=== PATIENT | male | born 1990 | race African-American/Black ===

== ENCOUNTER → 2017-09-23 00:25 | Outpatient (CLI) | payer MEDICAID, SELFPAY ==
[2017-09-23] MEDS: Gadoterate meglumine 20 ML VIAL 17 ML IVP (15:35)
--- NOTE | 2017-09-23 15:45 | DI.REPORT_ITS ---
SYMPTOMS/DIAGNOSIS: ARTERIOVENOUS MALFORMATION S/P PROTON BEAM RADIATION, Q28.2 MRI OF THE BRAIN: Pre and post contrast examination was performed. Comparison is with the prior examinations. There is again seen a large arteriovenous malformation involving the right frontal lobe. There is numerous artifact present, consistent with prior embolization. There are persistent flow voids present within the malformation. There are large superficial cortical draining veins seen along the right frontal and right parietal lobe, in addition to draining veins seen adjacent to the anterior right temporal lobe. On the FLAIR images, there is again seen mild hyperintense signal and there is a persistent mild midline shift to the left of approximately 4-5 mm. The diffusion weighted images show no evidence of an acute infarct. No acute intracranial hemorrhage is present. The ventricles are intact. The basilar cisterns are patent. There is a small mucus retention cyst or polyp in the right maxillary sinus. There is mild mucosal thickening seen in the ethmoid air cells. The remaining visualized paranasal sinuses are clear. No fluid levels are present. The mastoid air cells are well pneumatized. IMPRESSION: 1. 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 Persistent large cortical draining veins and mild leftward shift of the midline structures. 2. No acute hemorrhage or infarct.
== END ==
PROVIDERS: PCP Family Medicine; Visit Provider Psychiatry & Neurology Neurology
DX: Q28.2 Arteriovenous malformation of cerebral vessels (principal); Z98.890 Other specified postprocedural states
CPT/HCPCS: 70553

== ENCOUNTER 2017-09-30 08:21 | Emergency (ER) | payer MEDICAID, SELFPAY ==
[2017-09-30] VITALS (7 sets, daily range): BP systolic 115; BP diastolic 48; PULSE 76; RESP 16; TEMP 36.5; O2SAT 90–100
[2017-09-30] MEDS: Normal Saline 1,000 ML 1000 ML IV ×2 (08:40→09:44)
[2017-09-30] MEDS: Ondansetron 4 MG/2 ML VIAL (08:43)
[2017-09-30] MEDS: Pantoprazole 40 MG VIAL IVP (08:49)
[2017-09-30] MEDS: methylPREDNISolone SUCC 125 MG VIAL IVP (08:50)
[2017-09-30] MEDS: Acetaminophen 500 MG TAB 1000 MG PO (08:51)
[2017-09-30] MEDS: diphenhydrAMINE 50 MG/ML VIAL 25 MG IVP (08:53)
[2017-09-30] MEDS: Metoclopramide 10 MG/2 ML VIAL IVP (08:55)
[2017-09-30 09:06] LABS: Abs Immature Grans 0.03 k/cumm (0.0-0.09); Absolute Basophil Count 0.02 k/cumm (0.0-0.2); Absolute Eosinophil Count 0.17 k/cumm (0.0-0.7); Absolute Lymphocyte Count 1.41 k/cumm (1.2-3.4); Absolute Monocyte Count 0.58 k/cumm (0.11-0.7); Absolute Neutrophil Count 5.95 k/cumm (1.2-6.7); Basophils % 0.2; Eosinophils % 2.1; HCT 39.2 % (40.0-50.0); HGB 13.5 g/dL (13.5-17.5); Immature Grans % 0.4; Lymphocytes % 17.3; Mean Corp. HGB Concentration 34.4 g/dL (32.0-36.0); Mean Corpuscular Hemoglobin 31.1 pg (27.0-33.0); Mean Corpuscular Volume 90.3 fL (80-95); Mean Platelet Volume 11.8 fL (8.0-11.0); Monocytes % 7.1; Neutrophils % 72.9; Platelet Count 199 x1000/uL (130-400); RBC 4.34 m/cumm (4.50-6.00); White Blood Cell Count 8.16 k/cumm (4.4-10.8)
[2017-09-30 09:16] LABS: Lipase 265 U/L (73-393)
[2017-09-30 09:21] LABS: ALT 43 U/L (12-78); AST 50 U/L (15-37); Albumin 3.7 g/dL (3.4-5.0); Alkaline Phosphatase 91 U/L (46-116); Anion Gap 14.1 mmol/L (3-11); BUN 7 mg/dL (7-18); Bilirubin, Total 0.3 mg/dL (0.2-1.0); CO2 19.9 mmol/L (21.0-32.0); CREATININE 1.33 mg/dL (0.70-1.30); Calcium 8.2 mg/dL (8.5-10.1); Chloride 108 mmol/L (98-107); Glucose 180 mg/dL (70-100); Potassium 3.2 mmol/L (3.5-5.1); Sodium 142 mmol/L (136-145); Total Protein 6.6 g/dL (6.4-8.2)
[2017-09-30] MEDS: Potassium Chloride 20 MEQ TABCR 40 MEQ PO (09:38)
[2017-09-30 09:43] LABS: VALPROIC ACID 4.1 ug/mL (50-100)
--- NOTE | 2017-09-30 10:30 | ED.GENADUL_ITS ---
Disposition Clinical Impression: Seizure, Dehydration, Nausea and vomiting Disposition: HOME Condition: Good Instructions: Dehydration (ED), Acute Nausea and Vomiting (ED) Additional Instructions: Please continue to drink 8-10 cups of water per day. Please take your home medications as directed. Please avoid any spicy foods. Please refill your home prescription of your antacid medication. Please follow-up with your neurologist as soon as possible. If you notice any worsening of your symptoms, or any new symptoms such as vomiting, diarrhea, fever, chills, shortness of breath, chest pain, numbness, weakness, or fainting , please return immediately to the emergency department for reevaluation. Please follow up with your primary care provider as soon as possible for reassessment and reevaluation. As always, it was a pleasure participating in your medical care today. You should not drive, operate machinery, climb heights (such as a ladder), swim , or bathe alone or do anything else which could be dangerous if you would have another seizure. Please abide by this for the next 6 months or until cleared by a physician. Referrals: Radha Bai MD [ [facility] STAFF PHYSICIAN] - Medical Decision Making - Lab Data Laboratory Tests 09/30/17 09/30/17 09/30/17 08:45 08:45 08:45 WBC 8.16 RBC 4.34 L Hgb 13.5 Hct 39.2 L MCV 90.3 MCH 31.1 MCHC 34.4 RDW 13.0 Plt Count 199 MPV 11.8 H Immature Gran % 0.4 Neutrophils % 72.9 Lymphocytes % 17.3 Monocytes % 7.1 Eosinophils % 2.1 Basophils % 0.2 Absolute Neutrophils 5.95 Absolute Lymphocytes 1.41 Absolute Monocytes 0.58 Absolute Eosinophils 0.17 Absolute Basophils 0.02 Sodium 142 Potassium 3.2 L Chloride 108 H Carbon Dioxide 19.9 L Anion Gap 14.1 H BUN 7 Creatinine 1.33 H Estimated GFR/1.73 m2 >= 60.00 Glucose 180 H Calcium 8.2 L Total Bilirubin 0.3 AST 50 H ALT 43 Alkaline Phosphatase 91 Total Protein 6.6 Albumin 3.7 Lipase 265 Total Valproic Acid 09/30/17 08:45 WBC RBC Hgb Hct MCV MCH MCHC RDW Plt Count MPV Immature Gran % Neutrophils % Lymphocytes % Monocytes % Eosinophils % Basophils % Absolute Neutrophils Absolute Lymphocytes Absolute Monocytes Absolute Eosinophils Absolute Basophils Sodium Potassium Chloride Carbon Dioxide Anion Gap BUN Creatinine Estimated GFR/1.73 m2 Glucose Calcium Total Bilirubin AST ALT Alkaline Phosphatase Total Protein Albumin Lipase Total Valproic Acid 4.1 L - Medical Decision Making This is a 27-year-old male with a past medical history of seizures who presents for evaluation of seizure. He has seizures roughly once every month, it is been around a month since his last seizure. He was nauseous yesterday and felt slightly poorly no vomiting then, he does eat regular spicy foods. He does have a history of ulcers, but does not take his home Protonix or omeprazole. He has refills for these but has not refilled them. His seizure was typical for his normal seizures, by the time he arrived in the ER he was acting normally. No signs of meningitis, neck pain or meningismus, focal neurologic deficits or abnormalities. He does have a history of an AVM, but with his headache resolved with medication, and no neurologic deficits and did not being the worst headache of his life, I feel that his signs and symptoms are inconsistent with a AVM injury or issue. Patient's laboratory workup suggest dehydration in conjunction with his clinical exam. His Depakote level was low, most likely secondary to him not taking his Depakote last night or today. We have given him all of his home medications. The patient is feeling much better after rehydration, GI cocktail and migraine cocktail. With his improvement of his symptoms I feel he is safe to be discharged home with close follow-up with his primary care provider. We discussed the importance of close neurology follow-up as well as red flags which to return the patient understands. I have extensively reviewed the treatment plan and discharge instructions with the patient and their family. I have addressed all patient concerns at this time. The patient and family was made aware of what symptoms to monitor for that would warrant a return to the emergency department. Discussed the plan with the patient and family, they demonstrate verbal understanding and agreement with our assessment and plan at this time. History of Present Illness - General Chief complaint: Nausea/Vomit/Diar Stated complaint: SMITA Time Seen by Provider: 09/30/17 08:30 - History of Present Illness Initial comments: This is a 27-year-old male with a past medical history of seizures, AVM, who sees Dr. Henry of neurology here in [place]. He takes Topamax, Lamictal, and Depakote. Patient states that last night he forgot to take his Depakote, and this morning he did not take any of his seizure medications. He had some nausea and vomiting as well as one seizure. He developed a mild headache after the seizure. He states that it feels similar to previous headaches, he denies any thunderclap onset, or that it is the worst headache of his life. He had no falls, traumas, or any other events. The seizure lasted less than 5 minutes. It was grand mal in nature which is classic to his seizures. It was witnessed by his mother and family. He had no bowel or bladder incontinence or mastication in the mouth. He had a postictal phase shortly thereafter, by the time the patient arrived to the emergency department is feeling much better and at his baseline. He did have 3-4 episodes of vomiting with the EMS, and states that last night he had had an upset stomach with some mild nausea. The patient does admit to a small amount of coffee grounds in his vomitus. He denies any hematochezia melena or acholic stool. He denies any vision changes numbness tingling or weakness. He denies any significant abdominal pain but does admit to his nausea. Patient denies any other complaints at this time. She denies any recent surgeries. He is adopted and family history is relatively unknown. He denies any IV or illicit drug use. He has no other complaints at this time. - Related Data Zolpidem Tartrate [Ambien] 0 PO DAILY tab-cap 01/11/17 Divalproex Sodium 6 cap PO as directed #570 tabec 03/03/17 Lamotrigine 200 mg PO BID #60 tab-cap 03/03/17 Topiramate [Topamax] 200 mg PO BID #60 tab-cap 03/30/17 Clonazepam 0.5 mg PO PRN #10 tab-cap NS 07/08/17 Lamotrigine 100 mg PO BID #180 tab-cap 07/08/17 Diazepam [Valium] 5 mg PO ONCE #2 tab-cap 09/07/17 Allergies Allergy/AdvReac Type Severity Reaction Status Date / Time No Known Allergies Allergy Unverified 09/06/17 13:00 Review of Systems Other: 10 point review of systems was performed, pertinent positives and negatives are noted in the history of present illness. Past Medical History - Past Medical History Medical history: seizures Surgical history: no surgical history, other, non-contributory Family history: no significant family history - Social History Alcohol use: heavy Drug use: none General Exam - Other Other exam information: 1.Const: Well-nourished, Well-developed, appearing stated age 2.Eyes: PERRL, no conjunctival injection, and symmetrical lids. 3.ENT: Atraumatic external nose and ears. Notably dry MM. Neck: Symmetric, trachea midline, No thyromegaly. Patient demonstrates good movement of cervical neck. There is no nuchal rigidity, no nuchal tenderness. Patient is able to flex the neck without any difficulty or significant pain. Negative Kernig's and Brudzinski sign. 4.CVS: +S1/S2, No murmurs or gallops. Peripheral pulses 2+ and equal in all extremities. Brisk capillary refill in all extremities. 5.RESP: Unlabored respiratory effort. Clear to auscultation bilaterally. No wheezes rales or rhonchi 6.GI: Soft, Nontender/Nondistended, No hepatosplenomegaly. No guarding or rebound. 7.MSK: Normocephalic/Atraumatic, Extremities w/o deformity or ttp No cyanosis or clubbing, Normal movement of all extremities 8.Skin: Warm, Dry. No rashes or lesions. 9.Neuro: boiler attendant II-XII grossly intact. Sensation grossly intact, no focal neurologic deficits. All 6 cardinal planes of vision or fully intact. No evidence of horizontal or vertical nystagmus. The patient demonstrated a normal [id number], good dexterity. There was no evidence of dysdiadochokinesia. Patient was able to ambulate without difficulty. There was no wide-based gait. Romberg, and [id number] are both normal on testing. Sensation was intact bilaterally as well as muscle strength bilaterally for all extremities. Patient was able to verbalize butter cup with no slurring, or miss pronunciation. 10.Psych: (AAO) x3. Appropriate mood and affect Course Vital Signs - 24 hr 09/30/17 08:29 Temperature 36.5 C Pulse 76 Respiratory 16 Rate Blood Pressure 115/48 Pulse Oximetry 99
[2017-09-30] MEDS: Divalproex 250 MG TABEC PO (10:47)
[2017-09-30] MEDS: lamoTRIgine 100 MG TAB PO (10:47)
[2017-09-30] MEDS: Topiramate 100 MG TAB 200 MG PO (10:47)
[2017-09-30] MEDS: Ketorolac 30 MG/ML VIAL IM (10:53)
== END 2017-09-30 11:28 | disposition home or self-care (01) ==
PROVIDERS: Emergency Provider Student in an Organized Health Care Education/Training Program; PCP Family Medicine
DX: G40.909 Epilepsy, unspecified, not intractable, without status epilepticus (principal); E86.0 Dehydration; R11.2 Nausea with vomiting, unspecified; T47.1X6A Underdosing of other antacids and anti-gastric-secretion drugs, initial encounter; Z91.14 Patient's other noncompliance with medication regimen
CPT/HCPCS: 36415; 80053; 83690; 96361; 96372; 96374; 96375; 99284; 80164; 85025; J1200; J1885; J2405; J2765; J2930

== ENCOUNTER 2017-11-03 09:53 | Emergency (ER) | payer MEDICAID, SELFPAY ==
[2017-11-03 09:57] VITALS: BP 135/66; PULSE 92; RESP 16; TEMP 37; O2SAT 97
--- NOTE | 2017-11-03 10:09 | W.ED.GENAD ---
Discharge Plan Disposition Patient Disposition: HOME Condition: Good Discharge Details Chief Complaint: Orthopedic Clinical Impression: Contusion Primary Care Provider: Veronika Palmer ED Provider: Keila Freeman Home Meds and New Rx's Prescriptions: Continue lamotrigine 200 MG tablet 200 mg PO BID Qty: 60 RF: 5 divalproex 125 MG tablet,delayed release (DR/EC) 6 cap PO as directed Qty: 570 RF: 11 topiramate [Topamax] 200 MG tablet 200 mg PO BID Qty: 60 RF: 5 lamotrigine 100 MG tablet 100 mg PO BID Qty: 180 RF: 3 clonazepam 0.5 MG tablet,disintegrating 0.5 mg PO PRN Qty: 10 RF: 0 perampanel [Fycompa] 2 MG tablet 2 mg PO HS Qty: 60 RF: 3 No Action omeprazole 20 mg Capsule,Delayed Release(Dr/Ec) 20 mg PO BID RF: 0 Discharge Instructions Additional Instructions: Keep hand elevated above level of his heart as much as possible during the day. Use heat or ice to affected area Referrals: Veronika Palmer [Primary Care Provider] - (Please see primary care provider as needed) Medical Decision Making MDM Narrative Medical decision making narrative: Patient presents for evaluation of right hand swelling and pain following a seizure he had on Wednesday. Will obtain x-ray of hand and wrist as he does have some limited range of motion and pain to the radial aspect of his right wrist. Ice was applied by nursing. X-ray shows no acute fractures. Will continue contusion care instructions at discharge Differential Diagnosis Fracture, cellulitis, continue Medical Records Medical records reviewed: Yes I reviewed the patient's medical records. Imaging Data Radiologic Study: Attestation: I personally reviewed and interpreted this imaging study as follows: Imaging: X-Ray (Right hand) My impression: No acute finding Radiologist's impression: No acute finding Radiologic Study #2: Attestation: I personally reviewed and interpreted this imaging study as follows: Imaging: X-Ray (Right wrist complete) My impression: No acute finding Radiologist's impression: No acute findings patient states he had a seizure on Wednesday. States he does have breakthrough seizures at times. Noticed that he had pain and swelling to his right hand following the seizure. Has had ongoing pain swelling and limited range of motion. No obvious deformity. No rash or redness. No open areas HPI - General Adult General Date/Time Provider Initiated Documentation: 11/03/17 10:08. Related Data Home Medications Medication Instructions Recorded Confirmed omeprazole 20 mg PO BID 11/03/17 11/03/17 Allergies Allergy/AdvReac Type Severity Reaction Status Date / Time No Known Allergies Allergy Unverified 11/03/17 09:58 General Stated Complaint: Orthopedic DWIGHT: 4 right hand pain and swelling Review of Systems Review of Systems All systems reviewed & are unremarkable except as noted in HPI and below Musculoskeletal Reports arthralgias (Right hand), Reports joint swelling (Right hand) and Reports limited range of motion Integumentary/Breasts Denies rash, Denies unusual bruising and Denies wounds [facility] Social History Smoking/Tobacco Use Status: Current every day Exam Const General: cooperative, healthy appearing, comfortable and no acute distress Nutritional Appearance: well nourished HENMT Head: normal to inspection Cardio Rate: regular rate (Radial pulse) Rhythm: regular rhythm (Radial pulse) Extrem General: abnormal ROM (Limited range of motion to wrist due to swelling and pain) and normal capillary refill Right upper extremity: normal to inspection Left upper extremity: normal to inspection Hand/finger images: 1. Swelling to dorsum of right Course Vital Signs Temperature 37.0 C 11/03/17 09:57 Pulse 92 H 11/03/17 09:57 Respiratory Rate 16 11/03/17 09:57 Blood Pressure 135/66 11/03/17 09:57 Pulse Oximetry 97 11/03/17 09:57 Temperature 37.0 C 11/03/17 09:57 Pulse 92 H 11/03/17 09:57 Respiratory Rate 16 11/03/17 09:57 Blood Pressure 135/66 11/03/17 09:57 Pulse Oximetry 97 11/03/17 09:57
--- NOTE | 2017-11-03 10:11 | DI.RAD_ITS ---
SYMPTOM/DIAGNOSIS: TRAUMA, PAIN, SWELLING RIGHT WRIST: Three views. No bone or joint abnormality is identified. The soft tissues are unremarkable. IMPRESSION: Negative examination. RIGHT HAND: Three views. No acute fracture or dislocation is seen. The soft tissues are unremarkable. IMPRESSION: Negative examination.
--- NOTE | 2017-11-03 10:12 | ED.GENADUL_ITS ---
Discharge Plan Disposition Patient Disposition: HOME Condition: Good Discharge Details Chief Complaint: Orthopedic Clinical Impression: Contusion Primary Care Provider: Veronika Palmer ED Provider: Keila Freeman Home Meds and New Rx's Prescriptions: Continue lamotrigine 200 MG tablet 200 mg PO BID Qty: 60 RF: 5 divalproex 125 MG tablet,delayed release (DR/EC) 6 cap PO as directed Qty: 570 RF: 11 topiramate [Topamax] 200 MG tablet 200 mg PO BID Qty: 60 RF: 5 lamotrigine 100 MG tablet 100 mg PO BID Qty: 180 RF: 3 clonazepam 0.5 MG tablet,disintegrating 0.5 mg PO PRN Qty: 10 RF: 0 perampanel [Fycompa] 2 MG tablet 2 mg PO HS Qty: 60 RF: 3 No Action omeprazole 20 mg Capsule,Delayed Release(Dr/Ec) 20 mg PO BID RF: 0 Discharge Instructions Additional Instructions: Keep hand elevated above level of his heart as much as possible during the day. Use heat or ice to affected area Referrals: Veronika Palmer [Primary Care Provider] - (Please see primary care provider as needed) Medical Decision Making MDM Narrative Medical decision making narrative: Patient presents for evaluation of right hand swelling and pain following a seizure he had on Wednesday. Will obtain x- ray of hand and wrist as he does have some limited range of motion and pain to the radial aspect of his right wrist. Ice was applied by nursing. X-ray shows no acute fractures. Will continue contusion care instructions at discharge Differential Diagnosis Fracture, cellulitis, continue Medical Records Medical records reviewed: Yes I reviewed the patient's medical records. Imaging Data Radiologic Study: Attestation: I personally reviewed and interpreted this imaging study as follows: Imaging: X-Ray (Right hand) My impression: No acute finding Radiologist's impression: No acute finding Radiologic Study #2: Attestation: I personally reviewed and interpreted this imaging study as follows: Imaging: X-Ray (Right wrist complete) My impression: No acute finding Radiologist's impression: No acute findings patient states he had a seizure on Wednesday. States he does have breakthrough seizures at times. Noticed that he had pain and swelling to his right hand following the seizure. Has had ongoing pain swelling and limited range of motion. No obvious deformity. No rash or redness. No open areas HPI - General Adult General Date/Time Provider Initiated Documentation: 11/03/17 10:08 . Related Data Home Medications Medication Instructions Recorded Confirmed omeprazole 20 mg PO BID 11/03/17 11/03/17 Allergies Allergy/AdvReac Type Severity Reaction Status Date / Time No Known Allergies Allergy Unverified 11/03/17 09:58 General Stated Complaint: Orthopedic DWIGHT: 4 right hand pain and swelling Review of Systems Review of Systems All systems reviewed & are unremarkable except as noted in HPI and below Musculoskeletal Reports arthralgias (Right hand), Reports joint swelling (Right hand) and Reports limited range of motion Integumentary/Breasts Denies rash, Denies unusual bruising and Denies wounds [facility] Social History Smoking/Tobacco Use Status: Current every day Exam Const General: cooperative, healthy appearing, comfortable and no acute distress Nutritional Appearance: well nourished HENMT Head: normal to inspection Cardio Rate: regular rate (Radial pulse) Rhythm: regular rhythm (Radial pulse) Extrem General: abnormal ROM (Limited range of motion to wrist due to swelling and pain ) and normal capillary refill Right upper extremity: normal to inspection Left upper extremity: normal to inspection Hand/finger images: 2 1. Swelling to dorsum of right Course Vital Signs Temperature 37.0 C 11/03/17 09:57 Pulse 92 H 11/03/17 09:57 Respiratory Rate 16 11/03/17 09:57 Blood Pressure 135/66 11/03/17 09:57 Pulse Oximetry 97 11/03/17 09:57 Temperature 37.0 C 11/03/17 09:57 Pulse 92 H 11/03/17 09:57 Respiratory Rate 16 11/03/17 09:57 Blood Pressure 135/66 11/03/17 09:57 Pulse Oximetry 97 11/03/17 09:57
== END 2017-11-03 11:19 | disposition home or self-care (01) ==
LOC: ER 11:21
PROVIDERS: Emergency Provider Nurse Practitioner Acute Care; PCP Family Medicine
DX: S60.221A Contusion of right hand, initial encounter (principal); X58.XXXA Exposure to other specified factors, initial encounter; Z86.69 Personal history of other diseases of the nervous system and sense organs
CPT/HCPCS: 99283; 73110; 73130

== ENCOUNTER 2017-12-27 09:31 | Outpatient (CLI) | payer MEDICARE, MEDICAID, SELFPAY ==
[2017-12-29 12:13] LABS: Lamotrigine 16.4 mcg/mL (2.5 - 15.0)
== END 2017-12-27 09:51 ==
PROVIDERS: PCP Family Medicine; Visit Provider Psychiatry & Neurology Neurology
DX: G40.211 Localization-related (focal) (partial) symptomatic epilepsy and epileptic syndromes with complex partial seizures, intractable, with status epilepticus (principal); Z51.81 Encounter for therapeutic drug level monitoring; Z79.899 Other long term (current) drug therapy
CPT/HCPCS: 36415; 80175; 80164

== ENCOUNTER → 2018-03-01 14:05 | Outpatient (BNVA) | payer MEDICARE, MEDICAID, SELFPAY | PROVIDERS: PCP Family Medicine; Visit Provider Psychiatry & Neurology Neurology | DX: G40.211 Localization-related (focal) (partial) symptomatic epilepsy and epileptic syndromes with complex partial seizures, intractable, with status epilepticus (principal); Q28.2 Arteriovenous malformation of cerebral vessels; G47.00 Insomnia, unspecified | CPT/HCPCS: 99214 ==

== ENCOUNTER 2018-04-02 14:46 | Emergency (ER) | payer MEDICARE, MEDICAID, SELFPAY ==
[2018-04-02] VITALS (45 sets, daily range): BP systolic 101–144; BP diastolic 49–107; PULSE 89–156; RESP 15–36; TEMP 37.1; O2SAT 97–100
[2018-04-02] MEDS: PROPOFOL 1,000 MG/100 ML BTL 25 MG (14:30)
--- NOTE | 2018-04-02 14:33 | DI.RAD_ITS ---
SYMPTOM/DIAGNOSIS: INTUBATED CHEST X-RAY: Portable AP view. Comparison 05/06/16 There is an endotracheal tube present. The tip of the tube is seen at the level of the clavicles approximately 9 cm above the kamari. There does appear to be a small infiltrate in the right upper lobe. The lungs are otherwise clear. No effusions or pneumothoraces are identified. Heart size and pulmonary vasculature are within normal limits. IMPRESSION: 1. Endotracheal tube tip seen at the level of the clavicles, approximately 9 cm above the kamari. 2. Small right upper lobe infiltrate.
--- NOTE | 2018-04-02 14:33 | DI.CT_ITS ---
SYMPTOM/DIAGNOSIS: SEIZURE, INTUBATED, H/O AVM CT BRAIN: Noncontrast. Comparison 09/03/17 There is a large amount of artifact from the patient's prior embolization or coiling, within normal limits. No acute midline shift or mass effect is identified. No definite intracranial hemorrhage seen. The visualized paranasal sinuses are clear. The mastoid air cells are well pneumatized. The calvarium is intact. There are large draining veins seen in the right frontoparietal region. IMPRESSION: No definite acute intracranial process. 2. 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
--- NOTE | 2018-04-02 14:33 | DI.CT_ITS ---
SYMPTOM/DIAGNOSIS: SEIZURE, INTUBATED, H/O AVM CTA HEAD AND NECK: CTA NECK: CT angiography was performed with multi slice acquisition and multi planar and 3D reconstruction. On the lateral topogram there does appear to be coiled tubing within the oral pharyngeal region. Please correlated with direct inspection. There is patient motion artifact present. The common carotid arteries are unremarkable. No definite dissection or occlusion. No significant stenosis is present. The external carotid arteries are unremarkable without evidence of occlusion or significant stenosis. The extracranial internal carotid arteries are unremarkable without evidence of dissection or occlusion. No significant stenosis is seen. Vertebral arteries are unremarkable without evidence of dissection, occlusion or significant stenosis. The visualized lung apices are clear. IMPRESSION: 1. No significant tubing seen in the oropharyngeal region. Please correlate clinically. CTA HEAD: CT angiography was performed with multi slice acquisition and multi planar and 3D reconstruction. The examination is limited due to patient motion artifact. There is extensive artifact due to the patient's prior coiling/embolization of the large arterial venous malformation. This obscures evaluation seen in the anterior and middle cranial fossa. There are large draining veins seen along the right frontal parietal and temporal bones. There is limited visualization of the intracranial portions of the internal carotid arteries but no significant stenosis or aneurysm is appreciated. The anterior cerebral arteries are not well visualized. There is limited visualization of the middle cerebral arteries but no significant stenosis or aneurysm appreciated. There is limited visualization of the posterior cerebral arteries but no significant stenosis or aneurysm seen. The vertebral arteries and basilar artery are unremarkable without occlusion, significant stenosis or aneurysm. IMPRESSION: 1. Limited examination due to patient motion artifact and streaked artifact from the patient's coiling/embolization of the arterial venous malformation. 2. Visualized portions of the anterior middle and cerebral arteries are unremarkable. 3. Large right sided draining veins.
[2018-04-02] MEDS: Normal Saline 1,000 ML 1000 ML IV ×2 (14:45→16:15)
[2018-04-02] MEDS: MIDAZOLAM 50 MG in Normal Saline 90 ML 10 MG IV (14:45)
[2018-04-02 14:56] LABS: Abs Immature Grans 0.72 k/cumm (0.0-0.09); HCT 47.6 % (40.0-50.0); HGB 15.6 g/dL (13.5-17.5); Mean Corp. HGB Concentration 32.8 g/dL (32.0-36.0); Mean Corpuscular Hemoglobin 30.6 pg (27.0-33.0); Mean Corpuscular Volume 93.3 fL (80-95); Mean Platelet Volume 11.6 fL (8.0-11.0); Platelet Count 306 x1000/uL (130-400); RBC Distribution Width 13.2 % (11.8-14.1); White Blood Cell Count 15.61 k/cumm (4.4-10.8)
[2018-04-02 14:57] LABS: Absolute Eosinophil Count 0.31 k/cumm (0.0-0.7)
[2018-04-02 15:07] LABS: Absolute Lymphocyte Count 7.65 k/cumm (1.2-3.4); Absolute Monocyte Count 0.94 k/cumm (0.11-0.7); Absolute Neutrophil Count 6.24 k/cumm (1.2-6.7); Atypical Lymphocytes % 5
[2018-04-02 15:08] LABS: Diff Comment Manual Differential; RBC Morphology Normal
[2018-04-02 15:20] LABS: HCO3 9 mmol/L (22-28); pCO2 33 mmHg (34-47); pO2 85 mmHg (83-108); sO2 90 % (94-98); tCO2 9 mmol/L (22-29)
[2018-04-02 15:34] LABS: VALPROIC ACID 11.8 ug/mL (50-100)
--- NOTE | 2018-04-02 15:40 | DI.VRAD_ITS ---
EXAM: XR Chest, 1 View EXAM DATE/TIME: 04/02/2018 2:37 PM CLINICAL HISTORY: 27 years old, male; Device placement; Ett placement (vent status) TECHNIQUE: XR of the chest, 1 view. COMPARISON: CR CHEST 2 VIEWS PA,LAT 05/06/2016 3:41 PM FINDINGS: Tubes, catheters and devices: Endotracheal tube 9.4 cm above the kamari. Tip at the level of the clavicular heads. Lungs: Faint opacity inferior aspect right upper lobe with mild elevation of the minor fissure. Left lung appears clear. Pleural space: Unremarkable. No pleural effusion. No pneumothorax. Heart/Mediastinum: Unremarkable. No cardiomegaly. Bones/joints: Unremarkable. IMPRESSION: 1. Endotracheal tube 9.4 cm above the kamari. Tip at the level of the clavicular heads. 2. Faint opacity inferior aspect right upper lobe with mild elevation of the minor fissure. Dictated and Authenticated by: Cherie Perkins MD. Ordering:PHYLICIA Pina MD
[2018-04-02 15:45] LABS: ALT 129 U/L (12-78); AST 126 U/L (15-37); Albumin 4.3 g/dL (3.4-5.0); Alkaline Phosphatase 121 U/L (46-116); Anion Gap 26.6 mmol/L (3-11); BUN 16 mg/dL (7-18); Bilirubin, Total 0.4 mg/dL (0.2-1.0); CO2 11.4 mmol/L (21.0-32.0); CREATININE 2.66 mg/dL (0.70-1.30); Calcium 8.9 mg/dL (8.5-10.1); Chloride 103 mmol/L (98-107); Estimated GFR 28.98 (mL/min/1.73m2); Glucose 129 mg/dL (70-100); Potassium 4.9 mmol/L (3.5-5.1); Sodium 141 mmol/L (136-145); TSH (W/Ref FT4) 4.14 uIU/mL (0.358-3.74); Total Protein 7.8 g/dL (6.4-8.2)
[2018-04-02 15:46] LABS: Troponin I 0.07 ng/mL (0.00-0.06)
[2018-04-02 15:47] LABS: Ammonia 354 umol/L (11-32)
[2018-04-02] MEDS: Omnipaque 350 MG/ML 100 ML BTL IJ (15:57)
[2018-04-02 16:03] LABS: ETHANOL BLOOD < 3.0 mg/dL (<3)
--- NOTE | 2018-04-02 16:03 | W.ED.GENAD ---
Discharge Plan Disposition Patient Disposition: ASHLEY HINES ([facility]) Condition: Critical Discharge Details Chief Complaint: Seizure Clinical Impression: Epilepsy with status epilepticus, Aspiration pneumonia, Acute kidney injury, Transaminitis, Hyperammonemia, Respiratory failure Reason For Visit: seizure Primary Care Provider: Veronika Palmer ED Provider: Yovani Villarreal Home Meds and New Rx's Prescriptions: No Action divalproex [Depakote ER] 500 mg tablet extended release 24 hr 500 mg PO BID Qty: 180 RF: 3 lamotrigine 200 mg tablet 200 mg PO BID Qty: 180 RF: 3 lamotrigine 100 mg tablet 100 mg PO HS Qty: 90 RF: 3 topiramate [Topamax] 200 mg tablet 200 mg PO BID Qty: 180 RF: 3 clonazepam 0.5 mg tablet,disintegrating 0.5 mg PO PRN Qty: 10 RF: 2 omeprazole 20 mg capsule,delayed release(DR/EC) 40 mg PO DAILY RF: 0 Discharge Data Discharge Date/Time-TO BE ENTERED AT DEPARTURE: 04/02/18 19:17 Medical Decision Making This is a 27-year-old male with a history of seizures and an atrial sensing binder made by neurology on lamotrigine, and Depakote. He presents today for seizure. He stated suicidal thoughts last night to his parents after he ran out of weed, then this morning he was found acting atypical and then had a 5-minute seizure. No other modifying factors that we are aware of. His medication bottle seem to be appropriately filled, there was a small amount of alcohol and a bottle next to him, but no other significant abnormal findings in the patient's room. On arrival the patient was notably obtunded and intubated by EMS. He was vomitus in his mouth. He was not actively seizing on arrival. He does demonstrate spontaneous movement of all extremities. Oxygen saturations are normal, patient is notably tachycardic and notably tachypneic breathing over the BVM. We started propofol and Versed drip for sedation. We will get a CT scan of the head as well as a CTA for evaluation of abnormalities or changes. Perform laboratory workup, including a tox screen. Differential includes overdose, seizure, medical noncompliance. Laboratory workup shows evidence of mild multisystem organ failure with increased creatinine, transaminitis which may be secondary to Depakote, and the patient's initial acidosis has improved from 7.0-7.22. ABG continues to show a metabolic acidosis O. Lactate is notably elevated at 24. Troponin slightly elevated 0.07. The patient has been given 1 amp of bicarb, Keppra 2000 mg, and is currently on a propofol and Versed drip for adequate sedation. He has had no new seizures since getting the Keppra load. Salicylate and acetaminophen are negative. Urine drug screen alcohol is otherwise benign. Because of the patient's notable status epilepticus, multisystem organ failure, and other abnormalities, I feel that he requires a neuro ICU setting. We did contact the [facility] after being told by [facility] and no beds were available. [facility] has excepted the patient under Dr Metz. I have extensively reviewed the treatment plan with the patient. I have addressed all patient concerns at this time. I have also discussed the plan with the admitting physician and they agree with the current assessment and plan and have agreed to assume responsibility for the patient. All parties demonstrate verbal understanding and agreement with our assessment and plan at this time. Upon my evaluation, this patient had a high probability of imminent or life-threatening deterioration, which required my direct attention, intervention, and personal management. I have personally provided 45 minutes of critical care time exclusive of time spent on separately billable procedures. Time includes review of laboratory data, radiology results, discussion with consultants, and monitoring for potential decompensation. Interventions were performed as documented above. EKG 14: 35 Rate 156, QTc 509, QRS 112, sinus tachycardia, incomplete right bundle branch block, inverted T wave in V1, V2, no ST elevations or depressions. HPI General Date/Time Provider Initiated Documentation: 04/02/18 15:21. HPI Narrative: This is a 27-year-old male with a past medical history of seizure, atrial venous malformation, who presents today for evaluation of seizure. The family family yesterday the patient ran out of weed, and was very upset that he could not get anymore. He was having confrontational episode throughout the day and then in the evening last night the patient stated to his parents that he just want to kill himself and his life and blow his brains out. This morning the patient had his door locked, and after prolonged period of having the door lock the father forcefully entered, the patient stated that he was feeling unwell, and then went into a seizure-like episode. This episode lasted roughly around 5 minutes, EMS was contacted. They arrived the patient had vomited, was not protecting his airway, and was intubated on route. There are no empty bottles of pills at the bedside. There was a small amount of alcohol left in alcohol bottle near the patient, but no other atypical findings. The patient does normally take Depakote, lamotrigine, omeprazole, clonazepam. Related Data Home Medications Medication Instructions Recorded Confirmed omeprazole 20 mg capsule,delayed 40 mg PO DAILY cap 12/01/17 03/01/18 release clonazepam 0.5 mg disintegrating 0.5 mg PO PRN #10 tab-cap NS 03/01/18 03/01/18 tablet divalproex ER 500 mg 500 mg PO BID #180 tab 03/01/18 04/02/18 tablet,extended release 24 hr lamotrigine 100 mg tablet 100 mg PO HS #90 tab-cap 03/01/18 04/02/18 lamotrigine 200 mg tablet 200 mg PO BID #180 tab-cap 03/01/18 04/02/18 topiramate 200 mg tablet 200 mg PO BID #180 tab-cap 03/01/18 03/01/18 Previous Rx's Medication Instructions Recorded clonazepam 0.5 mg disintegrating 0.5 mg PO PRN #10 tab-cap NS 03/01/18 tablet divalproex ER 500 mg 500 mg PO BID #180 tab 03/01/18 tablet,extended release 24 hr lamotrigine 100 mg tablet 100 mg PO HS #90 tab-cap 03/01/18 lamotrigine 200 mg tablet 200 mg PO BID #180 tab-cap 03/01/18 topiramate 200 mg tablet 200 mg PO BID #180 tab-cap 03/01/18 Allergies Allergy/AdvReac Type Severity Reaction Status Date / Time No Known Allergies Allergy Unverified 03/01/18 14:24 General Stated Complaint: Seizure DWIGHT: 1 Review of Systems Review of Systems Unobtainable due to endotracheal tube PFS Social History Smoking and Tabacco status: Current every day Exam Narrative Exam Narrative: 1.Const: Well-nourished, Well-developed, appearing stated age 2.Eyes: PERRL, no conjunctival injection, and symmetrical lids. 3.ENT: Atraumatic external nose and ears. Moist MM. Neck: Symmetric, trachea midline, No thyromegaly. Endotracheal tube is in place as placed by EMS. Notable evidence of vomitus is present around the mouth. 4.CVS: +S1/S2, No murmurs or gallops. Peripheral pulses 2+ and equal in all extremities. Brisk capillary refill in all extremities. 5.RESP: U currently intubated, normal rhonchi in the left lung fallon, some rhonchi in the right lung fallon, primarily upper 6.GI: Soft, Nontender/Nondistended, No hepatosplenomegaly. No guarding or rebound. 7.MSK: Normocephalic/Atraumatic, Extremities w/o deformity or ttp No cyanosis or clubbing, Normal movement of all extremities 8.Skin: Warm, Dry. No rashes or lesions. No evidence of self-inflicted wounds peer 9.Neuro: Pupils are equal round reactive bilaterally, 4-5 mm bilaterally. Corneal reflexes present, patient is spontaneously moving all extremities. 10.Psych: Currently intubated. Course Vital Signs Blood Pressure 136/86 04/02/18 14:48 Pulse Oximetry 100 04/02/18 14:48 Blood Pressure 136/86 04/02/18 14:48 Blood Pressure Position Supine 04/02/18 14:48 Pulse Oximetry 100 04/02/18 14:48 Oxygen Delivery Method Mechanical Ventilator 04/02/18 14:48 Oxygen Flow Rate 0 04/02/18 14:48 End Tidal Co2 26 04/02/18 14:48 Comment 04/02/18 14:48 Lab/Test Results Lab/Test Results: Laboratory Tests Range/Units 04/02/18 04/02/18 04/02/18 14:40 14:40 14:40 WBC (4.4-10.8) k/cumm RBC (4.50-6.00) m/cumm Hgb (13.5-17.5) g/dL Hct (40.0-50.0) % MCV (80-95) fL MCH (27.0-33.0) pg MCHC (32.0-36.0) g/dL RDW (11.8-14.1) % Plt Count (130-400) x1000/uL MPV (8.0-11.0) fL Immature Gran % Neutrophils % Band Neutrophils % % Lymphocytes % Atypical Lymphs % Monocytes % Eosinophils % Basophils % Absolute Neutrophils (1.2-6.7) k/cumm Absolute Lymphocytes (1.2-3.4) k/cumm Absolute Monocytes (0.11-0.7) k/cumm Absolute Eosinophils (0.0-0.7) k/cumm Absolute Basophils (0.0-0.2) k/cumm Metamyelocytes % Myelocytes % Differential Comment RBC Morphology Sodium (136-145) mmol/L 141 Potassium (3.5-5.1) mmol/L 4.9 Chloride (98-107) mmol/L 103 Carbon Dioxide (21.0-32.0) mmol/L 11.4 L Anion Gap (3-11) mmol/L 26.6 H BUN (7-18) mg/dL 16 Creatinine (0.70-1.30) mg/dL 2.66 H Estimated GFR/1.73 m2 (mL/min/1.73m2) 28.98 Glucose (70-100) mg/dL 129 H Lactate (0.6-1.4) mmol/l Calcium (8.5-10.1) mg/dL 8.9 Total Bilirubin (0.2-1.0) mg/dL 0.4 AST (15-37) U/L 126 H ALT (12-78) U/L 129 H Alkaline Phosphatase (46-116) U/L 121 H Ammonia (11-32) umol/L 354 H Troponin I (0.00-0.06) ng/mL 0.07 H Total Protein (6.4-8.2) g/dL 7.8 Albumin (3.4-5.0) g/dL 4.3 TSH (0.358-3.74) uIU/mL 4.14 H Total Valproic Acid (50-100) ug/mL 11.8 L Ethyl Alcohol (<3) mg/dL < 3.0 Range/Units 04/02/18 04/02/18 14:40 14:40 WBC (4.4-10.8) k/cumm 15.61 H RBC (4.50-6.00) m/cumm 5.10 Hgb (13.5-17.5) g/dL 15.6 Hct (40.0-50.0) % 47.6 MCV (80-95) fL 93.3 MCH (27.0-33.0) pg 30.6 MCHC (32.0-36.0) g/dL 32.8 RDW (11.8-14.1) % 13.2 Plt Count (130-400) x1000/uL 306 MPV (8.0-11.0) fL 11.6 H Immature Gran % See Differential Neutrophils % 35.0 Band Neutrophils % % 5.0 Lymphocytes % 44.0 Atypical Lymphs % 5 Monocytes % 6.0 Eosinophils % 2.0 Basophils % 0.0 Absolute Neutrophils (1.2-6.7) k/cumm 6.24 Absolute Lymphocytes (1.2-3.4) k/cumm 7.65 H Absolute Monocytes (0.11-0.7) k/cumm 0.94 H Absolute Eosinophils (0.0-0.7) k/cumm 0.31 Absolute Basophils (0.0-0.2) k/cumm 0.00 Metamyelocytes % 2.0 Myelocytes % 1.0 Differential Comment Manual differential RBC Morphology Normal Sodium (136-145) mmol/L Potassium (3.5-5.1) mmol/L Chloride (98-107) mmol/L Carbon Dioxide (21.0-32.0) mmol/L Anion Gap (3-11) mmol/L BUN (7-18) mg/dL Creatinine (0.70-1.30) mg/dL Estimated GFR/1.73 m2 (mL/min/1.73m2) Glucose (70-100) mg/dL Lactate (0.6-1.4) mmol/l 24.0 H Calcium (8.5-10.1) mg/dL Total Bilirubin (0.2-1.0) mg/dL AST (15-37) U/L ALT (12-78) U/L Alkaline Phosphatase (46-116) U/L Ammonia (11-32) umol/L Troponin I (0.00-0.06) ng/mL Total Protein (6.4-8.2) g/dL Albumin (3.4-5.0) g/dL TSH (0.358-3.74) uIU/mL Total Valproic Acid (50-100) ug/mL Ethyl Alcohol (<3) mg/dL
[2018-04-02 16:04] LABS: Salicylate 4.4 mg/dL (2.8-20.0)
[2018-04-02 16:07] LABS: Acetaminophen < 2 ug/mL (10-30); FREE T4 0.91 ng/dL (0.76-1.46)
[2018-04-02 16:22] LABS: Bilirubin Negative (Negative); Blood Large (Negative); Clarity Sl Cloudy; Glucose Negative (Negative); Ketones Negative (Negative); Leukocyte Esterase Negative (Negative); Nitrite Negative (Negative); Urobilinogen 0.2 EU/dL (Up TO 0.2)
[2018-04-02] MEDS: Sodium Bicarbonate 50 MEQ/50 ML SYR IVP (16:26)
[2018-04-02 16:27] LABS: Site Left Radial; pH 7.04 (7.35-7.45)
[2018-04-02 16:28] LABS: FIO2 75 %; FIO2L Vent L
--- NOTE | 2018-04-02 16:29 | DI.VRAD_ITS ---
EXAM: CT Head Without Contrast EXAM DATE/TIME: 04/02/2018 2:37 PM CLINICAL HISTORY: 27 years old, male; Pain; seizure, intubated, HX AVM TECHNIQUE: Axial computed tomography images of the head/brain without contrast. Coronal and sagittal reformatted images were created and reviewed. COMPARISON: CT HEAD WITHOUT CONTRAST 09/03/2017 and 07/07/2017 FINDINGS: Brain: The patient has undergone prior embolization of a large frontal lobe arteriovenous malformation. Streak artifact from large amount of prior coiling / embolization material obscures portions of the adjacent brain parenchyma. Ventricles: Normal. No ventriculomegaly. Bones/joints: Unremarkable. No acute fracture. Sinuses: Small retention cyst anteromedial right maxillary sinus. Mastoid air cells: Visualized mastoid air cells are unremarkable. No mastoid effusion. Soft tissues: Unremarkable. Vasculature: Large draining dural veins within the right frontoparietal region. IMPRESSION: 1. The patient has undergone prior embolization of a large frontal lobe arteriovenous malformation. Streak artifact from large amount of prior coiling / embolization material obscures portions of the adjacent brain parenchyma. 2. No acute intracranial findings compared to 09/03/2017 and 07/07/2017. Dictated and Authenticated by: Chidi Stovall MD. Ordering:PHYLICIA Pina MD
[2018-04-02 16:30] LABS: HCO3 11 mmol/L (22-28); pCO2 28 mmHg (34-47); pH 7.22 (7.35-7.45); pO2 123 mmHg (83-108); sO2 98 % (94-98); tCO2 10 mmol/L (22-29)
[2018-04-02 16:31] LABS: FIO2 40 %; FIO2L Vent L; Site Right Radial
[2018-04-02] MEDS: AMPICILLIN/SULBACTAM 3 GM in Normal Saline 100 ML IVPB (16:35)
--- NOTE | 2018-04-02 16:39 | DI.VRAD_ITS ---
EXAM: CT Angiography Head With Contrast EXAM DATE/TIME: 04/02/2018 2:37 PM CLINICAL HISTORY: 27 years old, male; Pain; seizure, intubated, HX AVM TECHNIQUE: Axial computed tomographic angiography images of the head with intravenous contrast using CT angiography protocol. All CT scans at this facility use at least one of these dose optimization techniques: automated exposure control; mA and/or kV adjustment per patient size (includes targeted exams where dose is matched to clinical indication); or iterative reconstruction. MIP reconstructed images were created and reviewed. CONTRAST: 100 ml of omni 350 administered intravenously. COMPARISON: CT HEAD 04/02/2018 3:33 PM FINDINGS: Right internal carotid artery: Limited visualization with no significant stenosis. No definite aneurysm. Right anterior cerebral artery: Not well-visualized. Right middle cerebral artery: Limited visualization with no significant stenosis. No definite aneurysm. Right posterior cerebral artery: Limited visualization with no significant stenosis. No definite aneurysm. Right vertebral artery: Unremarkable. No occlusion or significant stenosis. No aneurysm. Left internal carotid artery: Limited visualization with no significant stenosis. No definite aneurysm. Left anterior cerebral artery: Not well-visualized. Left middle cerebral artery: Limited visualization with no significant stenosis. No definite aneurysm. Left posterior cerebral artery: Limited visualization with no significant stenosis. No definite aneurysm. Left vertebral artery: Unremarkable. No occlusion or significant stenosis. No aneurysm. Basilar artery: Unremarkable. No occlusion or significant stenosis. No aneurysm. Other vasculature: The patient has undergone prior embolization of a large frontal lobe arteriovenous malformation. HEAD: Brain: The examination is limited due to motion artifact and streak artifact from large amount of frontal lobe prior coiling / embolization material obscures portions of the adjacent brain parenchyma. Large right-sided draining veins from the AVM in the right frontal, parietal, and temporal regions. IMPRESSION: 1. The patient has undergone prior embolization of a large frontal lobe arteriovenous malformation. 2. The examination is limited due to motion artifact and streak artifact from large amount of frontal lobe prior coiling / embolization material obscures portions of the adjacent brain parenchyma. 3. Large right-sided draining veins from the AVM in the right frontal, parietal, and temporal regions. 4. Patent visualized portions of the anterior cerebral, middle cerebral, and posterior cerebral arteries. EXAM: CT Angiography Neck With Contrast EXAM DATE/TIME: 04/02/2018 2:37 PM CLINICAL HISTORY: 27 years old, male; Pain; seizure, intubated, HX AVM TECHNIQUE: Axial computed tomographic angiography images of the neck with intravenous contrast using CT angiography protocol. MIP reconstructed images were created and reviewed. CONTRAST: 100 ml of OMNI 350 administered intravenously. COMPARISON: CT HEAD 04/02/2018 3:33 PM FINDINGS: VASCULATURE: Right common carotid artery: Normal. No significant stenosis. No dissection or occlusion. Right internal carotid artery: Normal. Extracranial segment is patent with no significant stenosis. No dissection or occlusion. Right external carotid artery: Normal. No occlusion or significant stenosis. Right vertebral artery: Normal. No significant stenosis. No dissection or occlusion. Left common carotid artery: Normal. No significant stenosis. No dissection or occlusion. Left internal carotid artery: Normal. Extracranial segment is patent with no significant stenosis. No dissection or occlusion. Left external carotid artery: Normal. No occlusion or significant stenosis. Left vertebral artery: Normal. No significant stenosis. No dissection or occlusion. Other: The examination is limited due to motion artifact. NECK: Bones/joints: Limited by motion artifact. Soft tissues: Normal. No significant soft tissue swelling. IMPRESSION: 1. The examination is limited due to motion artifact. 2. Patent carotid systems and vertebral arteries bilaterally. COMMENT: Reference per NASCET criteria for degree of stenosis: Mild: <50% stenosis. Moderate: 50-69% stenosis. Severe: 70-94% stenosis. Near occlusion: 95-99% stenosis. Dictated and Authenticated by: Chidi Stovall MD. Ordering:PHYLICIA Pina MD
[2018-04-02 16:43] LABS: Epithelial Cells Rare HPF (Negative); RBC 20-50 (0-2)
[2018-04-02 16:44] LABS: Bacteria Negative HPF (Negative); Mucus Moderate (Negative)
[2018-04-02 16:45] LABS: *AMPHETAMINES SCREEN URINE Negative (Negative); *BARBITURATES SCREEN URINE Negative (Negative); *BENZODIAZEPINES SCREEN URINE POSITIVE (Negative); C & S Indicated? Yes; Cannabinoids THC POSITIVE (Negative); Casts 0-2 Hyaline LPF (Negative); Cocaine Screen,Urine Negative (Negative); METHADONE URINE SCREEN Negative (Negative); OPIATES URINE SCREEN Negative (Negative)
[2018-04-02 16:49] LABS: Tricyclic Antidepressants Negative (Negative)
[2018-04-02] MEDS: PROPOFOL 1,000 MG/100 ML BTL 6 MG (17:44)
[2018-04-02] MEDS: PROPOFOL 1,000 MG/100 ML BTL 26.4 MG (17:47)
[2018-04-02] MEDS: Normal Saline 1,000 ML 120 ML IV (18:26)
[2018-04-05 16:21] LABS: Lamotrigine 5.7 mcg/mL (2.5 - 15.0)
== END 2018-04-02 19:17 | disposition short-term general hospital (02) ==
PROVIDERS: Emergency Provider Student in an Organized Health Care Education/Training Program; PCP Family Medicine
DX: G40.911 Epilepsy, unspecified, intractable, with status epilepticus (principal); J18.9 Pneumonia, unspecified organism; N17.9 Acute kidney failure, unspecified; J96.00 Acute respiratory failure, unspecified whether with hypoxia or hypercapnia; E72.20 Disorder of urea cycle metabolism, unspecified
CPT/HCPCS: 36415; 70496; 70498; 71045; 80053; 80175; 80307; 82805; 93005; 96361; 96365; 96366; 96368; 96375; 99291; 36600; 70450; 80164; 80320; 80329; 81003; 81015; 82140; 83605; 84439; 84443; 84484; 85025; 87086; 93010; J0295; J1953; J3490

== ENCOUNTER 2018-04-15 13:40 | Outpatient (REF) | payer MEDICAID, SELFPAY ==
[2018-04-15 14:11] LABS: ALT 316 U/L (12-78); AST 30 U/L (15-37); Albumin 4.2 g/dL (3.4-5.0); Alkaline Phosphatase 145 U/L (46-116); Anion Gap 14.5 mmol/L (3-11); Bilirubin, Total 0.8 mg/dL (0.2-1.0); CO2 24.5 mmol/L (21.0-32.0); Calcium 9.1 mg/dL (8.5-10.1); Chloride 91 mmol/L (98-107); Creatine Kinase 593 U/L (39-308); Glucose 103 mg/dL (70-100); Potassium 4.1 mmol/L (3.5-5.1); Sodium 130 mmol/L (136-145); Total Protein 8.1 g/dL (6.4-8.2)
[2018-04-15 14:20] LABS: BUN 111 mg/dL (7-18); CREATININE 7.65 mg/dL (0.70-1.30)
== END 2018-04-15 14:00 ==
LOC: NCHCN 13:40
PROVIDERS: PCP Family Medicine; Visit Provider Family Medicine
DX: F41.8 Other specified anxiety disorders (principal); R56.9 Unspecified convulsions; Z86.79 Personal history of other diseases of the circulatory system
CPT/HCPCS: 80053; 82550

== ENCOUNTER 2018-04-21 14:23 | Outpatient (REF) | payer MEDICAID, SELFPAY ==
[2018-04-21 21:29] LABS: HCT 37.2 % (40.0-50.0); HGB 13.1 g/dL (13.5-17.5); Mean Corp. HGB Concentration 35.2 g/dL (32.0-36.0); Mean Corpuscular Hemoglobin 30.8 pg (27.0-33.0); Mean Corpuscular Volume 87.3 fL (80-95); Mean Platelet Volume 11.4 fL (8.0-11.0); RBC 4.26 m/cumm (4.50-6.00); RBC Distribution Width 12.4 % (11.8-14.1); White Blood Cell Count 13.04 k/cumm (4.4-10.8)
[2018-04-21 21:34] LABS: Anion Gap 10.8 mmol/L (3-11); BUN 69 mg/dL (7-18); CO2 29.2 mmol/L (21.0-32.0); CREATININE 2.64 mg/dL (0.70-1.30); Calcium 10.6 mg/dL (8.5-10.1); Chloride 91 mmol/L (98-107); Estimated GFR 29.02 (mL/min/1.73m2); Glucose 101 mg/dL (70-100); Potassium 3.5 mmol/L (3.5-5.1); Sodium 131 mmol/L (136-145)
[2018-04-21 22:05] LABS: Platelet Count 725 x1000/uL (130-400)
== END 2018-04-21 14:43 ==
LOC: NCHCN 14:23
PROVIDERS: PCP Family Medicine; Visit Provider Family Medicine
DX: M62.82 Rhabdomyolysis (principal); R56.9 Unspecified convulsions
CPT/HCPCS: 80048; 85027

== ENCOUNTER 2018-04-25 09:09 | Emergency (ER) | payer MEDICARE, MEDICAID, SELFPAY ==
[2018-04-25] VITALS (41 sets, daily range): BP systolic 77–149; BP diastolic 52–82; PULSE 69–225; RESP 6–35; TEMP 36.5–38.2; O2SAT 95–100
--- NOTE | 2018-04-25 09:23 | W.ED.GENAD ---
Discharge Plan Disposition Patient Disposition: HOME Condition: Improving Discharge Details Chief Complaint: Seizure Clinical Impression: Breakthrough seizure Primary Care Provider: Veronika Palmer ED Provider: Tesfaye Salgado Home Meds and New Rx's Prescriptions: New levetiracetam [Keppra] 500 mg tablet 500 mg PO BID Qty: 60 RF: 0 Continued lamotrigine 200 mg tablet 200 mg PO BID Qty: 180 RF: 3 lamotrigine 100 mg tablet 100 mg PO HS Qty: 90 RF: 3 topiramate [Topamax] 200 mg tablet 200 mg PO BID Qty: 180 RF: 3 sertraline [Zoloft] 25 mg Tablet 25 mg PO DAILY RF: 0 Discharge Instructions Instructions: Recurrent Seizures in Adults (ED) Additional Instructions: Begin Keppra 500mg twice daily. I discussed your case with [facility] and they are to make a sooner followup appointment in clinic for you. Continue your other medications. Please take potassium 20 mEq daily for 3 days time. We have ordered an outpatient recheck of laboratory on Wednesday and have asked our care management team to arrange a follow-up for you in clinic on or Wednesday with Dr. Palmer. Home to rest today. Return to the emergency department for any acute concern. Medical Decision Making 28-year-old male presents from home via EMS with complaint of spray through seizure overnight that was generalized, brief, without tongue biting or associated fever. He says he developed migraine type headache with associated nausea and vomiting. He is brought via EMS and arrives with a temperature of 36.5, pulse 79, blood pressure 149/70. He has some persistent nausea and dry heaves. His past medical history is notable for admission to the [facility] in the third week of March for acute kidney injury with acute liver failure, rhabdomyolysis, seizure. Due to the liver and renal failure his antiepileptic medications were changed and he stopped valproic acid and his Topamax was renally dosed. Lamotrigine was dosed at 200 mg in the morning and 300 mg in p.m. No focal neurologic deficit. He does have a history of an AVM and therefore intracranial bleeding must be ruled out versus migraine type of job. Patient IV access established, referred for laboratories, given fluid bolus, analgesic, antiemetic. CT scan of the head without new acute findings. Laboratories notable for potassium of 2.6 and supplementation initiated in the ED. Patient improving with fluids and parenteral medications. He did have significant renal failure in early March and creatinine has improved to 1.8 today. Case discussed with on-call neurology at [facility]. They recommend starting the patient on Keppra 500 mg twice daily and will arrange a short-term outpatient follow-up with Dr. Hardwick or nurse practitioner in clinic. Patient able to tolerate 20 mEq of IV potassium supplementation in the ED +10 mEq once oral. His potassium is improving & he has home potassium available. I will ask him to take an additional 20 mEq per day and recheck potassium on Wednesday and will have care management arrange a follow-up appointment in clinic for or Wednesday. HPI General Mode of arrival: ambulatory. Date/Time Provider Initiated Documentation: 04/25/18 09:16. Limitations to Documentation: no limitations. Information obtained by: patient. History of Present Illness 28 year old M presents to the emergency department with the chief complaint of Headache and vomiting, described as moderate, Quality is described as dull and constant, and is localized to the head. Patient reports no radiation. Patient started experiencing this hour(s) and it has been constant. No relieving factors improve symptom(s), No exacerbating factors reported . Patient notes other (Seizure overnight). Patient did receive the following treatments prior to arrival, other (Zofran from EMS) Related Data Home Medications Medication Instructions Recorded Confirmed lamotrigine 100 mg tablet 100 mg PO HS #90 tab-cap 03/01/18 04/25/18 lamotrigine 200 mg tablet 200 mg PO BID #180 tab-cap 03/01/18 04/25/18 topiramate 200 mg tablet 200 mg PO BID #180 tab-cap 03/01/18 04/25/18 levetiracetam [Keppra] 500 mg PO BID #60 tab 04/25/18 sertraline [Zoloft] 25 mg PO DAILY 04/25/18 04/25/18 Previous Rx's Medication Instructions Recorded lamotrigine 100 mg tablet 100 mg PO HS #90 tab-cap 03/01/18 lamotrigine 200 mg tablet 200 mg PO BID #180 tab-cap 03/01/18 topiramate 200 mg tablet 200 mg PO BID #180 tab-cap 03/01/18 levetiracetam [Keppra] 500 mg PO BID #60 tab 04/25/18 Allergies Allergy/AdvReac Type Severity Reaction Status Date / Time No Known Allergies Allergy Unverified 03/01/18 14:24 General Stated Complaint: Seizure DWIGHT: 3 Review of Systems Review of Systems 8 systems reviewed and otherwise neg [facility] Medical History Partial symptomatic epilepsy with complex partial seizures, intractable, with status epilepticus (Acute 10/20/16) 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 and with status migrainosus (Acute 08/13/16) Chronic daily headache (Acute 08/13/16) AVM (arteriovenous malformation) brain (Acute) Social History Smoking and Tabacco status: Current every day Exam Narrative Exam Narrative: GEN: awake, alert, oriented 3. Pleasant, well groomed, interactive, in distress. HEAD: Normocephalic, atraumatic ENT: Mucous membranes dry, oropharynx unremarkable, External ear exam unremarkable EYES: PERRL, EOMI NECK: Full ROM, no PARAG, no menigismus CHEST/RESP: Nontender, clear to auscultation bilateral, no wheeze/rhonchi/rales CARDIOVASCULAR: RRR, no murmur, rub kd. 2+ Rad pulse bilateral ABDOMEN: Soft, nontender, no mass. +Bowel sounds EXT: Full ROM, no edema, no rash Neuro: Grossly normal neurologic exam, conversant, interactive. Cranial nerves II through XII intact Psych: Speech fluent, thoughts congruent, affect slightly anxious Course Vital Signs Temperature 36.5 C 04/25/18 09:14 Pulse 79 04/25/18 09:14 Respiratory Rate 18 04/25/18 09:14 Blood Pressure 149/70 H 04/25/18 09:14 Pulse Oximetry 99 04/25/18 09:14 Temperature 36.5 C 04/25/18 09:14 Temperature Source Temporal Artery Scan 04/25/18 09:14 Pulse 79 04/25/18 09:14 Respiratory Rate 18 04/25/18 09:14 Respiratory Effort Non-Labored 04/25/18 09:19 Respiratory Depth Normal 04/25/18 09:19 Respiratory Pattern Normal 04/25/18 09:19 Blood Pressure 149/70 H 04/25/18 09:14 Blood Pressure Position Supine 04/25/18 09:14 Pulse Oximetry 99 04/25/18 09:14 Oxygen Delivery Method Room Air 04/25/18 09:14 Oxygen Flow Rate 0 04/25/18 09:14 Pain Level 7 04/25/18 09:14
[2018-04-25] MEDS: Ondansetron 4 MG/2 ML VIAL IVP (09:31)
[2018-04-25] MEDS: Normal Saline 1,000 ML 2000 ML IV (09:31)
[2018-04-25] MEDS: HYDROmorphone 2 MG/ML VIAL 1 MG IVP (09:31)
[2018-04-25 09:35] LABS: Abs Immature Grans 0.03 k/cumm (0.0-0.09); Absolute Lymphocyte Count 1.81 k/cumm (1.2-3.4); Absolute Neutrophil Count 11.98 k/cumm (1.2-6.7); Basophils % 0.5; Eosinophils % 0.5; HCT 33.3 % (40.0-50.0); HGB 11.8 g/dL (13.5-17.5); Immature Grans % 0.2; Lymphocytes % 12.1; Mean Corp. HGB Concentration 35.4 g/dL (32.0-36.0); Mean Corpuscular Hemoglobin 31.3 pg (27.0-33.0); Mean Corpuscular Volume 88.3 fL (80-95); Mean Platelet Volume 11.1 fL (8.0-11.0); Monocytes % 6.6; Neutrophils % 80.1; Platelet Count 563 x1000/uL (130-400); RBC 3.77 m/cumm (4.50-6.00); RBC Distribution Width 12.5 % (11.8-14.1); White Blood Cell Count 14.96 k/cumm (4.4-10.8)
[2018-04-25 09:39] LABS: Absolute Basophil Count 0.07 k/cumm (0.0-0.2); Absolute Eosinophil Count 0.07 k/cumm (0.0-0.7); Absolute Monocyte Count 0.99 k/cumm (0.11-0.7)
--- NOTE | 2018-04-25 09:40 | NUR.NOTE ---
Nursing Note: Pt awake and alert. c/o headache post seizure. hx of seizures, states his meds got changed a month ago. medicated as ordered. IVF infusing. Plan for head CT. given warm blanket for comfort. will continue to monitor.
[2018-04-25 09:48] LABS: ALT 58 U/L (12-78); AST 27 U/L (15-37); Albumin 3.6 g/dL (3.4-5.0); Alkaline Phosphatase 111 U/L (46-116); Anion Gap 11.6 mmol/L (3-11); BUN 31 mg/dL (7-18); Bilirubin, Total 0.5 mg/dL (0.2-1.0); CO2 27.4 mmol/L (21.0-32.0); CREATININE 1.89 mg/dL (0.70-1.30); Calcium 10.3 mg/dL (8.5-10.1); Chloride 98 mmol/L (98-107); Estimated GFR 42.68 (mL/min/1.73m2); Glucose 172 mg/dL (70-100); Sodium 137 mmol/L (136-145)
[2018-04-25 09:52] LABS: PTT Activated 22.6 sec (21.0-31.4); Prothrombin Time 10.2 sec (9.3-11.0)
--- NOTE | 2018-04-25 09:52 | DI.CT_ITS ---
SYMPTOM/DIAGNOSIS: AVM,HEADACHE,VOMITING NONCONTRAST HEAD CT: Comparison is made with 04/02/18. The visualized portions of the brain appear normal. No fracture is identified. The ventricles are unchanged in size and appear normal. IMPRESSION: Large area of artifact related to metallic coils in the right frontal lobe obscure visualization of a large portion of the brain. The visualized portions of the brain appear normal.
[2018-04-25 09:58] LABS: Potassium 2.6 mmol/L (3.5-5.1)
[2018-04-25] MEDS: Potassium Chloride Liquid 20 MEQ PKT PO (10:14)
[2018-04-25] MEDS: POTASSIUM CHLORIDE 20 MEQ/100 ML BAG 50 MEQ IVPB (10:14)
[2018-04-25] MEDS: LORazepam 2 MG/ML VIAL (10:53)
--- NOTE | 2018-04-25 10:57 | NUR.NOTE ---
Nursing Note: Pt had approx 2 min seizure activity. MD Salgado aware in in to assess patient. 0.75 mg ativan IV given
--- NOTE | 2018-04-25 13:11 | NUR.NOTE ---
Nursing Note: Pt resting in bed, no new siezure activity. used urinal with stand by assist. Mother at bedside, updated on plan. will cotinue to monitor.
[2018-04-25 13:16] LABS: VALPROIC ACID < 3 ug/mL (50-100)
[2018-04-25 14:11] LABS: Potassium 2.8 mmol/L (3.5-5.1)
[2018-04-25] MEDS: Ketorolac 15 MG/ML VIAL IVP (14:57)
[2018-04-25] MEDS: Potassium Chloride 10 MEQ TABCR PO (14:57)
--- NOTE | 2018-04-25 15:10 | NUR.NOTE ---
Nursing Note: Medicated with toradol and po K+. mother remains at bedside.
--- NOTE | 2018-04-26 07:35 | PDOC.ERCMPRO ---
Care Management Progress Note 04/26-Dr. Salgado requested assistance with a PCP ([facility]) f/u this /Wednesday for seizure, hypokalemia. Referral faxed to [facility] this am.
== END 2018-04-25 15:50 | disposition home or self-care (01) ==
PROVIDERS: Emergency Provider Emergency Medicine; PCP Family Medicine
DX: G40.89 Other seizures (principal)
CPT/HCPCS: 36415; 80053; 96361; 96365; 96375; 99284; 70450; 80164; 84132; 85025; 85610; 85730; J1885; J1953; J2060; J2405; J3480

== ENCOUNTER 2019-10-20 03:12 | Outpatient (CLI) | payer MEDICARE, MEDICAID, SELFPAY ==
[2019-10-23 08:15] LABS: Lamotrigine 6.2 mcg/mL (2.5 - 15.0)
[2019-10-23 08:22] LABS: Topiramate 12.9 mcg/mL
[2019-10-23 13:24] LABS: Lacosamide 9.3 mcg/mL (1.0 - 10.0)
== END 2019-10-20 03:32 ==
PROVIDERS: PCP Family Medicine; Visit Provider Psychiatry & Neurology Neurology
DX: R56.9 Unspecified convulsions (principal); Z79.899 Other long term (current) drug therapy
CPT/HCPCS: 36415; 80175; 80201; 80339

== ENCOUNTER 2020-06-24 01:11 | Outpatient (CLI) | payer MEDICARE, MEDICAID, SELFPAY ==
--- NOTE | 2020-06-24 | DI.RAD_ITS ---
Exam(s) XR CHEST 2V PA LATERAL EXAM: XR CHEST 2V PA LATERAL CLINICAL HISTORY: COUGH, SMOKER TECHNIQUE: 2D digital imaging was performed. COMPARISON: No exams were available for comparison FINDINGS: MEDIASTINUM: Normal. HEART: Normal. PULMONARY VASCULATURE: Normal. LUNGS: The lungs are hyperinflated consistent with underlying COPD. No focal consolidating infiltrat es are present. PLEURAL SPACE: No pleural effusion or pneumothorax. BONE:Within normal limits for the patient's age. OTHER FINDINGS:Normal. IMPRESSION: 1. Hyperinflation of the lungs suggesting underlying COPD. 2. No acute pulmonary process. DATA REPOSITORY: RADIATION DOSE DELIVERED:
== END 2020-06-24 01:31 ==
PROVIDERS: PCP Family Medicine; Visit Provider Family Medicine
DX: R05 Cough (principal); F17.210 Nicotine dependence, cigarettes, uncomplicated; J44.9 Chronic obstructive pulmonary disease, unspecified
CPT/HCPCS: 71046

== ENCOUNTER 2020-07-07 23:44 | Emergency (ER) | payer MEDICARE, MEDICAID, SELFPAY ==
[2020-07-08] VITALS: BP 112/48; PULSE 63; RESP 16; TEMP 36.7; O2SAT 99
--- NOTE | 2020-07-08 | DI.CT_ITS ---
Exam(s) CT RENAL COLIC WO EXAM: CT RENAL COLIC WO CLINICAL HISTORY: right flank pain. TECHNIQUE: Imaging Protocol: Axial computed tomography images with coronal and sagittal reformatted images were created and reviewed CONTRAST MATERIAL: Intravenous: none Oral: None COMPARISON: No exams were available for comparison FINDINGS: VISUALIZED LUNG BASES: No nodules nor pleural effusions evident. ABDOMEN: There is no ascites. LIVER: There are no obvious focal hepatic lesions evident of this noninfused study. GALLBLADDER/BILIARY: No obvious gallbladder pathology. CBD is not dilated. PANCREAS: No evidence of pancreatic mass nor dilatation of the pancreatic duct. SPLEEN: Spleen is not enlarged. No obvious intrasplenic lesions. ADRENALS: There are no significant adrenal masses. KIDNEYS:There are no calculi in the kidneys but there is a 3-4 millimeter calculus in the right urete r mid level with mild dilatation above this level. No other calculi seen in the kidneys and ureters nor within the nondistended urinary bladder. . ABDOMINAL AORTA: Abdominal aorta is not enlarged. LYMPH NODES: There is no retroperitoneal nor paraaortic adenopathy. ABDOMINAL WALL: No evidence of significant anterior abdominal wall hernia. GI: There is no evidence of bowel obstruction, free air, nor abscess. PELVIS: LYMPH NODES: There is no intrapelvic nor inguinal adenopathy. GI: No evidence of appendicitis.No evidence of sigmoid diverticulitis. URINARY BLADDER: No calculi nor obvious masses evident REPRODUCTIVE: Prostate not enlarged. OSSEOUS: No significant osseous lesions. IMPRESSION: 1. There is a 4 millimeter calculus in the junction of the proximal and mid thirds of the right urete r. There is mild dilatation collecting system above this level. No remaining calculi seen in the ki dneys. No calculi evident the collapsed urinary bladder. RADIATION DOSE DELIVERED: 724.14mGy.cm Total DLP DATA REPOSITORY: All CT scans at this facility are submitted to the National Radiology Data Registry (NRDR) Dose Index Registry (DIR) with the [employer] (A[employer]). RADIATION OPTIMIZATION: All CT scans at this facility use at least one of these dose optimization te chniques: automated exposure control; mA and/or kV adjustment per patient size (includes targeted exa ms where dose is matched to clinical indication); or iterative reconstruction.
--- NOTE | 2020-07-08 00:06 | W.ED.GENAD ---
Discharge Plan Disposition Patient Disposition: HOME Condition: Stable Discharge Details Clinical Impression: Kidney stone on right side Primary Care Provider: Veronika Palmer ED Provider: Maximus Lee Home Meds and New Rx's Prescriptions: New ondansetron 4 mg tablet,disintegrating 4 mg PO Q8H PRN (Reason: nausea and vomiting) Qty: 30 RF: 0 oxycodone 5 mg tablet 5 mg PO TID PRN (Reason: pain) Qty: 7 RF: 0 Continued lamotrigine 200 mg tablet 200 mg PO BID Qty: 180 RF: 3 lamotrigine 100 mg tablet 100 mg PO HS Qty: 90 RF: 3 topiramate [Topamax] 200 mg tablet 200 mg PO BID Qty: 180 RF: 3 Discharge Instructions Instructions: Kidney Stones (ED) Additional Instructions: Drink fluids to stay hydrated you can take 1000mg tylenol and 600mg ibuprofen every 6 hours for pain as needed. If you take the oxycodone do not drink alcohol or drive if you have fevers, persistent vomit or severe uncontrolled pain return to the emergency department you should be contacted with an appointment with urology Medical Decision Making 30 yo male with hx of avm of the brain and seizure disorder comes in with right lower back pain that started about an hour ago. He denies any trauma, falls, heavy lifting or ivdu. No fevers or vomit or abdomen pain. He also noted blood in his urine. No history of kidney stones. He localizes the pain to the right lower lumbar region, no midline pain, no cva tenderness, no warmth or erythema, no cva tenderness, soft non tender abdomen. No saddle anesthesia, normal distal sensation and pulses, normal gait. Suspect kidney stone vs cystitis, will obtain labs and ct renal colic. He is not sure if he could have an std as well as he is sexually active and doesn't use protection, will obtain gc/chalmydia. lab work shows no significant changes from baseline, ua does show blood. CT confims kidney stone. He feels much better and pain is only a 3/10. He feels well enough to go home and would still like to be tested for gc/chlamydia so will be sent home with collection kit. Will refer to urology poly. He was given usual standard return precautions Differential Diagnosis Differential Diagnosis: kidney stone, pyelo Imaging Data Radiologic Study: Attestation: I personally reviewed and interpreted this imaging study as follows: Imaging: CT Scan Radiologist's impression: IMPRESSION: 3 mm obstructing proximal right ureteral calculus. Lab Data Lab results reviewed: Yes I reviewed the patient's lab results. HPI General Mode of arrival: ambulatory. Date/Time Provider Initiated Documentation: 07/07/20 23:48. Limitations to Documentation: no limitations. Information obtained by: patient. History of Present Illness 30 year old M presents to the emergency department with the chief complaint of right lower back pain, described as moderate, with intensity rated at 6. Quality is described as aching, and is localized to the back and right. Patient reports no radiation. Patient started experiencing this hour(s) (1) and it has been constant. No relieving factors improve symptom(s), No exacerbating factors reported . Patient notes other (nausea, no vomit, and also blood in urine). Patient did receive the following treatments prior to arrival, none Related Data Home Medications Medication Instructions Recorded Confirmed lamotrigine 100 mg tablet 100 mg PO HS #90 tab-cap 03/01/18 07/08/20 lamotrigine 200 mg tablet 200 mg PO BID #180 tab-cap 03/01/18 07/08/20 topiramate 200 mg tablet 200 mg PO BID #180 tab-cap 03/01/18 07/08/20 ondansetron 4 mg PO Q8H PRN #30 tab 07/08/20 oxycodone 5 mg PO TID PRN #7 tab 07/08/20 Previous Rx's Medication Instructions Recorded lamotrigine 100 mg tablet 100 mg PO HS #90 tab-cap 03/01/18 lamotrigine 200 mg tablet 200 mg PO BID #180 tab-cap 03/01/18 topiramate 200 mg tablet 200 mg PO BID #180 tab-cap 03/01/18 ondansetron 4 mg PO Q8H PRN #30 tab 07/08/20 oxycodone 5 mg PO TID PRN #7 tab 07/08/20 Allergies Allergy/AdvReac Type Severity Reaction Status Date / Time No Known Allergies Allergy Unverified 07/08/20 00:04 General Stated Complaint: Urinary DWIGHT: 3 Review of Systems All systems reviewed & are unremarkable except as noted in HPI and below Constitutional Constitutional: Denies chills and Denies fever(s) Cardiovascular Cardiovascular: Denies chest pain and Denies dyspnea Respiratory Respiratory: Denies cough and Denies dyspnea Gastrointestinal Gastrointestinal: Denies abdominal pain and Denies vomiting Musculoskeletal Musculoskeletal: Denies joint swelling [facility] Medical History (Updated 07/08/20 @ 00:59 by Maximus Lee MD) AVM (arteriovenous malformation) brain Chronic daily headache (08/13/16) 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 and with status migrainosus (08/13/16) Partial symptomatic epilepsy with complex partial seizures, intractable, with status epilepticus (10/20/16) Social History Smoking/Tobacco Use Status: Current every day Tobacco Type: e-cigarettes Smoking risk assessment performed?: Yes Alcohol Intake: never Drug use: Daily Substance use type: marijuana Do you feel safe at home: Yes Do you feel safe in your relationship?: Yes Exam Const General: no acute distress Orientation: alert HENMT Head: normal to inspection Ears: external ears normal General nose exam: external nose normal Mouth: moist mucous membranes Eyes General: appearance normal, both eyes and all related structures Neck Neck: normal visual inspection Resp Effort & Inspection: normal respiratory effort and able to speak in complete sentences Cardio Rate: regular rate GI Palpation: soft, not rigid and nontender Back/Spine/Pelvis Back: no CVA tenderness Skin General skin exam: no rashes or lesions noted Neuro General: patient alert and patient oriented x3 Extrem General: normal to inspection Psych Mental Status: mental status grossly normal Course Vital Signs Vital signs: Vital Signs Temperature 36.7 C 07/08/20 00:00 Pulse 63 07/08/20 00:00 Respiratory Rate 16 07/08/20 00:00 Blood Pressure 112/48 L 07/08/20 00:00 Pulse Oximetry 99 07/08/20 00:00 Temperature 36.7 C 07/08/20 00:00 Pulse 63 07/08/20 00:00 Respiratory Rate 16 07/08/20 00:00 Blood Pressure 112/48 L 07/08/20 00:00 Pulse Oximetry 99 07/08/20 00:00 Pain Level 6 07/08/20 00:00
[2020-07-08 00:20] LABS: Abs Immature Grans 0.03 10^3/uL (0.0-0.06); Absolute Basophil Count 0.09 10^3/uL (0.0-0.2); Absolute Eosinophil Count 0.31 10^3/uL (0.0-0.7); Absolute Lymphocyte Count 4.19 10^3/uL (1.2-3.4); Absolute Monocyte Count 0.78 10^3/uL (0.1-0.8); Absolute Neutrophil Count 4.41 10^3/uL (1.2-6.7); Basophils % 0.9; Eosinophils % 3.2; HCT 41.6 % (40.0-50.0); HGB 13.8 g/dL (13.5-17.5); Immature Grans % 0.3; Lymphocytes % 42.7; MCH 30.9 pg (27.0-33.0); MCHC 33.2 % (32.0-36.0); MCV 93.3 fL (80-95); MPV 11.2 fL (8.0-11.0); Neutrophils % 44.9; Nucleated RBC 0 %; Platelet Count 238 10^3/uL (130-400); RBC 4.46 10^6/uL (4.36-5.78); RDW 13.2 % (11.8-14.1); RDW-SD 45.3 fL; WBC 9.81 10^3/uL (4.4-10.8)
[2020-07-08] MEDS: Ondansetron 4 MG/2 ML VIAL IVP (00:21)
[2020-07-08] MEDS: Ketorolac 15 MG/ML VIAL IVP (00:21)
[2020-07-08 00:29] LABS: Bilirubin Small (Negative); Blood Large (Negative); Clarity Cloudy (Clear); Glucose Negative (Negative); Ketones 15 mg/dL (Negative); Leukocyte Esterase Negative (Negative); Nitrite Negative (Negative)
[2020-07-08 00:33] LABS: ALT 36 U/L (16-63); AST 17 U/L (15-37); Albumin 3.7 g/dL (3.4-5.0); Alkaline Phosphatase 128 U/L (46-116); Anion Gap 9.1 mmol/L (3-11); BUN 21 mg/dL (7-18); Bilirubin, Total 0.2 mg/dL (0.2-1.0); CO2 23.9 mmol/L (21.0-32.0); CREATININE 1.4 mg/dL (0.70-1.30); Calcium 8.4 mg/dL (8.5-10.1); Chloride 109 mmol/L (98-107); Glucose 118 mg/dL (74-106); Lipase 176 U/L (73-393); Potassium 3.8 mmol/L (3.5-5.1); Sodium 142 mmol/L (136-145); Total Protein 6.5 g/dL (6.4-8.2)
--- NOTE | 2020-07-08 00:48 | DI.VRAD_ITS ---
PROCEDURE INFORMATION: Exam: CT Abdomen And Pelvis Without Contrast Exam date and time: 07/08/2020 12:06 AM Age: 30 years old Clinical indication: Other: RT flank pain TECHNIQUE: Imaging protocol: Computed tomography of the abdomen and pelvis without contrast. COMPARISON: No relevant prior studies available. FINDINGS: Lungs: Lung bases clear. Liver: Upper liver partially excluded from view. Visualized unenhanced liver grossly unremarkable. Gallbladder and bile ducts: Normal appearing gallbladder. No calcified gallstones. No biliary dilatation. Pancreas: Grossly unremarkable unenhanced pancreas. Spleen: Grossly unremarkable unenhanced spleen. Adrenal glands: Normal appearing adrenal glands. Kidneys and ureters: 3 mm proximal right ureteral calculus with upstream ureterectasis and mild hydronephrosis. No additional radiopaque urinary tract stones. No left-sided hydronephrosis. Stomach and bowel: No oral contrast. Stomach moderately distended with ingested material. No small bowel dilatation to suggest obstruction. Moderate retained fecal material in the colon. No evidence of diverticulitis or colitis. Rectum moderately distended with fecal material. Appendix: Appendix partially obscured but normal in caliber and appearance through its visualized portion. Intraperitoneal space: No gross ascites or free air. Vasculature: Normal caliber abdominal aorta. Lymph nodes: No pathologically enlarged mesenteric, retroperitoneal, or pelvic sidewall lymph nodes. Urinary bladder: Urinary bladder partially collapsed but grossly unremarkable, as seen. Reproductive: Normal-appearing prostate gland and seminal vesicles. Bones/joints: No acute fracture seen among the bones of the abdomen or pelvis. Soft tissues: No significant ventral or inguinal hernia. IMPRESSION: 3 mm obstructing proximal right ureteral calculus. Dictated and Authenticated by: Anthony Cline MD. Ordering:JIM Stroud MD
[2020-07-08 00:49] LABS: C & S Indicated? C&S Done As Ordered; RBC >50 HPF (0-2)
[2020-07-08 01:00] VITALS: BP 103/56; PULSE 70; RESP 16; O2SAT 99
[2020-07-09 14:59] LABS: Chlamydia Result Negative (Negative); GC Result Negative (Negative)
== END 2020-07-08 01:10 | disposition home or self-care (01) ==
PROVIDERS: Emergency Provider Emergency Medicine; PCP Family Medicine
DX: N13.2 Hydronephrosis with renal and ureteral calculous obstruction (principal)
CPT/HCPCS: 80053; 83690; 87491; 87591; 96374; 96375; 99284; 74176; 81003; 81015; 85025; 87086; J1885; J2405

== ENCOUNTER 2020-08-01 16:16 | Emergency (ER) | payer MEDICARE, MEDICAID, SELFPAY ==
--- NOTE | 2020-08-01 16:15 | DI.RAD_ITS ---
Exam(s) XR RIBS LT W PA LAT CHEST EXAM: XR RIBS LT W PA LAT CHEST CLINICAL HISTORY: fall with rib pain TECHNIQUE: 2D digital imaging was performed. COMPARISON: No exams were available for comparison FINDINGS: MEDIASTINUM: Normal. HEART: Normal. PULMONARY VASCULATURE: Normal. LUNGS: Clear. PLEURAL SPACE: No pleural effusion or pneumothorax. BONE:Normal. LEFT RIBS: Normal. OTHER FINDINGS:Normal. IMPRESSION: 1. No acute pulmonary findings. 2. Unremarkable left ribs. DATA REPOSITORY: RADIATION DOSE DELIVERED:
[2020-08-01 16:20] VITALS: BP 118/64; PULSE 66; RESP 16; TEMP 36.9; O2SAT 99
--- NOTE | 2020-08-01 16:27 | ED.GENADUL_ITS ---
Discharge Plan Disposition Patient Disposition: HOME Condition: Stable Discharge Details Clinical Impression: Contusion of rib on left side Primary Care Provider: Veronika Palmer ED Provider: Maximus Lee Home Meds and New Rx's Prescriptions: Continued lamotrigine 200 mg tablet 200 mg PO BID Qty: 180 RF: 3 lamotrigine 100 mg tablet 100 mg PO HS Qty: 90 RF: 3 topiramate [Topamax] 200 mg tablet 200 mg PO BID Qty: 180 RF: 3 clonazepam 1 mg tablet 1 mg PO PRN PRNRF: 0 Discharge Instructions Instructions: Rib Contusion (ED) Additional Instructions: your xray did not show any broken bones if pain continues in 1-2 weeks follow up with your primary care provider you can take 1000mg tylenol and 600mg ibuprofen every 6 hours for pain as needed and you can try using lidocaine patches if you feel more ill, have severe worsening pain or new pain such as abdomen pain return to the emergency department Medical Decision Making 30 yo male comes in with left lateral anterior chest pain. He states a week ago he was walking and tripped and landed on his left chest, denies preceding symptoms and was purely mechanical fall. He denies loc. He has had pain only over the left 5th rib in lateral clavicular line on the left side. No anterior chest pain, no abdomen tenderness, clear lungs speaking in full sentences on exam. No bruising of the chest wall but is tender over the 5th rib. No neck tenderness or headache. Suspect rib contusion but will xray to evaluate for possible fx xray unremarkable and he remains stable. He remains stable. Will d/c and advised prn tylenol, ibuprofen and lidocaine patch. Advised follow up with pcp in 1-2 weeks if pain continues and return precautions given Differential Diagnosis Differential Diagnosis: rib contusion, rib fracture Imaging Data Radiologic Study: Attestation: I personally reviewed and interpreted this imaging study as follows: Imaging: X-Ray Radiologist's impression: no acute findings HPI General Mode of arrival: ambulatory . Date/Time Provider Initiated Documentation: 08/01/20 16:19 . Limitations to Documentation: no limitations . Information obtained by: patient . History of Present Illness 30 year old M presents to the emergency department with the chief complaint of left anterior rib pain, described as moderate, Quality is described as aching, Patient reports no radiation. Patient started experiencing this week(s) (1) and it has been constant. No relieving factors improve symptom(s), No exacerbating factors reported . Patient notes no other symptoms.. Patient did receive the following treatments prior to arrival, NSAID Related Data Home Medications Medication Instructions Recorded Confirmed lamotrigine 100 mg tablet 100 mg PO HS #90 tab-cap 03/01/18 08/01/20 lamotrigine 200 mg tablet 200 mg PO BID #180 tab-cap 03/01/18 08/01/20 topiramate 200 mg tablet 200 mg PO BID #180 tab-cap 03/01/18 08/01/20 clonazepam 1 mg PO PRN PRN 08/01/20 08/01/20 Previous Rx's Medication Instructions Recorded lamotrigine 100 mg tablet 100 mg PO HS #90 tab-cap 03/01/18 lamotrigine 200 mg tablet 200 mg PO BID #180 tab-cap 03/01/18 topiramate 200 mg tablet 200 mg PO BID #180 tab-cap 03/01/18 Allergies Allergy/AdvReac Type Severity Reaction Status Date / Time No Known Allergies Allergy Unverified 08/01/20 16:24 General Stated Complaint: Chest/Rib DWIGHT: 4 Review of Systems All systems reviewed & are unremarkable except as noted in HPI and below Constitutional Constitutional: Denies chills, Denies fever(s) and Denies weakness Cardiovascular Cardiovascular: Denies dyspnea Respiratory Respiratory: Denies cough and Denies dyspnea Gastrointestinal Gastrointestinal: Denies abdominal pain, Denies nausea and Denies vomiting Musculoskeletal Musculoskeletal: Denies joint swelling Neurologic Neurologic: Denies weakness [facility] Medical History (Updated 08/01/20 @ 17:57 by Maximus Lee MD) AVM (arteriovenous malformation) brain Chronic daily headache (08/13/16) 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 and with status migrainosus (08/13/16) Partial symptomatic epilepsy with complex partial seizures, intractable, with status epilepticus (10/20/16) Social History Smoking/Tobacco Use Status: Current every day Tobacco Type: e-cigarettes Smoking risk assessment performed?: Yes Alcohol Intake: never Drug use: Daily Substance use type: marijuana Do you feel safe at home: Yes Do you feel safe in your relationship?: Yes Exam Const General: no acute distress Orientation: alert HENMT Head: normal to inspection Ears: external ears normal General nose exam: external nose normal Mouth: moist mucous membranes Eyes General: appearance normal, both eyes and all related structures Neck Neck: normal visual inspection Chest Chest: normal inspection of the chest and tenderness Resp Effort & Inspection: normal respiratory effort and able to speak in complete sentences Cardio Rate: regular rate Skin General skin exam: no rashes or lesions noted Neuro General: patient alert and patient oriented x3 Extrem General: normal to inspection Psych Mental Status: mental status grossly normal Course Vital Signs Vital signs: Vital Signs Temperature 36.9 C 08/01/20 16:20 Pulse 66 08/01/20 16:20 Respiratory Rate 16 08/01/20 16:20 Blood Pressure 118/64 08/01/20 16:20 Pulse Oximetry 999 H 08/01/20 16:20 Temperature 36.9 C 08/01/20 16:20 Temperature Source Temporal Artery Scan 08/01/20 16:20 Pulse 66 08/01/20 16:20 Respiratory Rate 16 08/01/20 16:20 Respiratory Effort 08/01/20 16:22 Blood Pressure 118/64 08/01/20 16:20 Blood Pressure Position Sitting 08/01/20 16:20 Pulse Oximetry 999 H 08/01/20 16:20 Oxygen Delivery Method Room Air 08/01/20 16:20 Oxygen Flow Rate 0 08/01/20 16:20 Pain Level 2 08/01/20 16:20
--- NOTE | 2020-08-01 17:53 | DI.VRAD_ITS ---
PROCEDURE INFORMATION: Exam: XR Left Ribs Exam date and time: 08/01/2020 4:27 PM Age: 30 years old Clinical indication: Injury or trauma; Fall; Blunt trauma (contusions or hematomas); Rib area, left side TECHNIQUE: Imaging protocol: XR Left ribs. Views: 2 views. COMPARISON: CR XR CHEST 2V PA LATERAL 06/24/2020 9:15 AM FINDINGS: Bones/joints: Normal. Soft tissues: Normal. IMPRESSION: No acute findings. PROCEDURE INFORMATION: Exam: XR Chest Exam date and time: 08/01/2020 4:27 PM Age: 30 years old Clinical indication: Injury or trauma; Fall; Blunt trauma (contusions or hematomas); Rib area, left side TECHNIQUE: Imaging protocol: XR of the chest. Views: 2 views. COMPARISON: CR XR CHEST 2V PA LATERAL 06/24/2020 9:15 AM FINDINGS: Lungs: Unremarkable. No consolidation. Pleural spaces: Unremarkable. No pleural effusion. No pneumothorax. Heart/Mediastinum: Unremarkable. No cardiomegaly. Bones/joints: Unremarkable. IMPRESSION: No acute findings. Dictated and Authenticated by: Betty Reyes MD. Ordering:JIM Stroud MD
== END 2020-08-01 18:02 | disposition home or self-care (01) ==
PROVIDERS: Emergency Provider Emergency Medicine; PCP Family Medicine
DX: S20.212A Contusion of left front wall of thorax, initial encounter (principal); W01.0XXA Fall on same level from slipping, tripping and stumbling without subsequent striking against object, initial encounter
CPT/HCPCS: 99283; 71046; 71100

== ENCOUNTER 2020-08-21 15:08 | Outpatient (CLI) | payer MEDICARE, MEDICAID, SELFPAY ==
[2020-08-21 15:30] LABS: Abs Immature Grans 0.03 10^3/uL (0.0-0.06); Absolute Basophil Count 0.07 10^3/uL (0.0-0.2); Absolute Eosinophil Count 0.28 10^3/uL (0.0-0.7); Absolute Lymphocyte Count 2.88 10^3/uL (1.2-3.4); Absolute Monocyte Count 0.74 10^3/uL (0.1-0.8); Absolute Neutrophil Count 4.73 10^3/uL (1.2-6.7); Basophils % 0.8; Eosinophils % 3.2; HCT 44.6 % (40.0-50.0); HGB 15.5 g/dL (13.5-17.5); Immature Grans % 0.3; MCH 31.1 pg (27.0-33.0); MCHC 34.8 % (32.0-36.0); MCV 89.4 fL (80-95); MPV 11.1 fL (8.0-11.0); Monocytes % 8.5; Neutrophils % 54.2; Nucleated RBC 0 %; Platelet Count 246 10^3/uL (130-400); RBC 4.99 10^6/uL (4.36-5.78); RDW 12.3 % (11.8-14.1); RDW-SD 40.3 fL; WBC 8.73 10^3/uL (4.4-10.8)
[2020-08-21 16:41] LABS: TSH 1.12 uIU/mL (0.36-3.74); Vitamin B12 547 pg/mL (193-986)
[2020-08-23 16:41] LABS: Lamotrigine 5.1 mcg/mL (2.5 - 15.0)
[2020-08-24 08:19] LABS: Topiramate 9.2 mcg/mL
[2020-08-24 20:19] LABS: Lacosamide 5.4 mcg/mL (1.0 - 10.0)
== END 2020-08-21 15:09 | disposition home or self-care (01) ==
LOC: LBO 15:10
PROVIDERS: PCP Family Medicine; Visit Provider Psychiatry & Neurology Neurology
DX: R56.9 Unspecified convulsions (principal); Z79.899 Other long term (current) drug therapy; Z51.81 Encounter for therapeutic drug level monitoring
CPT/HCPCS: 36415; 80175; 80201; 80235; 82607; 84443; 85025

== ENCOUNTER 2021-01-09 12:49 | Emergency (ER) | payer MEDICARE, MEDICAID, SELFPAY ==
[2021-01-09 12:54] VITALS: BP 136/73; PULSE 89; RESP 16; TEMP 37.2; O2SAT 98
--- NOTE | 2021-01-09 14:30 | RT.EKG_ITS ---
APPROVED REPORT Exam: Resting ECG Reason for Exam: pre-syncope vs seizure Patient Location: E HR:82 bpm ECG Measurements Heart Rate 82 AXIS MT 141 P 79 QRSd 100 QRS 87 QT 348 T 26 QTc 407 Conclusion Sinus arrhythmia...V-rate 63- 97, variation>10% Probable left atrial enlargement...P >50mS, <-0.10mV V1 ST elev, probable normal early repol pattern...ST elevation, age<55
--- NOTE | 2021-01-09 14:30 | DI.RAD_ITS ---
Exam(s) XR SHOULDER LT COMPLETE 2+V EXAM: XR SHOULDER LT COMPLETE 2+V CLINICAL HISTORY: left shoulder. TECHNIQUE: 2D digital imaging was performed. COMPARISON: No exams were available for comparison FINDINGS: No evidence of fracture or dislocation of glenohumeral joint-humeral head. The main finding is a fra cture of lateral aspect of the ipsilateral clavicle. AC joint is not distracted. Acromion coracoid process is remain unremarkable. IMPRESSION: Lateral clavicle fracture DATA REPOSITORY: RADIATION DOSE DELIVERED:
[2021-01-09 14:49] LABS: Abs Immature Grans 0.03 10^3/uL (0.0-0.06); Absolute Basophil Count 0.07 10^3/uL (0.0-0.2); Absolute Lymphocyte Count 1.57 10^3/uL (1.2-3.4); Absolute Monocyte Count 0.64 10^3/uL (0.1-0.8); Absolute Neutrophil Count 5.68 10^3/uL (1.2-6.7); Basophils % 0.9; Eosinophils % 1.2; HGB 14.5 g/dL (13.5-17.5); Immature Grans % 0.4; Lymphocytes % 19.4; MCH 30.5 pg (27.0-33.0); MCHC 33.7 % (32.0-36.0); MCV 90.5 fL (80-95); MPV 10.9 fL (8.0-11.0); Monocytes % 7.9; Neutrophils % 70.2; Nucleated RBC 0 %; Platelet Count 235 10^3/uL (130-400); RBC 4.75 10^6/uL (4.36-5.78); RDW-SD 43.6 fL; WBC 8.09 10^3/uL (4.4-10.8)
[2021-01-09 15:07] LABS: ALT 39 U/L (16-63); AST 17 U/L (15-37); Albumin 4.2 g/dL (3.4-5.0); Alkaline Phosphatase 130 U/L (46-116); Anion Gap 9.8 mmol/L (3-11); BUN 9 mg/dL (7-18); Bilirubin, Total 0.3 mg/dL (0.2-1.0); CO2 25.2 mmol/L (21.0-32.0); CREATININE 1.2 mg/dL (0.70-1.30); Chloride 109 mmol/L (98-107); Glucose 97 mg/dL (74-106); Potassium 4.1 mmol/L (3.5-5.1); Sodium 144 mmol/L (136-145); Total Protein 7.3 g/dL (6.4-8.2)
[2021-01-09] MEDS: Acetaminophen Solution 650 MG/20.3 ML CUP PO (15:23)
--- NOTE | 2021-01-10 10:25 | ED.GENADUL_ITS ---
Discharge Plan Disposition Patient Disposition: HOME Condition: Stable Discharge Details Clinical Impression: Clavicle fracture, Pre-syncope Primary Care Provider: Veronika Palmer ED Provider: Uzma Pierce Home Meds and New Rx's Prescriptions: Continued lamotrigine 200 mg tablet 200 mg PO BID Qty: 180 RF: 3 lamotrigine 100 mg tablet 100 mg PO HS Qty: 90 RF: 3 topiramate [Topamax] 200 mg tablet 200 mg PO BID Qty: 180 RF: 3 clonazepam 1 mg tablet 1 mg PO PRN PRNRF: 0 Discharge Instructions Instructions: Clavicle Fracture (ED), Near Syncope (ED) Additional Instructions: Recommend following up with your primary care physician for Holter monitor Take oxycodone sparingly, this medication is addictive, do not drive for 8 hours after taking this medication It can also make you constipated Follow-up with the orthopedist listed below Follow-up with your neurologist and your primary care physician Should you have new or worsening complaints, I recommend you return immediately to the emergency room for reassessment Referrals: Veronika Palmer [Primary Care Provider] - Augustine Hogue MD [ [facility] STAFF PHYSICIAN] - Discharge Data Discharge Date/Time-TO BE ENTERED AT DEPARTURE: 01/09/21 16:19 Medical Decision Making Patient placed in a sling Ibuprofen for pain control Orthopedic referral Attempt made to set up Holter monitor, however respiratory unavailable, will follow up with PCP for Holter monitor in the outpatient setting EKG does not show acute abnormality, baseline labs without acute abnormality, orthostatics negative Stable for discharge home in the care of his father, does not operate heavy machinery Low threshold to return should he have new or worsening complaints Discharged home in stable condition with stable vitals, neurologically intact and ambulatory with steady gait HPI General Mode of arrival: ambulatory . Date/Time Provider Initiated Documentation: 01/09/21 14:11 . Limitations to Documentation: no limitations . Information obtained by: patient . HPI Narrative: This 30-year-old gentleman with history of partial complex seizures and migraine headaches presents with report of episodes of weakness. Patient states he said that and his leg gave out, he fell on his left side. Denies head injury or headache. Denies any dizziness. States that he hit his shoulder. Has had pain since that time. The event occurred approximately an hour and a half prior to arrival. He states he has had these episodes for the past few months and is followed up with his neurologist regarding these findings. He denies any loss of consciousness. He denies any aura prior to the episode. He remembers the entirety of the events and the event was witnessed by his father reportedly. He has not used a Holter monitor in the past. He denies any urinary symptoms. He denies any new medications. He is taking topiramate and lamotrigine as prescribed. He was not postictal after the event reportedly. He has not been able to range his left shoulder without pain since the event occurred. He denies any neck pain, palp patient, chest pain, shortness of breath, headache, dizziness, weakness, numbness, tingling, or any additional complaints at this time. Related Data Home Medications Medication Instructions Recorded Confirmed lamotrigine 100 mg tablet 100 mg PO HS #90 tab-cap 03/01/18 01/09/21 lamotrigine 200 mg tablet 200 mg PO BID #180 tab-cap 03/01/18 01/09/21 topiramate 200 mg tablet 200 mg PO BID #180 tab-cap 03/01/18 01/09/21 clonazepam 1 mg PO PRN PRN 08/01/20 01/09/21 Previous Rx's Medication Instructions Recorded lamotrigine 100 mg tablet 100 mg PO HS #90 tab-cap 03/01/18 lamotrigine 200 mg tablet 200 mg PO BID #180 tab-cap 03/01/18 topiramate 200 mg tablet 200 mg PO BID #180 tab-cap 03/01/18 Allergies Allergy/AdvReac Type Severity Reaction Status Date / Time No Known Allergies Allergy Unverified 01/09/21 13:00 General Stated Complaint: Orthopedic DWIGHT: 4 Review of Systems All systems reviewed & are unremarkable except as noted in HPI and below [facility] Active Problem List (Updated 01/09/21 @ 16:15 by TAYLER Foley) Kidney stone on right side (Acute) Contusion of rib on left side (Acute) Clavicle fracture (Acute) Pre-syncope (Acute) Partial symptomatic epilepsy with complex partial seizures, intractable, with status epilepticus (Acute 10/20/16) 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 and with status migrainosus (Acute 08/13/16) Chronic daily headache (Acute 08/13/16) AVM (arteriovenous malformation) brain (Acute) Social History Smoking/Tobacco Use Status: Current every day Tobacco Type: e-cigarettes Smoking risk assessment performed?: Yes Alcohol Intake: never Drug use: Daily Substance use type: marijuana Do you feel safe at home: Yes Do you feel safe in your relationship?: Yes Exam Const General: cooperative HENMT Other: No visible evidence of trauma Eyes Pupils: PERRL Neck Other: No midline tenderness, no paraspinal tenderness Chest Chest: normal inspection of the chest Resp Effort & Inspection: normal respiratory effort Auscultation: clear to auscultation bilaterally Cardio Rate: regular rate Rhythm: regular rhythm GI Other: No abdominal tenderness, no CVA tenderness, no abdominal bruit or pulsatile mass Back/Spine/Pelvis Other: No thoracic or lumbar tenderness Skin General skin exam: no rashes or lesions noted Neuro General: patient alert and patient oriented x3 Cranial Nerves: CN's II-XI intact bilaterally Speech: speech normal Gait: normal gait Motor: strength 5/5 throughout Sensory Exam: no sensory deficits noted Extrem General: normal to inspection and full ROM Left upper extremity: normal capillary refill Shoulder/upper arm images: 1. Tenderness with palpation, no crepitus, no obvious deformity Psych Appearance: grossly normal and well kempt Course Vital Signs Vital signs: Vital Signs Temperature 37.2 C 01/09/21 12:54 Pulse 89 01/09/21 12:54 Respiratory Rate 16 01/09/21 12:54 Blood Pressure 136/73 01/09/21 12:54 Pulse Oximetry 98 01/09/21 12:54 Temperature 37.2 C 01/09/21 12:54 Temperature Source Skin 01/09/21 12:54 Pulse 89 01/09/21 12:54 Respiratory Rate 16 01/09/21 12:54 Respiratory Effort 01/09/21 12:59 Blood Pressure 136/73 01/09/21 12:54 Blood Pressure Position Sitting 01/09/21 12:54 Pulse Oximetry 98 01/09/21 12:54 Oxygen Delivery Method Room Air 01/09/21 12:54 Oxygen Flow Rate 0 01/09/21 12:54 Pain Level 8 01/09/21 15:23 Lab/Test Results Lab/Test Results: Laboratory Tests Range/Units 01/09/21 01/09/21 14:40 14:40 WBC (4.4-10.8) 10^3/uL 8.09 RBC (4.36-5.78) 10^6/uL 4.75 Hgb (13.5-17.5) g/dL 14.5 Hct (40.0-50.0) % 43.0 MCV (80-95) fL 90.5 MCH (27.0-33.0) pg 30.5 MCHC (32.0-36.0) % 33.7 RDW (11.8-14.1) % 13.0 Plt Count (130-400) 10^3/uL 235 MPV (8.0-11.0) fL 10.9 Immature Gran % 0.4 Neutrophils % 70.2 Lymphocytes % 19.4 Monocytes % 7.9 Eosinophils % 1.2 Basophils % 0.9 Nucleated RBC % % 0 Absolute Neutrophils (1.2-6.7) 10^3/uL 5.68 Absolute Lymphocytes (1.2-3.4) 10^3/uL 1.57 Absolute Monocytes (0.1-0.8) 10^3/uL 0.64 Absolute Eosinophils (0.0-0.7) 10^3/uL 0.10 Absolute Basophils (0.0-0.2) 10^3/uL 0.07 Sodium (136-145) mmol/L 144 Potassium (3.5-5.1) mmol/L 4.1 Chloride (98-107) mmol/L 109 H Carbon Dioxide (21.0-32.0) mmol/L 25.2 Anion Gap (3-11) mmol/L 9.8 BUN (7-18) mg/dL 9 Creatinine (0.70-1.30) mg/dL 1.2 Estimated GFR/1.73 m2 (mL/min/1.73m2) >= 60.00 Glucose (74-106) mg/dL 97 Calcium (8.5-10.1) mg/dL 9.0 Total Bilirubin (0.2-1.0) mg/dL 0.3 AST (15-37) U/L 17 ALT (16-63) U/L 39 Alkaline Phosphatase (46-116) U/L 130 H Total Protein (6.4-8.2) g/dL 7.3 Albumin (3.4-5.0) g/dL 4.2
== END 2021-01-09 16:19 | disposition home or self-care (01) ==
PROVIDERS: Emergency Provider Physician Assistant; PCP Family Medicine
DX: S42.032A Displaced fracture of lateral end of left clavicle, initial encounter for closed fracture (principal); W18.39XA Other fall on same level, initial encounter; R55 Syncope and collapse
CPT/HCPCS: 80053; 93005; 99284; 73030; 85025; 93010; 99283

== ENCOUNTER 2021-01-15 09:27 | Outpatient (CLI) | payer MEDICARE, MEDICAID, SELFPAY ==
--- NOTE | 2021-01-15 09:00 | DI.RAD_ITS ---
Exam(s) XR CLAVICLE LT EXAM: XR CLAVICLE LT CLINICAL HISTORY: clavicle fx TECHNIQUE: COMPARISON: CR XR SHOULDER LT COMPLETE 2+V from 01/09/2021 FINDINGS: Single view of the shoulder was obtained. Previous described fracture of the distal clavicle is agai n noted, no gross interval change in alignment of the fracture fragments comparison with examination of January 09. IMPRESSION: RADIATION DOSE DELIVERED: Total DLP
== END 2021-01-15 09:28 | disposition home or self-care (01) ==
LOC: DIORS 09:27
PROVIDERS: PCP Family Medicine; Referring Provider Student in an Organized Health Care Education/Training Program; Visit Provider Student in an Organized Health Care Education/Training Program
DX: S42.035A Nondisplaced fracture of lateral end of left clavicle, initial encounter for closed fracture; X58.XXXA Exposure to other specified factors, initial encounter
CPT/HCPCS: 99203; 99213; 73000

== ENCOUNTER 2021-01-22 11:49 | Outpatient (CLI) | payer MEDICARE, MEDICAID, SELFPAY ==
--- NOTE | 2021-01-22 11:00 | DI.RAD_ITS ---
Exam(s) XR CLAVICLE LT EXAM: XR CLAVICLE LT CLINICAL HISTORY: left clavicle fx f/u TECHNIQUE: 2D digital imaging was performed of the left clavicle. Two images were obtained. AP and axial views were obtained. COMPARISON: CR XR CLAVICLE LT from 01/15/2021 FINDINGS: BONES: There has been no change in alignment of the distal left clavicular fracture. No new fracture is identified. No bony destructive lesion is seen. JOINTS: No dislocation present. SOFT TISSUE: Normal. IMPRESSION: Stable left clavicular fracture. DATA REPOSITORY: RADIATION DOSE DELIVERED:
== END 2021-01-22 11:50 | disposition home or self-care (01) ==
LOC: DIORS 11:50
PROVIDERS: PCP Family Medicine; Referring Provider Family Medicine; Visit Provider Student in an Organized Health Care Education/Training Program
DX: S42.035D Nondisplaced fracture of lateral end of left clavicle, subsequent encounter for fracture with routine healing; X58.XXXD Exposure to other specified factors, subsequent encounter
CPT/HCPCS: 99213; 73000

== ENCOUNTER 2021-02-20 03:15 | Outpatient (CLI) | payer MEDICARE, MEDICAID, SELFPAY ==
[2021-02-22 15:21] LABS: Lamotrigine 6.6 mcg/mL (2.5 - 15.0)
[2021-02-23 08:50] LABS: Lacosamide 8.8 mcg/mL (1.0 - 10.0)
[2021-02-24 03:37] LABS: Topiramate 10.2 mcg/mL
== END 2021-02-20 03:16 | disposition home or self-care (01) ==
LOC: LBO 03:15
PROVIDERS: PCP Family Medicine; Visit Provider Psychiatry & Neurology Neurology
DX: G40.211 Localization-related (focal) (partial) symptomatic epilepsy and epileptic syndromes with complex partial seizures, intractable, with status epilepticus (principal)
CPT/HCPCS: 36415; 80175; 80201; 80235

== ENCOUNTER 2021-03-05 10:33 | Outpatient (CLI) | payer MEDICARE, MEDICAID, SELFPAY ==
--- NOTE | 2021-03-05 09:45 | DI.RAD_ITS ---
Exam(s) XR CLAVICLE LT EXAM: XR CLAVICLE LT CLINICAL HISTORY: Left clavicle fx f/u. TECHNIQUE: 2D digital imaging was performed. COMPARISON: CR XR CLAVICLE LT from 01/22/2021 FINDINGS: There has been some callus formation at the fracture site in the lateral aspect of the left clavicle. No further displacement. AC joint is not distracted. IMPRESSION: DATA REPOSITORY: RADIATION DOSE DELIVERED:
== END 2021-03-05 10:34 | disposition home or self-care (01) ==
LOC: DIORS 10:34
PROVIDERS: PCP Family Medicine; Referring Provider Family Medicine; Visit Provider Student in an Organized Health Care Education/Training Program
DX: S42.035A Nondisplaced fracture of lateral end of left clavicle, initial encounter for closed fracture (principal); X58.XXXA Exposure to other specified factors, initial encounter
CPT/HCPCS: 99213; 73000

== ENCOUNTER 2021-05-07 09:56 | Outpatient (CLI) | payer MEDICARE, MEDICAID, SELFPAY ==
--- NOTE | 2021-05-07 10:15 | DI.RAD_ITS ---
Exam(s) XR CLAVICLE LT EXAM: XR CLAVICLE LT CLINICAL HISTORY: Clavicle fx f/u. TECHNIQUE: 2D digital imaging was performed. COMPARISON: CR XR CLAVICLE LT from 03/05/2021 FINDINGS: Two views of the left clavicle compared to 03/05/2021. Again noted is the fracture site in the lateral aspect of the left clavicle. Appearance similar to t he prior study. AC joint is not distracted. No new fractures identified. IMPRESSION: DATA REPOSITORY: RADIATION DOSE DELIVERED:
== END 2021-05-07 09:57 | disposition home or self-care (01) ==
LOC: DIORT 10:27 → DIORS 10:44
PROVIDERS: PCP Family Medicine; Referring Provider Family Medicine; Visit Provider Student in an Organized Health Care Education/Training Program
DX: S42.035D Nondisplaced fracture of lateral end of left clavicle, subsequent encounter for fracture with routine healing (principal); W18.39XD Other fall on same level, subsequent encounter
CPT/HCPCS: 99213; 73000

== ENCOUNTER 2021-07-09 14:05 | Outpatient (CLI) | payer MEDICARE, MEDICAID, SELFPAY ==
--- NOTE | 2021-07-09 13:00 | DI.RAD_ITS ---
Exam(s) XR CLAVICLE LT EXAM: XR CLAVICLE LT CLINICAL HISTORY: left clavicle fx f/u. TECHNIQUE: 2D digital imaging was performed. COMPARISON: CR XR CLAVICLE LT from 05/07/2021 FINDINGS: TWO VIEWS: Appearance of the impacted fracture site in the lateral of the left clavicle is unchanged from 2021. AC joint is not distracted. No osseous lesions. IMPRESSION: DATA REPOSITORY: RADIATION DOSE DELIVERED:
== END 2021-07-09 14:06 | disposition home or self-care (01) ==
LOC: DIORS 14:06
PROVIDERS: PCP Family Medicine; Referring Provider Family Medicine; Visit Provider Student in an Organized Health Care Education/Training Program
DX: S42.035A Nondisplaced fracture of lateral end of left clavicle, initial encounter for closed fracture; X58.XXXA Exposure to other specified factors, initial encounter
CPT/HCPCS: 99213; 73000

== ENCOUNTER 2021-07-22 18:31 | Outpatient (REF) | payer MEDICARE, MEDICAID, SELFPAY ==
[2021-07-23 15:00] LABS: COVID-19 RT-PCR UVMMC Result Negative (Negative)
== END 2021-07-22 18:32 | disposition home or self-care (01) ==
LOC: LBN 18:31
PROVIDERS: PCP Family Medicine; Visit Provider Nurse Practitioner Family
DX: Z20.822 Contact with and (suspected) exposure to COVID-19 (principal); R05.8 Other specified cough
CPT/HCPCS: U0003; U0005

== ENCOUNTER 2021-10-27 10:46 | Emergency (ER) | payer MEDICARE, MEDICAID, SELFPAY ==
[2021-10-27] VITALS (33 sets, daily range): BP systolic 95–127; BP diastolic 34–83; PULSE 74–107; RESP 0–26; TEMP 36.6; O2SAT 95–99
--- NOTE | 2021-10-27 10:54 | ED.GENADUL_ITS ---
Discharge Plan Disposition Patient Disposition: HOME Condition: Improving Discharge Details Clinical Impression: Breakthrough seizure, COVID-19 Primary Care Provider: Veronika Palmer ED Provider: Tesfaye Salgado Home Meds and New Rx's Prescriptions: New clonazepam 2 mg tablet 2 mg PO TID 5 Days Qty: 15 0RF Continued topiramate [Topamax] 200 mg tablet 200 mg PO BID Qty: 180 3RF lacosamide [Vimpat] 200 mg tablet 250 mg PO BID clonazepam 1 mg tablet 2 mg PO PRN PRN Label Comments: TAKE 1 TABLET BY MOUTH TWICE DAILY hydroxyzine pamoate 25 mg capsule 1 cap PO BID PRN Label Comments: TAKE 1 CAPSULE BY MOUTH TWICE DAILY NEEDED FOR HEADACHE lamotrigine 200 mg tablet 200 mg PO BID 7 Days Qty: 14 0RF Rx Instructions: 200mg BID along with 100mg HS Changed lamotrigine 100 mg tablet 100 mg PO BID 7 Days Qty: 14 0RF Rx Instructions: 100mg HS along with 200mg BID Discontinued clobazam 10 mg tablet 1 tab PO BID Label Comments: TAKE 1 TABLET BY MOUTH TWICE DAILY Discharge Instructions Instructions: Recurrent Seizures in Adults (ED), COVID-19 (Coronavirus Disease 2019) (ED) Additional Instructions: As we discussed, your neurology team at [facility] recommended that you restart the clobazam, but if you felt you were unwilling to do so that you may increase clonazepam to 3 times a day until you are able to talk to Dr Young. Please call the neurology office on Wednesday to speak with Dr Young. Your COVID test was positive today. Continue to self isolate and mask while around others. Small, frequent sips of fluids to maintain hydration. Tylenol if needed for aches, pains or fever. Resume all routine medications Discharge Data Discharge Date/Time-TO BE ENTERED AT DEPARTURE: 10/27/21 16:10 Medical Decision Making 31-year-old male presents via EMS. He had a witnessed approximately 2-minute generalized seizure at home, after EMS arrived patient had a second generalized seizure, IV access established he was given 10 mg of Versed. He has been exposed to COVID in his home, as his has been ill. By report the patient had had negative testing at home and no symptoms. He arrives postictal and confused. He is given additional benzodiazepine. Placed on a potline monitor. Screening labs obtained, recent records reviewed including follow-up with neurology in September. Laboratories note a white count of 12, hematocrit 45, platelets 239. Sodium 140, potassium 4.1, chloride 106, bicarb 15, BUN 14, creatinine 1.5. Unremarkable LFTs. Urinalysis notes mixed cells, a specific gravity of 1.02. Positive for benzodiazepines and THC. COVID PCR is positive CT scan of the head: No definitive acute intracranial abnormality. Artifact noted from known arteriovenous malformation. After approximately 2-1/2 hours in the emergency department, patient is now alert, awake and oriented with no focal neurologic deficits. He states he has not had a fever or cough but that his has been sick with COVID. He was recently prescribed Clobazam by Dr. Young at [facility]. He states he took this for approximately 1 week and stopped it on his own due to intolerable side effects. Case discussed with on-call neurology and we reviewed the patient's recent and past medical records. Recommendation was for him to restart clobazam, which he states he is unwilling to do. Our backup plan is for the patient to increase his clonazepam to 3 times a day until he can be seen or discussed with his [facility] neurologist Dr. Young this week. Patient improved, mentating normally. He is appropriate for discharge. Patient was out of his Lamictal and clonazepam and was dispensed medications for today with bridging prescriptions. His stated to me that the patient has been off of most of his medications for at least a couple weeks stating that he needed a mental break. I feel this is most likely the etiology of his breakthrough seizure today. He will follow-up with neurology. HPI General Mode of arrival: ambulatory . Date/Time Provider Initiated Documentation: 10/27/21 10:51 . Limitations to Documentation: no limitations . Information obtained by: patient . History of Present Illness 31 year old M presents to the emergency department with the chief complaint of Seizure x2, described as moderate, Patient started experiencing this minute(s) and it has been now resolved. No relieving factors improve symptom(s), No exacerbating factors reported . Patient did receive the following treatments prior to arrival, other (MRSA Versed 10 mg by EMS) Related Data Home Medications Medication Instructions Recorded Confirmed topiramate 200 mg tablet (Topamax) 200 mg PO BID #180 tab-caps 03/01/18 10/27/21 clonazepam 1 mg tablet 2 mg PO PRN PRN 08/01/20 10/27/21 lacosamide 200 mg tablet (Vimpat) 250 mg PO BID 05/07/21 10/27/21 clonazepam 2 mg tablet 2 mg PO TID 5 days #15 tabs 10/27/21 hydroxyzine pamoate 25 mg capsule 1 cap PO BID PRN 10/27/21 10/27/21 lamotrigine 100 mg tablet 100 mg PO BID 7 days #14 tabs 10/27/21 lamotrigine 200 mg tablet 200 mg PO BID 7 days #14 tab-caps 10/27/21 Previous Rx's Medication Instructions Recorded topiramate 200 mg tablet (Topamax) 200 mg PO BID #180 tab-caps 03/01/18 clonazepam 2 mg tablet 2 mg PO TID 5 days #15 tabs 10/27/21 lamotrigine 100 mg tablet 100 mg PO BID 7 days #14 tabs 10/27/21 lamotrigine 200 mg tablet 200 mg PO BID 7 days #14 tab-caps 10/27/21 Allergies Allergy/AdvReac Type Severity Reaction Status Date / Time No Known Allergies Allergy Unverified 10/27/21 11:54 General DWIGHT: 4 Review of Systems Unobtainable due to mental status PFSH All Active Problems (Updated 10/27/21 @ 13:16 by Tesfaye Salgado MD) Breakthrough seizure (Acute) COVID-19 (Acute) Closed fracture of distal clavicle (Acute 01/09/21) Kidney stone on right side (Acute) Contusion of rib on left side (Acute) Clavicle fracture (Acute) Pre-syncope (Acute) Partial symptomatic epilepsy with complex partial seizures, intractable, with status epilepticus (Acute 10/20/16) 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 and with status migrainosus (Acute 08/13/16) Chronic daily headache (Acute 08/13/16) AVM (arteriovenous malformation) brain (Acute) Social History Smoking/Tobacco Use Status: Current every day Tobacco Type: e-cigarettes Smoking risk assessment performed?: Yes Alcohol Intake: never Drug use: Daily Substance use type: marijuana Current gender identity: male Do you feel safe at home: Yes Do you feel safe in your relationship?: Yes Exam Narrative Exam Narrative: GEN: Confused HEAD: Normocephalic, atraumatic ENT: Mucous membranes moist, oropharynx unremarkable, External ear exam unremarkable EYES: PERRL, EOMI NECK: Full ROM, no PARAG, no menigismus CHEST/RESP: Nontender, clear to auscultation bilateral, no wheeze/rhonchi/rales CARDIOVASCULAR: RRR, no murmur, rub kd. 2+ Rad pulse bilateral ABDOMEN: Soft, nontender, no mass. +Bowel sounds EXT: Full ROM, no edema, no rash Neuro: Patient appears confused. Opens his eyes spontaneously, moves all 4 extremities.
--- NOTE | 2021-10-27 11:00 | DI.CT_ITS ---
Exam(s) CT HEAD WO EXAM: CT HEAD WO CLINICAL HISTORY: seizure, hx same. TECHNIQUE: Imaging Protocol: Axial computed tomography images with coronal and sagittal reformatted images were created and reviewed COMPARISON: CT CT brain neck CTA from 04/02/[address] HEAD WO from 04/25/2018 FINDINGS: There again noted to be ext extensive metallic coils in the inferior right frontal region which creat es severe artifact. This obscures visualization of large portions of the brain. The visualized port ions of the brain appear normal. The ventricles are normal in size. prominent veins are again noted anterior and superior to the region of the coiling in the anteromedial right frontal region. Promin ent veins are also seen along the lateral right frontal sulci.. There is no evidence of skull fractu re. No acute hemorrhage is visible. IMPRESSION: Extent of artifact related to metallic coils in the right frontal region. No gross evidence of an ac jeannette intracranial process. RADIATION DOSE DELIVERED: 860.97mGy.cm Total DLP DATA REPOSITORY: All CT scans at this facility are submitted to the National Radiology Data Registry (NRDR) Dose Index Registry (DIR) with the [employer] (A[employer]). RADIATION OPTIMIZATION: All CT scans at this facility use at least one of these dose optimization te chniques: automated exposure control; mA and/or kV adjustment per patient size (includes targeted exa ms where dose is matched to clinical indication); or iterative reconstruction.
[2021-10-27] MEDS: LORazepam 20 MG/10 ML VIAL IVP ×2 (11:12→11:23)
[2021-10-27 11:33] LABS: Bilirubin Negative (Negative); Blood Moderate (Negative); Clarity Clear (Clear); Glucose 250 mg/dL (Negative); Ketones Negative (Negative); Leukocyte Esterase Negative (Negative); Nitrite Negative (Negative); Specific Gravity 1.025 (1.005-1.025); Urobilinogen 0.2 EU/dL (Up TO 0.2); pH 5.5 (5-8)
[2021-10-27] MEDS: Normal Saline 1,000 ML 1000 ML IV (11:36)
[2021-10-27] MEDS: ACETAMINOPHEN 1,000 MG/100 ML BTL 400 MG IVPB (11:36)
[2021-10-27 11:41] LABS: Source Nasal/Nares
[2021-10-27 11:44] LABS: Bacteria Negative HPF (Negative); C & S Indicated? No; Casts Negative LPF (Negative); Crystals Negative HPF (Negative); Epithelial Cells Few HPF (Negative); Mucus Negative (Negative); WBC 0-2 HPF (0-5)
[2021-10-27 11:44] LABS: Abs Immature Grans 0.42 10^3/uL (0.0-0.06); Absolute Basophil Count 0.07 10^3/uL (0.0-0.2); Absolute Eosinophil Count 0.24 10^3/uL (0.0-0.7); Absolute Lymphocyte Count 1.02 10^3/uL (1.2-3.4); Absolute Monocyte Count 0.25 10^3/uL (0.1-0.8); Basophils % 0.6; Eosinophils % 1.9; HCT 45.1 % (40.0-50.0); HGB 14.8 g/dL (13.5-17.5); Immature Grans % 3.4; Lymphocytes % 8.2; MCH 30.5 pg (27.0-33.0); MCHC 32.8 % (32.0-36.0); MCV 93 fL (80-95); MPV 11.6 fL (8.0-11.0); Neutrophils % 83.9; Platelet Count 239 10^3/uL (130-400); RBC 4.86 10^6/uL (4.36-5.78); RDW 13.5 % (11.8-14.1); RDW-SD 46.2 fL; WBC 12.48 10^3/uL (4.4-10.8)
[2021-10-27 11:45] LABS: Absolute Neutrophil Count 10.47 10^3/uL (1.2-6.7)
[2021-10-27 11:46] LABS: *AMPHETAMINES SCREEN URINE Negative (Negative); *BARBITURATES SCREEN URINE Negative (Negative); *BENZODIAZEPINES SCREEN URINE Positive (Negative); Cannabinoids THC Positive (Negative); Cocaine Screen,Urine Negative (Negative); METHADONE URINE SCREEN Negative (Negative); OPIATES URINE SCREEN Negative (Negative)
[2021-10-27 11:50] LABS: Tricyclic Antidepressants Negative (Negative)
[2021-10-27 11:59] LABS: ALT 56 U/L (16-63); AST 31 U/L (15-37); Albumin 4.2 g/dL (3.4-5.0); Alkaline Phosphatase 124 U/L (46-116); Anion Gap 18.2 mmol/L (3-11); BUN 14 mg/dL (7-18); Bilirubin, Total 0.2 mg/dL (0.2-1.0); CO2 15.8 mmol/L (21.0-32.0); CREATININE 1.5 mg/dL (0.70-1.30); Calcium 8.8 mg/dL (8.5-10.1); Chloride 106 mmol/L (98-107); Estimated GFR 63.44 (mL/min/1.73m2); Glucose 243 mg/dL (74-106); Potassium 4.1 mmol/L (3.5-5.1); Sodium 140 mmol/L (136-145); Total Protein 7.5 g/dL (6.4-8.2)
[2021-10-27 12:02] LABS: ETHANOL BLOOD < 3.0 mg/dL (<10)
--- NOTE | 2021-10-27 12:52 | DI.VRAD_ITS ---
PROCEDURE INFORMATION: Exam: CT Head Without Contrast Exam date and time: 10/27/2021 12:27 PM Age: 31 years old Clinical indication: Prior surgery; Surgery type: Unknown SX date, patient unable to answer questions. Patient HX: HX of avm, and seizures. No other HX paient unable to answer questions. TECHNIQUE: Imaging protocol: Computed tomography of the head without contrast. Radiation optimization: All CT scans at this facility use at least one of these dose optimization techniques: automated exposure control; mA and/or kV adjustment per patient size (includes targeted exams where dose is matched to clinical indication); or iterative reconstruction. COMPARISON: CT HEAD WO 04/25/2018 9:49 AM FINDINGS: Brain: There is large coil mass in region of right cribriform plate and frontal lobe creating significant artifact. No definite acute intracranial hemorrhage. No definite acute loss of soto-white differentiation. Cerebral ventricles: No ventriculomegaly. Paranasal sinuses: There is mild mucosal thick in paranasal sinuses and small right maxillary sinus retention cysts or polyps. Mastoid air cells: No significant mastoid effusion. Bones/joints: No acute fracture. Soft tissues: Unremarkable as visualized. Vasculature: Again seen are prominent vessels along the anterolateral right frontal lobe related to prominent draining veins associated with treated arteriovenous malformation. IMPRESSION: Significant artifact related to treated right frontal arteriovenous malformation. No definite acute intracranial abnormality. Dictated and Authenticated by: Tiffany Starks MD. Ordering:CHARAN Carlin MD
[2021-10-27 13:00] LABS: COVID-19 PCR Positive (Negative)
[2021-10-27] MEDS: MORPHine 10 MG/ML VIAL 2 MG IVP (14:53)
[2021-10-27] MEDS: Ketorolac 15 MG/ML VIAL IVP (14:53)
[2021-10-27] MEDS: clonazePAM 1 MG TAB 6 MG PO (15:35)
[2021-10-27] MEDS: lamoTRIgine 100 MG TAB 600 MG PO (16:01)
== END 2021-10-27 16:10 | disposition home or self-care (01) ==
PROVIDERS: Emergency Provider Emergency Medicine; PCP Family Medicine
DX: U07.1 COVID-19 (principal); R56.9 Unspecified convulsions; F17.290 Nicotine dependence, other tobacco product, uncomplicated
CPT/HCPCS: 80053; 80307; 87635; 96361; 96374; 96375; 99284; 70450; 80320; 81003; 81015; 85025; J0131; J1885; J2270; J3490

== ENCOUNTER 2021-12-28 16:20 | Observation (INO) | payer MEDICARE, MEDICAID, SELFPAY ==
[2021-12-28] VITALS (60 sets, daily range): BP systolic 113–168; BP diastolic 55–143; PULSE 71–108; RESP 8–25; TEMP 36.6; O2SAT 93–99
--- NOTE | 2021-12-28 16:45 | DI.CT_ITS ---
Exam(s) CT HEAD WO EXAM: CT HEAD WO CLINICAL HISTORY: known avm, [place], seizure. TECHNIQUE: Imaging Protocol: Axial computed tomography images with coronal and sagittal reformatted images were created and reviewed COMPARISON: CT CT HEAD WO from 10/27/2021 FINDINGS: There are no skull fractures. There is no fluid in the visualized paranasal sinuses. Again noted is extensive artifact in the brain related to the abundance of interventional coil materi al in the right frontal region, similar to previous. No there is a brain which are not obscured by t his artifact reveal no evidence of obvious acute intracranial hemorrhage, intra or extra-axial. No v entriculomegaly. No shift of midline structures. IMPRESSION: No obvious acute intracranial findings on this noninfused CT scan of the brain. There is abundant artifact again noted from the status post embolization of large right frontal AVM. RADIATION DOSE DELIVERED: 1,110.93mGy.cm Total DLP DATA REPOSITORY: All CT scans at this facility are submitted to the National Radiology Data Registry (NRDR) Dose Index Registry (DIR) with the [employer] (ACR). RADIATION OPTIMIZATION: All CT scans at this facility use at least one of these dose optimization te chniques: automated exposure control; mA and/or kV adjustment per patient size (includes targeted exa ms where dose is matched to clinical indication); or iterative reconstruction.
--- NOTE | 2021-12-28 17:07 | ED.GENADUL_ITS ---
Discharge Plan Disposition Patient Disposition: STILL A PATIENT Condition: Serious Discharge Details Chief Complaint: Seizure Clinical Impression: AVM (arteriovenous malformation), Generalized tonic-clonic seizure Primary Care Provider: Veronika Palmer ED Provider: Cameron Staples Home Meds and New Rx's Prescriptions: No Action topiramate [Topamax] 200 mg tablet 200 mg PO BID Qty: 180 3RF lacosamide [Vimpat] 200 mg tablet 250 mg PO BID clonazepam 1 mg tablet 2 mg PO PRN PRN Label Comments: TAKE 1 TABLET BY MOUTH TWICE DAILY hydroxyzine pamoate 25 mg capsule 1 cap PO BID PRN Label Comments: TAKE 1 CAPSULE BY MOUTH TWICE DAILY NEEDED FOR HEADACHE lamotrigine 200 mg tablet 200 mg PO BID 7 Days Qty: 14 0RF Rx Instructions: 200mg BID along with 100mg HS lamotrigine 100 mg tablet 100 mg PO BID 7 Days Qty: 14 0RF Rx Instructions: 100mg HS along with 200mg BID lacosamide 100 mg tablet 50 tab BID Medical Decision Making 1710??31-year-old male with history of epilepsy, large intracranial AVM, fol lowed [place] [facility], compliant with antiepileptics, here after generalized tonic-clonic seizure that lasted 2 minutes just prior to arrival and also a generalized seizure earlier today. Patient now with headache. Patient is scheduled to follow-up with neurosurgery and there is plan for CTA of the brain in about a week. Will obtain CTA imaging today to assess AVM. I will send antiepileptic levels. 1744 --patient experienced generalized tonic-clonic seizure that lasted approximately [address] scanner. Noncontrast head CT was obtained, CTA was not obtained. Patient was given Ativan 1 mg IV for seizure. Patient now responding. --Patient responding well, noting worst headache. Acetaminophen IV and Dilaudid 0.5 mg IV ordered. 1755 --I called [facility] to request transfer. Awaiting callback. 1899 --I spoke with transfer center who notes neurosurgery is requesting CTA. I then spoke with neurologist on-call, Dr. Robbins, discussed ED presentation and course, he reviewed prior medical record, he recommends increasing clonazepam to 1 mg twice daily and potentially loading with Depakote if patient has tolerated this before. He recommends discussing case with neurosurgery after CTA imaging. CT of the head was interpreted by radiology: No acute intracranial hemorrhage. Status postembolization of large right frontal AVM. Findings are similar in appearance to the previous examination. 2004 --I spoke with on-call neurosurgeon at [facility], she reviewed CTA of the brain and feels okay should be discussed with neurosurgery at [facility] [place]. She notes [facility] [place] on diversion for neurosurgery. She is not sure if emergent or urgent follow-up for DSA appropriate. 2010 --I spoke with [facility] transfer center and requested consultation with neurosurgeon on-call. Images to be sent for review. HPI General Mode of arrival: ambulatory . Date/Time Provider Initiated Documentation: 12/28/21 16:25 . Limitations to Documentation: no limitations . Information obtained by: patient . HPI Narrative: 31-year-old male with history of intracranial AVM and associated epilepsy, here after seizure today. Patient notes he remembers having a seizure earlier today, this morning that was generalized. He is unsure how long the seizure lasted. He then had a witnessed generalized tonic-clonic seizure this afternoon. Seizure lasted 2 minutes. Patient is on antiepileptic medication which he is taking. He has not missed any doses. He notes his neurologist is slowly weaning his dosing. Patient does have associated headache which he notes he typically has with procedures. Headache is localized to right frontal. No associated fever or neck stiffness. Related Data Home Medications Medication Instructions Recorded Confirmed topiramate 200 mg tablet (Topamax) 200 mg PO BID #180 tab-caps 03/01/18 12/28/21 clonazepam 1 mg tablet 2 mg PO PRN PRN 08/01/20 12/28/21 lacosamide 200 mg tablet (Vimpat) 250 mg PO BID 05/07/21 12/28/21 hydroxyzine pamoate 25 mg capsule 1 cap PO BID PRN 10/27/21 12/28/21 lamotrigine 100 mg tablet 100 mg PO BID 7 days #14 tabs 10/27/21 12/28/21 lamotrigine 200 mg tablet 200 mg PO BID 7 days #14 tab-caps 10/27/21 12/28/21 lacosamide 100 mg tablet 50 tab BID 12/28/21 12/28/21 Previous Rx's Medication Instructions Recorded topiramate 200 mg tablet (Topamax) 200 mg PO BID #180 tab-caps 03/01/18 lamotrigine 100 mg tablet 100 mg PO BID 7 days #14 tabs 10/27/21 lamotrigine 200 mg tablet 200 mg PO BID 7 days #14 tab-caps 10/27/21 Allergies Allergy/AdvReac Type Severity Reaction Status Date / Time No Known Allergies Allergy Unverified 12/28/21 16:29 General Stated Complaint: Seizure DWIGHT: 3 Review of Systems All systems reviewed & are unremarkable except as noted in HPI and below Constitutional Constitutional: Denies fever(s) Neurologic Neurologic: Reports as per HPI PFSH All Active Problems (Updated 12/28/21 @ 20:35 by Cameron Staples MD) COVID-19 (Acute) AVM (arteriovenous malformation) (Acute) Generalized tonic-clonic seizure (Acute) Closed fracture of distal clavicle (Acute 01/09/21) Kidney stone on right side (Acute) Contusion of rib on left side (Acute) Clavicle fracture (Acute) Pre-syncope (Acute) Partial symptomatic epilepsy with complex partial seizures, intractable, with status epilepticus (Acute 10/20/16) 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 and with status migrainosus (Acute 08/13/16) Chronic daily headache (Acute 08/13/16) AVM (arteriovenous malformation) brain (Acute) Social History Smoking/Tobacco Use Status: Current every day Tobacco Type: e-cigarettes Smoking risk assessment performed?: Yes Alcohol Intake: never Drug use: Daily Substance use type: marijuana Current gender identity: male Do you feel safe at home: Yes Do you feel safe in your relationship?: Yes Exam Const General: cooperative and no acute distress HENHI Head: normocephalic and atraumatic Mouth: moist mucous membranes Eyes EOM: EOM intact bilaterally Neck Neck: trachea midline and supple Resp Auscultation: clear to auscultation bilaterally, no rales, no rhonchi and no wheezes Cardio Rate: regular rate and not tachycardic Rhythm: regular rhythm GI Palpation: soft, not firm, no guarding, no masses, not rigid and nontender Skin General skin exam: no rashes or lesions noted Neuro General: patient alert, patient awake, patient oriented x3 and tone normal Cranial Nerves: CN's II-XI intact bilaterally Cognition: normal cognition Speech: speech normal Motor: strength 5/5 throughout Sensory Exam: no sensory deficits noted Extrem General: no edema Psych Appearance: grossly normal Mental Status: mental status grossly normal Speech and Movement: speech and movement normal Course Vital Signs Vital signs: Vital Signs Temperature 36.6 C 12/28/21 16:18 Pulse 96 H 12/28/21 16:18 Respiratory Rate 14 12/28/21 16:18 Blood Pressure 122/67 12/28/21 16:18 Pulse Oximetry 99 12/28/21 16:18 Temperature 36.6 C 12/28/21 16:18 Temperature Source Temporal Artery Scan 12/28/21 16:18 Pulse 85 12/28/21 16:46 Pulse 86 12/28/21 16:46 Respiratory Rate 11 L 12/28/21 16:46 Respiratory Effort Non-Labored 12/28/21 16:32 Respiratory Depth Normal 12/28/21 16:32 Respiratory Pattern Normal 12/28/21 16:32 Blood Pressure 130/61 12/28/21 16:46 Blood Pressure Mean 72 12/28/21 16:46 Blood Pressure Position Sitting 12/28/21 16:18 Pulse Oximetry 99 12/28/21 16:46 Oxygen Delivery Method Room Air 12/28/21 16:18 Oxygen Flow Rate 0 12/28/21 16:18
[2021-12-28 17:26] LABS: Abs Immature Grans 0.08 10^3/uL (0.0-0.06); Absolute Eosinophil Count 0.03 10^3/uL (0.0-0.7); Absolute Monocyte Count 1.03 10^3/uL (0.1-0.8); Absolute Neutrophil Count 12.15 10^3/uL (1.2-6.7); Basophils % 0.3; Eosinophils % 0.2; HCT 45.6 % (40.0-50.0); HGB 15.5 g/dL (13.5-17.5); Immature Grans % 0.6; MCH 30.4 pg (27.0-33.0); MCV 89 fL (80-95); MPV 11.1 fL (8.0-11.0); Monocytes % 7.2; Neutrophils % 84.7; Platelet Count 277 10^3/uL (130-400); RDW 12.6 % (11.8-14.1); RDW-SD 41.7 fL; WBC 14.35 10^3/uL (4.4-10.8)
[2021-12-28 17:27] LABS: Absolute Basophil Count 0.04 10^3/uL (0.0-0.2)
[2021-12-28 17:36] LABS: Anion Gap 15.1 mmol/L (3-11); BUN 14 mg/dL (7-18); CO2 19.9 mmol/L (21.0-32.0); CREATININE 1.7 mg/dL (0.70-1.30); Calcium 10.1 mg/dL (8.5-10.1); Chloride 104 mmol/L (98-107); Estimated GFR 54.59 (mL/min/1.73m2); Glucose 116 mg/dL (74-106); Potassium 3.5 mmol/L (3.5-5.1); Sodium 139 mmol/L (136-145)
[2021-12-28] MEDS: LORazepam 2 MG/ML VIAL (17:41)
--- NOTE | 2021-12-28 17:45 | DI.CT_ITS ---
Exam(s) CT BRAIN CTA EXAM: CT BRAIN CTA CLINICAL HISTORY: avm, seizure, headache. TECHNIQUE: Imaging Protocol: Both noninfused and contrast infused CT scans of the brain were perform ed. IV Contrast Dose =75 cc Axial computed tomography images with coronal and sagittal reformatted images were created and review ed COMPARISON: CT CT HEAD WO from 12/28/2021 FINDINGS: There are no skull fractures nor fluid in the visualized paranasal sinuses. ANTERIOR CIRCULATION: Again noted is abundant artifact from the AVM embolization coils in the right frontal region there ar e dilated veins along the right temporoparietal convexity. POSTERIOR CIRCULATION: Basilar artery is formed by both vertebral arteries at the skull base. Ascend s with normal luminal diameter. Distally it terminates as patent posterior cerebral arteries althoug h difficult to assess because of streak artifact. IMPRESSION: S/p right AVM embolization. Residual superficial and deep venous drainage as described but evaluatio n is limited due to the amount of artifact here from the multiple embolization material in the right frontal region.. If clinically indicated further study with conventional catheter angiography can be performed. There are no ring enhancing lesions in the brain.. Study 1st read by [facility]. RADIATION DOSE DELIVERED: 1,060.72mGy.cm Total DLP DATA REPOSITORY: All CT scans at this facility are submitted to the National Radiology Data Registry (NRDR) Dose Index Registry (DIR) with the [employer] (ACR). RADIATION OPTIMIZATION: All CT scans at this facility use at least one of these dose optimization te chniques: automated exposure control; mA and/or kV adjustment per patient size (includes targeted exa ms where dose is matched to clinical indication); or iterative reconstruction.
--- NOTE | 2021-12-28 17:49 | NUR.NOTE ---
Nursing Note:Pt had a Tonic Clonic type seizure while in CT Scan lasting about 1 minute ED MD and myself responded, pt given 1 mg Ativan IVP, seizure activity resolved, pt is currently Alert and Oriented, does not recall seizure activity. [place]
--- NOTE | 2021-12-28 17:52 | DI.VRAD_ITS ---
PROCEDURE INFORMATION: Exam: CT Head Without Contrast Exam date and time: 12/28/2021 6:36 PM Age: 31 years old Clinical indication: Other: Seizure; Prior surgery TECHNIQUE: Imaging protocol: Computed tomography of the head without contrast. COMPARISON: CT HEAD WO 10/27/2021 12:27 PM FINDINGS: Brain: Extensive prior right frontal embolization/embolic material with streak artifact limiting evaluation. Residual dilated right frontal veins partially visualized No hemorrhage. Unremarkable white matter. No mass effect. Cerebral ventricles: No ventriculomegaly. Paranasal sinuses: A polyp/retention cyst is noted in the right maxillary sinus. Polypoid tissue in the posterior left ethmoid air cells No fluid levels. Mastoid air cells: Visualized mastoid air cells are well aerated. Bones/joints: Unremarkable. No acute fracture. Soft tissues: Unremarkable. IMPRESSION: No acute intracranial hemorrhage Status post embolization of a large right frontal AVM. Findings are similar in appearance to the previous examination Dictated and Authenticated by: Jm Salmeron MD. Ordering:ROQUE Barnes MD
[2021-12-28] MEDS: HYDROmorphone 2 MG/ML SYR 0.5 MG IVP (18:32)
[2021-12-28] MEDS: ACETAMINOPHEN 1,000 MG/100 ML BTL 400 MG IVPB (18:33)
[2021-12-28] MEDS: Omnipaque 350 MG/ML 100 ML BTL IJ (18:45)
--- NOTE | 2021-12-28 19:12 | DI.VRAD_ITS ---
PROCEDURE INFORMATION: Exam: CTA Head With Contrast, Arteriography Exam date and time: 12/28/2021 7:46 PM Age: 31 years old Clinical indication: Convulsions / seizures; Prior surgery; Surgery type: Avm, seizure, headache TECHNIQUE: Imaging protocol: Computed tomographic angiography of the head with contrast. Exam focused on the arteries. 3D rendering (Not supervised by radiologist): MIP and/or 3D reconstructed images were created by the technologist. COMPARISON: CT brain neck CTA 04/02/2018 3:38 PM FINDINGS: Grossly stable post embolic changes in the right frontal lobe with streak artifact limiting evaluation. Dilated veins extending into the inferior temporal region and along the right temporoparietal convexities as well as the right frontal region noted. Inferior/medial drainage into the right cavernous sinus suspected. The visualized proximal right JEOVANNY and MCA branches are mildly enlarged. The distal right ICA is mildly tortuous/enlarged The vertebrobasilar system is patent. The posterior cerebral arteries are grossly patent. The left ICA, MCA and JEOVANNY are grossly patent IMPRESSION: Status post right AVM embolization. Residual superficial and deep venous drainage as described. Limited evaluation as described. Further evaluation with conventional catheter angiography as clinically indicated Dictated and Authenticated by: Jm Salmeron MD. Ordering:ROQUE Barnes MD
[2021-12-28] MEDS: Divalproex Sodium 500 MG TAB.ER.24H PO (20:13)
[2021-12-28 20:45] LABS: ALT 56 U/L (16-63); AST 25 U/L (15-37); Albumin 4.9 g/dL (3.4-5.0); Alkaline Phosphatase 124 U/L (46-116); Bilirubin, Direct 0.1 mg/dL (0.0-0.2); Bilirubin, Total 0.4 mg/dL (0.2-1.0); Total Protein 8.3 g/dL (6.4-8.2)
--- NOTE | 2021-12-28 21:59 | ED.PROG_ITS ---
Date of service: 12/28/21 Time of Service: 21:00 Medical Decision Making 2100 --please see Dr. Staples's note for initial presentation, exam and plan. Case endorsed to follow-up with [facility] for recommendations after review of imaging. At minimum, patient will need admission for observation overnight due to 3 seizures today. Per discussion of Dr. Staples with [facility] neurology, they recommended starting patient on delayed release Depakote 500 mg twice daily and change clonazepam from 1-2mg qhs prn to 1 mg twice daily upon discharge. 2200 --patient requested his evening seizure meds. Still awaiting to speak to [facility] Patient is stating he does not want to go to [facility]. He also does not want to stay in the hospital. He is aware of the risk of or disability due to missed or delayed diagnoses or worsening condition and he demonstrates capacity to make decisions. 2300 --Case discussed with [facility] neurosurgery who have not yet reviewed the images. They note that if there was no bleeding noted there would be no reason for emergent transfer or emergent angiography. He will review the images and call back if any further recommendations. 0030 --patient is now agreeable to stay in the hospital but states he does not want to be transferred to an outside facility. There are beds available upstairs but limited staff to manage patients. We will hold patient in the ED overnight with plan for admission to the floor once staffing improves at 7 AM. 0130 --discussed with nursing dairy farm supervisor and there is now capability to take patient on the floor. Case discussed with hospitalist who accepts patient for admission. Medical Records Medical records reviewed: Yes I reviewed the patient's medical records. Imaging Data Radiologic Study: Radiologist's impression: CT Head Without Contrast Exam date and time: 12/28/2021 6:36 PM Age: 31 years old Clinical indication: Other: Seizure; Prior surgery TECHNIQUE: Imaging protocol: Computed tomography of the head without contrast. COMPARISON: CT HEAD WO 10/27/2021 12:27 PM FINDINGS: Brain:? Extensive prior right frontal embolization/embolic material with streak artifact limiting evaluation.? Residual dilated right frontal veins partially visualized No hemorrhage. Unremarkable white matter. No mass effect. Cerebral ventricles: No ventriculomegaly. Paranasal sinuses: A polyp/retention cyst is noted in the right maxillary sinus.? Polypoid tissue in the posterior left ethmoid air cells No fluid levels. Mastoid air cells: Visualized mastoid air cells are well aerated. Bones/joints: Unremarkable. No acute fracture. Soft tissues: Unremarkable. IMPRESSION: No acute intracranial hemorrhage Status post embolization of a large right frontal AVM.? Findings are similar in appearance to the previous examination. CTA Head With Contrast, Arteriography Exam date and time: 12/28/2021 7:46 PM Age: 31 years old Clinical indication: Convulsions / seizures; Prior surgery; Surgery type: Avm, seizure, headache TECHNIQUE: Imaging protocol: Computed tomographic angiography of the head with contrast. Exam focused on the arteries. 3D rendering (Not supervised by radiologist): MIP and/or 3D reconstructed images were created by the technologist. COMPARISON: CT brain neck CTA 04/02/2018 3:38 PM FINDINGS: Grossly stable post embolic changes in the right frontal lobe with streak artifact limiting evaluation.? Dilated veins extending into the inferior temporal region and along the right temporoparietal convexities as well as the right frontal region noted.? Inferior/medial drainage into the right cavernous sinus suspected.? The visualized proximal right JEOVANNY and MCA branches are mildly enlarged.? The distal right ICA is mildly tortuous/enlarged The vertebrobasilar system is patent.? The posterior cerebral arteries are grossly patent.? The left ICA, MCA and JEOVANNY are grossly patent IMPRESSION: Status post right AVM embolization.? Residual superficial and deep venous drainage as described.? Limited evaluation as described.? Further evaluation with conventional catheter angiography as clinically indicated Lab Data Lab results reviewed: Yes I reviewed the patient's lab results. Labs: Laboratory Tests Range/Units 12/28/21 12/28/21 12/28/21 17:01 17:21 17:21 WBC (4.4-10.8) 10^3/uL 14.35 H RBC (4.36-5.78) 10^6/uL 5.10 Hgb (13.5-17.5) g/dL 15.5 Hct (40.0-50.0) % 45.6 MCV (80-95) fL 89 MCH (27.0-33.0) pg 30.4 MCHC (32.0-36.0) % 34.0 RDW (11.8-14.1) % 12.6 Plt Count (130-400) 10^3/uL 277 MPV (8.0-11.0) fL 11.1 H Immature Gran % 0.6 Neutrophils % 84.7 Lymphocytes % 7.0 Monocytes % 7.2 Eosinophils % 0.2 Basophils % 0.3 Nucleated RBC % (0.0-0.3) % 0.0 Absolute Neutrophils (1.2-6.7) 10^3/uL 12.15 H Absolute Lymphocytes (1.2-3.4) 10^3/uL 1.00 L Absolute Monocytes (0.1-0.8) 10^3/uL 1.03 H Absolute Eosinophils (0.0-0.7) 10^3/uL 0.03 Absolute Basophils (0.0-0.2) 10^3/uL 0.04 Sodium (136-145) mmol/L 139 Potassium (3.5-5.1) mmol/L 3.5 Chloride (98-107) mmol/L 104 Carbon Dioxide (21.0-32.0) mmol/L 19.9 L Anion Gap (3-11) mmol/L 15.1 H BUN (7-18) mg/dL 14 Creatinine (0.70-1.30) mg/dL 1.7 H Est GFR (CKD-EPI 2020) (mL/min/1.73m2) 54.59 Glucose (74-106) mg/dL 116 H Calcium (8.5-10.1) mg/dL 10.1 Total Bilirubin (0.2-1.0) mg/dL 0.4 Conjugated Bilirubin (0.0-0.2) mg/dL 0.1 AST (15-37) U/L 25 ALT (16-63) U/L 56 Alkaline Phosphatase (46-116) U/L 124 H Total Protein (6.4-8.2) g/dL 8.3 H Albumin (3.4-5.0) g/dL 4.9 Sign Out Sign Out Data: Sign Out Comment: Patient is a 31-year-old male with history of right frontal lobe AVM status post embolization, seizure disorder, here after 2 seizures today that were generalized tonic-clonic with headache. Patient had another generalized tonic-clonic seizure here in in the emergency department. He was treated with Ativan 1 mg IV. Patient did complain of significant headache which he does have with his seizures. Patient was treated with Dilaudid 0.5 mg IV as well as IV acetaminophen. Patient has had significant improvement in pain. Headache now only mild. Neuro intact. Patient had CTA of the brain which shows dilated veins extending into the inferior temporal region and along the right temporal parietal convexities as well as the right frontal region, inferior medial drainage into the right cavernous sinus suspected, visualized proximal right JEOVANNY and MCA branches are mildly enlarged. The distal right ICA is mildly tortuous and large. Further evaluation with event catheter angiography as clinically indicated. I spoke with [facility] neurosurgery who notes [facility] is on neurosurgical diversion and recommends discussion with [facility] [place] as patient was previously treated there with embolization. They are unsure if emergent DSA is necessary versus outpatient follow-up. I have please call to [facility] neuro[place] and sent images for review. Plan at signout is to discuss case with neurosurgeon and determine disposition. Patient has had 3 seizures today and I do think he would benefit from inpatient treatment. I spoke with the neurologist on-call at [facility] who recommends adding Depakote to current regiment as patient has negative side effects to Keppra. Patient was given Depakote 500 mg oral load. LFTs are pending at time of signout. Last updated by Cameron Staples MD at 12/28/21 20:50 Discharge Plan Disposition Patient Disposition: [facility] INPATIENT Condition: Serious Discharge Details Clinical Impression: AVM (arteriovenous malformation), Generalized tonic-clonic seizure Admit Date/Time: 12/29/21 02:31 Admit Provider: Abraham Jean Baptiste Attending Provider: Abraham Jean Baptiste Primary Care Provider: Veronika Palmer ED Provider: Clara Lakhani Discharge Data Discharge Date/Time-TO BE ENTERED AT DEPARTURE: 12/29/21 04:53
[2021-12-28] MEDS: Normal Saline 1,000 ML 1000 ML IV (22:26)
[2021-12-28] MEDS: Topiramate 100 MG TAB 200 MG PO (22:26)
[2021-12-28] MEDS: lamoTRIgine 100 MG TAB 300 MG PO (22:27)
[2021-12-28] MEDS: Lacosamide 100 MG TAB 200 MG PO (22:28)
[2021-12-29] VITALS (15 sets, daily range): BP systolic 123–142; BP diastolic 58–76; PULSE 74–88; RESP 16–18; TEMP 37.1–37.4; O2SAT 96–99
--- NOTE | 2021-12-29 02:19 | W.PM.HP.N ---
Date of service: 12/29/21 Time of Service: 02:19 Assessment and Plan Assessment and plan (1) Generalized tonic-clonic seizure: Status: Acute Assessment and plan: Seizure in patient with known seizure disorder. No specific precipitant evident, though perhaps the recent adjustment of meds may be playing a role. Will continue usual regimen along with additions suggested by neurology. Will also check UDS and await drug levels of usual regimen. History of Present Illness History of Present Illness Chief Complaint: seizure Narrative: 31 male with h/o seizure disorder in setting of large cerebral AVM, [place] [facility] [place] [facility] [place], report is that he has been undergoing some tapering of usual seizure regimen. Here today with seizure x2. And during w/u here in [place] had a third seizure, for which he received Ativan. CT shows know AVM with embolic material, and no hemorrhage. [place] [facility] [place] [facility] [place], advised increase Klonopin to 1 bid and begin Depakote (patient states he has been on Depakote in past, remotely, does not recall why it was stopped but not due to allergy). At present time patient states he feels fine and asking when he can go home. Labs of note for white count 14, and normal electrolytes. Levels for Lamictal, Lacosamide and Topamax are pending. Review of Systems Narrative: per HPI PFSH All Active Problems (Updated 12/28/21 @ 20:35 by Cameron Staples MD) COVID-19 (Acute) AVM (arteriovenous malformation) (Acute) Generalized tonic-clonic seizure (Acute) Closed fracture of distal clavicle (Acute 01/09/21) Kidney stone on right side (Acute) Contusion of rib on left side (Acute) Clavicle fracture (Acute) Pre-syncope (Acute) Partial symptomatic epilepsy with complex partial seizures, intractable, with status epilepticus (Acute 10/20/16) 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 and with status migrainosus (Acute 08/13/16) Chronic daily headache (Acute 08/13/16) AVM (arteriovenous malformation) brain (Acute) Social History Smoking/Tobacco Use Status: Current every day Tobacco Type: e-cigarettes Smoking risk assessment performed?: Yes Alcohol Intake: never Drug use: Daily Substance use type: marijuana Current gender identity: male Do you feel safe at home: Yes Do you feel safe in your relationship?: Yes Meds Allergies and Home Medications Allergies Allergy/AdvReac Type Severity Reaction Status Date / Time No Known Allergies Allergy Unverified 12/28/21 16:29 Home Medications Medication Instructions Recorded Confirmed Type topiramate 200 mg tablet (Topamax) 200 mg PO BID #180 tab-caps 03/01/18 12/28/21 Rx clonazepam 1 mg tablet 2 mg PO PRN PRN 08/01/20 12/28/21 History lacosamide 200 mg tablet (Vimpat) 250 mg PO BID 05/07/21 12/28/21 History hydroxyzine pamoate 25 mg capsule 1 cap PO BID PRN 10/27/21 12/28/21 History lamotrigine 100 mg tablet 100 mg PO BID 7 days #14 tabs 10/27/21 12/28/21 Rx lamotrigine 200 mg tablet 200 mg PO BID 7 days #14 tab-caps 10/27/21 12/28/21 Rx lacosamide 100 mg tablet 50 tab BID 12/28/21 12/28/21 History Exam Narrative Exam Narrative: 138/58, 70, 36.6, 12, 98% RA. HEENT atraumatic; neck supple; lungs clear; heart RRR; abdomen soft and NT; extremities w/o edema; neuro Ox3, lucid, moves all 4s Results Labs Result diagrams: 12/28/21 17:21 12/28/21 17:21 Labs: Laboratory Results - last 24 hr 12/28/21 12/28/21 12/28/21 17:01 17:21 17:21 WBC 14.35 H RBC 5.10 Hgb 15.5 Hct 45.6 MCV 89 MCH 30.4 MCHC 34.0 RDW 12.6 Plt Count 277 MPV 11.1 H Immature Gran % 0.6 Neutrophils % 84.7 Lymphocytes % 7.0 Monocytes % 7.2 Eosinophils % 0.2 Basophils % 0.3 Nucleated RBC % 0.0 Absolute Neutrophils 12.15 H Absolute Lymphocytes 1.00 L Absolute Monocytes 1.03 H Absolute Eosinophils 0.03 Absolute Basophils 0.04 Sodium 139 Potassium 3.5 Chloride 104 Carbon Dioxide 19.9 L Anion Gap 15.1 H BUN 14 Creatinine 1.7 H Est GFR (CKD-EPI 2020) 54.59 Glucose 116 H Calcium 10.1 Total Bilirubin 0.4 Conjugated Bilirubin 0.1 AST 25 ALT 56 Alkaline Phosphatase 124 H Total Protein 8.3 H Albumin 4.9 Last Vital Signs Temp 36.6 C 12/28/21 16:18 Pulse 79 12/29/21 01:00 Resp 12 12/28/21 22:10 BP 138/58 L 12/29/21 01:00 Pulse Ox 98 12/29/21 01:20
[2021-12-29 03:18] LABS: COVID-19 PCR Negative (Negative); Influenza A PCR Negative (Negative); Influenza B PCR Negative (Negative); RSV PCR Negative (Negative)
[2021-12-29 03:30] LABS: Source Nasopharynx
[2021-12-29] MEDS: Topiramate 100 MG TAB 200 MG PO (08:42)
[2021-12-29] MEDS: lamoTRIgine 100 MG TAB 200 MG PO (08:43)
[2021-12-29] MEDS: clonazePAM 1 MG TAB PO (08:44)
[2021-12-29] MEDS: Divalproex 500 MG TABEC PO (08:44)
[2021-12-29] MEDS: Lacosamide 100 MG TAB 250 MG PO (10:00)
[2021-12-29] MEDS: Lacosamide 100 MG TAB 50 MG PO (10:00)
[2021-12-29] MEDS: Acetaminophen 500 MG TAB 1000 MG PO (11:39)
[2021-12-29] MEDS: Normal Saline Flush 10 ML SYR IVP ×3 (11:40→14:35)
--- NOTE | 2021-12-29 12:28 | PDOC.CMIN ---
- If Service Date Differs Date of service: 12/29/21 Time of Service: 12:28 Care Management Initial Assess REASON FOR HOSPITALIZATION:: Seizure PAST MEDICAL HISTORY/PAST SURGICAL HISTORY:: COVID-19 (Acute). AVM (arteriovenous malformation) (Acute). Generalized tonic-clonic seizure (Acute). Closed fracture of distal clavicle (Acute 01/09/21). Kidney stone on right side (Acute). Contusion of rib on left side (Acute). Clavicle fracture (Acute). Pre-syncope (Acute). Partial symptomatic epilepsy with complex partial seizures, intractable, with status epilepticus (Acute 10/20/16). 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 and with status migrainosus (Acute 08/13/16). Chronic daily headache (Acute 08/13/16). AVM (arteriovenous malformation) brain (Acute) PREVIOUS FUNCTIONAL STATUS/SOCIAL/FAMILY SUPPORTS:: Resides in [place] with Jessica. Independent at baseline. ADVANCE DIRECTIVES:: None on file. Has patient been provided with info about the portal/API?: Yes Did the patient sign up for the portal?: Yes CODE STATUS:: Full Code CURRENT [place]COMMUNITY [place] [facility] [place] PRIMARY CARE PHYSICIAN:: Veronika Palmer POTENTIAL DISCHARGE NEEDS:: Follow up appointments. PATIENT/FAMILY EDUCATION NEEDS:: Review discharge instructions, discuss Ask Me Three. ANTICIPATED BARRIERS TO DISCHARGE:: None identified. TRANSPORTATION:: Via private vehicle with Jessica baca. PLAN:: Ronen will return home and follow up with his PCP and plan of care as prescribed. He will follow up with [facility] [place] as an [place], where he is already established as a patient. He will transport via private vehicle with Jessica.
[2021-12-29] MEDS: Ondansetron 4 MG/2 ML VIAL IVP ×2 (12:29→14:34)
[2021-12-29] MEDS: Ketorolac 15 MG/ML VIAL IVP (14:34)
[2021-12-29] MEDS: LORazepam 2 MG/ML VIAL 0.5 MG IVP (14:34)
--- NOTE | 2021-12-29 16:23 | W.PM.DS.N ---
Date of service: 12/29/21 Time of Service: 16:24 DS: Diagnosis Discharge Diagnosis (1) Generalized tonic-clonic seizure: Status: Acute Discharge Plan Disposition Patient Disposition: HOME Condition: Serious Discharge Details Reason For Visit: Seizure Admit Date/Time: 12/29/21 02:31 Admit Provider: Abraham Jean Baptiste Attending Provider: Abraham Jean Baptiste Primary Care Provider: Veronika Palmer Hospital Course Hospital Course: This patient is a 31 yo male with h/o seizure disorder in setting of large cerebral AVM, s/p embolization at [facility] [place]. [place]ed at [facility] [place], report is that he has been undergoing some tapering of usual seizure regimen. Here with seizure x2 and also had a seizure in CT for which he received Ativan. CT shows know AVM with embolic material, and no hemorrhage. Case reviewed with [facility] [place] and [facility] [place], advised increase Klonopin to 1 bid and begin Depakote (patient states he has been on Depakote in past, remotely, does not recall why it was stopped but not due to allergy). Patient was observed overnight and had no further seizures. He is discharged, stable, to home; follow up with neurology. In discussion with neurology the following is recommended: Increase clonazepam to 1 mg in the morning and 2 mg at bedtime. Continue other medications as prior to hospitalizations until meeting with Neurology on . Lamotrigine 300 mg in the morning and 300 mg in the evening; lacosamide 200 mg in the morning and 200 mg in the evening; Topiramate 200 mg in the morning and 200 mg in the evening. Hydroxyzine 25 mg twice a day as needed. Home Meds and New Rx's Prescriptions: New clonazepam 1 mg Tablet 2 mg PO QHS Qty: 60 0RF lamotrigine 100 mg Tablet 300 mg PO BID Qty: 0 0RF clonazepam 1 mg tablet 1 mg PO QAM Qty: 30 0RF ondansetron 4 mg tablet,disintegrating 4 mg PO Q6H PRN (Reason: nausea and vomiting) Qty: 30 0RF Continued topiramate [Topamax] 200 mg tablet 200 mg PO BID Qty: 180 3RF lacosamide [Vimpat] 200 mg tablet 200 mg PO BID hydroxyzine pamoate 25 mg capsule 1 cap PO BID PRN Label Comments: TAKE 1 CAPSULE BY MOUTH TWICE DAILY NEEDED FOR HEADACHE Discontinued clonazepam 1 mg tablet 0 mg PO BID MDD D Label Comments: TAKE 1 TABLET BY MOUTH TWICE DAILY Rx Instructions: 1 mg qam, 2 mg qpm lamotrigine 100 mg tablet 300 tab PO BID Label Comments: TAKE 1 TABLET BY MOUTH TWICE DAILY TOTAL DOSE 300 MG TWICE DAILY Discharge Instructions Instructions: Ketorolac (By mouth), Recurrent Seizures in Adults (DC) Additional Instructions: Increase clonazepam to 1 mg in the morning and 2 mg at bedtime. Continue other medications as prior to hospitalizations until meeting with Neurology on . Lamotrigine 300 mg in the morning and 300 mg in the evening; lacosamide 200 mg in the morning and 200 mg in the evening; Topiramate 200 mg in the morning and 200 mg in the evening. Hydroxyzine 25 mg twice a day as needed. Ondansetron for nause - 4 mg orally every 6 hours as needed Follow up as planned on Jan 07 with Neurology at [facility] [place] Stand Alone Forms: Nursing Discharge Form Referrals: Veronika Palmer [Primary Care Provider] - (Please call Wednesday to make an appointment in the next 2 weeks ) Jairo Young [ CONSULTING PHYSICIAN] - (Neurology @ [facility] [place] as planned on Jan 07, 2022) Activity:: Activity as Tolerated Equipment/Supplies:: No Equipment Needed Diet:: As Tolerated Discharge Data Discharge Date/Time-TO BE ENTERED AT DEPARTURE: 12/29/21 17:09 DS: Summary Time Spent with Patient providing and/or coordinating discharge services: Greater than 30 minutes Status at Discharge Functional status at discharge: independent ambulation Overall status at discharge: patient is back to baseline Mental Status: mental status grossly normal Speech and Movement: speech and movement normal Mood: congruent mood Affect: normal affect Exam Const General: cooperative and no acute distress [facility] Head: normocephalic and atraumatic Mouth: moist mucous membranes Eyes EOM: EOM intact bilaterally Neck Neck: trachea midline and supple Resp Auscultation: clear to auscultation bilaterally, no rales, no rhonchi and no wheezes Cardio Rate: regular rate and not tachycardic Rhythm: regular rhythm GI Palpation: soft, not firm, no guarding, no masses, not rigid and nontender Skin General skin exam: no rashes or lesions noted Neuro General: patient alert, patient awake, patient oriented x3 and tone normal Cranial Nerves: CN's II-XI intact bilaterally Cognition: normal cognition Speech: speech normal Motor: strength 5/5 throughout Sensory Exam: no sensory deficits noted Extrem General: no edema Psych Appearance: grossly normal Mental Status: mental status grossly normal Speech and Movement: speech and movement normal Mood: congruent mood Affect: normal affect DS: Data Vitals/I&O Vitals and I&O: Vital Signs Temperature 37.4 C 12/29/21 15:55 Temperature Source Tympanic 12/29/21 15:55 Pulse 88 12/29/21 15:55 Pulse Rhythm Regular 12/29/21 10:59 Pulse 80 12/28/21 22:10 Respiratory Rate 17 12/29/21 15:55 Respiratory Effort 12/29/21 10:59 Respiratory Depth Normal 12/29/21 10:59 Respiratory Pattern Normal 12/29/21 10:59 Blood Pressure 127/76 12/29/21 15:55 Blood Pressure Mean 71 12/29/21 01:00 Blood Pressure Position Sitting 12/28/21 16:18 Pulse Oximetry 98 12/29/21 15:55 Oxygen Delivery Method Room Air 12/29/21 15:55 Oxygen Flow Rate 0 12/29/21 15:55 Pain Level 5 12/29/21 15:55 Comment 12/29/21 04:58 Intake & Output 12/28/21 12/29/21 12/29/21 23:59 11:59 23:59 Intake Total 100 / 100 1200 / 1200 Balance 100 / 100 1200 / 1200 Weight 77.111 kg 76.8 kg Intake: IV 100 / 100 1000 / 1000 Oral 200 / 200 Other: Urine Color Yellow Urine Appearance Clear Urine Odor None Comment pT uses bathroom independently. Voiding Methods Toilet Data Completed and Pending Labs on day of discharge: Labs from last 24 hours 12/29/21 12/28/21 12/28/21 02:30 17:21 17:21 WBC 14.35 H RBC 5.10 Hgb 15.5 Hct 45.6 MCV 89 MCH 30.4 MCHC 34.0 RDW 12.6 Plt Count 277 MPV 11.1 H Immature Gran % 0.6 Neutrophils % 84.7 Lymphocytes % 7.0 Monocytes % 7.2 Eosinophils % 0.2 Basophils % 0.3 Nucleated RBC % 0.0 Absolute Neutrophils 12.15 H Absolute Lymphocytes 1.00 L Absolute Monocytes 1.03 H Absolute Eosinophils 0.03 Absolute Basophils 0.04 Sodium 139 Potassium 3.5 Chloride 104 Carbon Dioxide 19.9 L Anion Gap 15.1 H BUN 14 Creatinine 1.7 H Est GFR (CKD-EPI 2020) 54.59 Glucose 116 H Calcium 10.1 Total Bilirubin Conjugated Bilirubin AST ALT Alkaline Phosphatase Total Protein Albumin Lamotrigine Lacosamide Level Topiramate COVID-19 Source Nasopharynx SARS-CoV-2 (PCR) Negative Influenza Type A (PCR) Negative Influenza Type B (PCR) Negative RSV (PCR) Negative 12/28/21 12/28/21 17:21 17:01 WBC RBC Hgb Hct MCV MCH MCHC RDW Plt Count MPV Immature Gran % Neutrophils % Lymphocytes % Monocytes % Eosinophils % Basophils % Nucleated RBC % Absolute Neutrophils Absolute Lymphocytes Absolute Monocytes Absolute Eosinophils Absolute Basophils Sodium Potassium Chloride Carbon Dioxide Anion Gap BUN Creatinine Est GFR (CKD-EPI 2020) Glucose Calcium Total Bilirubin 0.4 Conjugated Bilirubin 0.1 AST 25 ALT 56 Alkaline Phosphatase 124 H Total Protein 8.3 H Albumin 4.9 Lamotrigine Pending Lacosamide Level Pending Topiramate Pending COVID-19 Source SARS-CoV-2 (PCR) Influenza Type A (PCR) Influenza Type B (PCR) RSV (PCR) PFSH All Active Problems (Updated 12/28/21 @ 20:35 by Cameron Staples MD) COVID-19 (Acute) AVM (arteriovenous malformation) (Acute) Generalized tonic-clonic seizure (Acute) Closed fracture of distal clavicle (Acute 01/09/21) Kidney stone on right side (Acute) Contusion of rib on left side (Acute) Clavicle fracture (Acute) Pre-syncope (Acute) Partial symptomatic epilepsy with complex partial seizures, intractable, with status epilepticus (Acute 10/20/16) 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 and with status migrainosus (Acute 08/13/16) Chronic daily headache (Acute 08/13/16) AVM (arteriovenous malformation) brain (Acute) Social History Smoking/Tobacco Use Status: Current every day Tobacco Type: e-cigarettes Smoking risk assessment performed?: Yes Alcohol Intake: never Drug use: Daily Substance use type: marijuana Current gender identity: male Do you feel safe at home: Yes Do you feel safe in your relationship?: Yes
[2021-12-31 09:03] LABS: Topiramate 6.6 mcg/mL
[2021-12-31 11:36] LABS: Lacosamide 1.5 mcg/mL (1.0 - 10.0)
[2021-12-31 13:24] LABS: Lamotrigine 2.4 mcg/mL (3.0-15.0)
== END 2021-12-29 17:09 | disposition home or self-care (01) ==
LOC: ER 12-29 04:00 → MS 12-29 04:54
PROVIDERS: Student in an Organized Health Care Education/Training Program; Admitting Provider General Practice; Emergency Provider Physician Assistant; PCP Family Medicine; Visit Provider General Practice
DX: G40.409 Other generalized epilepsy and epileptic syndromes, not intractable, without status epilepticus (principal); Q28.2 Arteriovenous malformation of cerebral vessels; F51.9 Sleep disorder not due to a substance or known physiological condition, unspecified; Z79.899 Other long term (current) drug therapy; F17.290 Nicotine dependence, other tobacco product, uncomplicated; Z86.16 Personal history of COVID-19; Z20.822 Contact with and (suspected) exposure to COVID-19
CPT/HCPCS: 36415; 70496; 80048; 80076; 80175; 87637; 96361; 96365; 96374; 96375; 96376; 99285; 70450; 80201; 80235; 85025; 99235; G0378; J0131; J1170; J1885; J2060; J2405; J3490

== ENCOUNTER 2022-08-15 14:20 | Emergency (ER) | payer MEDICARE, MEDICAID, SELFPAY ==
[2022-08-15 14:25] VITALS: BP 107/79; PULSE 103; RESP 15; TEMP 36.8; O2SAT 96
[2022-08-15 14:50] VITALS: RESP 18
[2022-08-15] MEDS: LORazepam 2 MG/ML VIAL 1 MG IVP (15:17)
[2022-08-15] MEDS: Lactated Ringers 500 ML 1000 ML IV (15:18)
[2022-08-15 15:39] LABS: Anion Gap 13.1 mmol/L (3-11); BUN 10 mg/dL (7-18); CO2 19.9 mmol/L (21.0-32.0); CREATININE 1.2 mg/dL (0.70-1.30); Calcium 9.1 mg/dL (8.5-10.1); Chloride 107 mmol/L (98-107); Glucose 138 mg/dL (74-106); Magnesium 1.9 mg/dL (1.8-2.4); Potassium 3.5 mmol/L (3.5-5.1); Sodium 140 mmol/L (136-145)
--- NOTE | 2022-08-15 16:16 | ED.GENADUL_ITS ---
Discharge Plan Discharge Details Chief Complaint: [facility] Primary Care Provider: Veronika Palmer ED Provider: Cesar Israel Home Meds and New Rx's Prescriptions: No Action topiramate [Topamax] 200 mg tablet 200 mg PO BID Qty: 180 3RF lacosamide [Vimpat] 200 mg tablet 200 mg PO BID hydroxyzine pamoate 25 mg capsule 1 cap PO BID PRN Patient Comments: TAKE 1 CAPSULE BY MOUTH TWICE DAILY NEEDED FOR HEADACHE clonazepam 1 mg Tablet 2 mg PO QHS Qty: 60 0RF Patient Comments: no longer taking 08/15/22 CT lamotrigine 100 mg Tablet 300 mg PO BID Qty: 0 0RF clonazepam 1 mg tablet 1 mg PO QAM Qty: 30 0RF Patient Comments: no longer taking 08/15/22 CT ondansetron 4 mg tablet,disintegrating 4 mg PO Q6H PRN (Reason: nausea and vomiting) Qty: 30 0RF Patient Comments: no longer taking 08/15/22 CT clobazam 10 mg tablet 25 mg PO BID Patient Comments: TAKE ONE TABLET BY MOUTH TWICE A DAY Medical Decision Making Well-appearing gentleman with known seizure disorder, compliant with his m edications. Lately under a significant amount of stress given some social issues regarding his disability. Poor sleep. Normal examination emergency department. Electrolytes within normal limits. At this time I do not see any reason to modify any of his medications. I have asked him to take some Tylenol for his myalgias and to try to get at least 9 hours of sleep. I see no reason for imaging at this point. HPI General Date/Time Provider Initiated Documentation: 08/15/22 14:31 . HPI Narrative: 32-year-old male presents to the emergency department still that he is feeling fatigue and malaise. His symptoms are vague but he is concerned because he has a history of seizures without aura. States that he has been taking all his medications. The only thing this change in his life is significant amount of stress secondary to his disability being question in an appeal. States he has been sleeping well. Does not drink alcohol. Uses marijuana on a daily basis but states that since his norm. No fevers no chills. Complaining of mild headache and some muscle tension. No arthralgias. Related Data Home Medications Medication Instructions Recorded Confirmed topiramate 200 mg tablet (Topamax) 200 mg PO BID #180 tab-caps 03/01/18 08/15/22 lacosamide 200 mg tablet (Vimpat) 200 mg PO BID 05/07/21 08/15/22 hydroxyzine pamoate 25 mg capsule 1 cap PO BID PRN 10/27/21 08/15/22 clonazepam 1 mg tablet 1 mg PO QAM #30 tabs 12/29/21 clonazepam 1 mg tablet 2 mg PO QHS #60 tabs 12/29/21 lamotrigine 100 mg tablet 300 mg PO BID #0 tabs 12/29/21 08/15/22 ondansetron 4 mg disintegrating 4 mg PO Q6H PRN nausea and 12/29/21 tablet vomiting #30 tabs clobazam 10 mg tablet 25 mg PO BID 08/15/22 08/15/22 Previous Rx's Medication Instructions Recorded topiramate 200 mg tablet (Topamax) 200 mg PO BID #180 tab-caps 03/01/18 clonazepam 1 mg tablet 1 mg PO QAM #30 tabs 12/29/21 clonazepam 1 mg tablet 2 mg PO QHS #60 tabs 12/29/21 lamotrigine 100 mg tablet 300 mg PO BID #0 tabs 12/29/21 ondansetron 4 mg disintegrating 4 mg PO Q6H PRN nausea and 12/29/21 tablet vomiting #30 tabs Allergies Allergy/AdvReac Type Severity Reaction Status Date / Time No Known Allergies Allergy Unverified 08/15/22 14:32 General Stated Complaint: [facility] DIWGHT: 3 Review of Systems Narrative: 10 point review of systems negative unless otherwise specified in the HPI PFSH All Active Problems (Updated 12/28/21 @ 20:35 by Cameron Staples MD) COVID-19 (Acute) AVM (arteriovenous malformation) (Acute) Generalized tonic-clonic seizure (Acute) Closed fracture of distal clavicle (Acute 01/09/21) Kidney stone on right side (Acute) Contusion of rib on left side (Acute) Clavicle fracture (Acute) Pre-syncope (Acute) Partial symptomatic epilepsy with complex partial seizures, intractable, with status epilepticus (Acute 10/20/16) 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 and with status migrainosus (Acute 08/13/16) Chronic daily headache (Acute 08/13/16) AVM (arteriovenous malformation) brain (Acute) Social History Smoking/Tobacco Use Status: Former Tobacco Use Smoking risk assessment performed?: Yes Alcohol Intake: never Drug use: Daily Substance use type: marijuana Current gender identity: male Do you feel safe at home: Yes Do you feel safe in your relationship?: Yes Exam Narrative Exam Narrative: General: A,A Ox3, Calm, no apparent distress, well developed, pleasant and cooperative Head Size/Shape: normocephalic, atraumatic Eyes Pupils: PERRLA Extraocular Mobility: intact and symmetrical Conjunctiva: non-injected, anicteric, no discharge Ears, Nose, Throat Nares: patent bilaterally Oral Cavity: moist Neck: no masses Respiratory Respiratory Effort: no dyspnea Auscultation: clear to auscultation bilaterally, normal breath sounds, no wheezing, no rales/crackles Cardiovascular Abdomen Inspection and Palpation: soft, non-tender, non-distended, no hepatosplenomegaly Musculoskeletal System Joints, Bones, and Muscles: no deformities Extremities: warm and well-perfused, no cyanosis, capillary refill <2 seconds Skin Skin Inspection: no rash, no lesions, no bruising Neurological Motor: normal tone, normal strength, moving all extremities equally Psychiatric: good insight, good judgement, normal mood and affect Course Vital Signs Vital signs: Vital Signs Temperature 36.8 C 08/15/22 14:25 Pulse 103 H 08/15/22 14:25 Respiratory Rate 15 08/15/22 14:25 Blood Pressure 107/79 08/15/22 14:25 Pulse Oximetry 96 08/15/22 14:25 Temperature 36.8 C 08/15/22 14:25 Temperature Source Oral 08/15/22 14:25 Pulse 103 H 08/15/22 14:25 Respiratory Rate 18 08/15/22 14:50 Respiratory Effort Normal 08/15/22 14:50 Respiratory Depth Normal 08/15/22 14:50 Respiratory Pattern Normal 08/15/22 14:50 Blood Pressure 107/79 08/15/22 14:25 Blood Pressure Position Sitting 08/15/22 14:25 Pulse Oximetry 96 08/15/22 14:25 Oxygen Delivery Method Room Air 08/15/22 14:25 Oxygen Flow Rate 0 08/15/22 14:25 Pain Level 8 08/15/22 14:25 Lab/Test Results Lab/Test Results: Laboratory Tests Range/Units 08/15/22 14:39 Sodium (136-145) mmol/L 140 Potassium (3.5-5.1) mmol/L 3.5 Chloride (98-107) mmol/L 107 Carbon Dioxide (21.0-32.0) mmol/L 19.9 L Anion Gap (3-11) mmol/L 13.1 H BUN (7-18) mg/dL 10 Creatinine (0.70-1.30) mg/dL 1.2 Est GFR (CKD-EPI 2020) (mL/min/1.73m2) 82.40 Glucose (74-106) mg/dL 138 H Calcium (8.5-10.1) mg/dL 9.1 Magnesium (1.8-2.4) mg/dL 1.9
[2022-08-15 16:29] VITALS: PULSE 78; RESP 16; O2SAT 98
== END 2022-08-15 16:31 | disposition home or self-care (01) ==
PROVIDERS: Emergency Provider Emergency Medicine; PCP Family Medicine
DX: R53.83 Other fatigue (principal); R53.81 Other malaise; R42 Dizziness and giddiness
CPT/HCPCS: 80048; 96361; 96374; 99284; 83735; J2060

== ENCOUNTER 2023-01-08 16:46 | Inpatient (IN) | payer MEDICARE, SELFPAY ==
[2023-01-08] VITALS (56 sets, daily range): BP systolic 77–192; BP diastolic 18–101; PULSE 90–151; RESP 16–37; TEMP 37.1; O2SAT 93–98
--- NOTE | 2023-01-08 16:54 | DI.CT_ITS ---
Exam(s) CT HEAD CERV SPINE FACIAL WO EXAM: CT HEAD CERV SPINE FACIAL WO CLINICAL HISTORY: seizure/altered. TECHNIQUE: Imaging Protocol: Axial computed tomography images with coronal and sagittal reformatted images were created and reviewed COMPARISON: CT CT BRAIN CTA from 12/28/2021 FINDINGS: CT Head: Large amount of artifact related to large AVM coiling. Ventricles and Extra axial spaces: Normal in size and morphology for the patient's age. Hemorrhage: None. Cerebral parenchyma: Visualized portions of the brain are unremarkable. Again noted are prominent ve ins in the right frontal and temporal regions. This is unchanged. Midline shift: None. Brainstem/Cerebellum: Normal. Calvarium: Normal. Visualized Paranasal sinuses/Mastoids: Small mucous retention cysts in the maxillary sinuses. Small air-fluid level posterior right maxillary sinus. Opacification of a few ethmoid air cells. Soft Tissues: Unremarkable. CT Face: Exam limited by motion. Facial Bones: No definite fracture is noted in facial bones. Sinuses and Mastoids: Unremarkable. Globes, extraocular muscles, optic nerves and retrobulbar fat: Normal. Upper aerodigestive tract: Normal. Mandible and bilateral temporomandibular joints: Normal. Soft tissues: Normal. CT Cervical Spine: Exam limited by motion. Bones: No acute fracture or subluxation. Soft Tissues: Unremarkable. Lung Apices: Few apical blebs, otherwise clear. IMPRESSION: 1. No acute intracranial process. Exam limited by large amount of metallic artifact from AVM coils. 2. No acute fracture or subluxation in the cervical spine. 3. No acute facial fracture. Air-fluid level in the right maxillary sinus could represent sinus disea se or could be posttraumatic. RADIATION DOSE DELIVERED: Total DLP DATA REPOSITORY: All CT scans at this facility are submitted to the National Radiology Data Registry (NRDR) Dose Index Registry (DIR) with the [employer] (ACR). RADIATION OPTIMIZATION: All CT scans at this facility use at least one of these dose optimization te chniques: automated exposure control; mA and/or kV adjustment per patient size (includes targeted exa ms where dose is matched to clinical indication); or iterative reconstruction.
--- NOTE | 2023-01-08 16:58 | ED.GENADUL_ITS ---
Discharge Plan Disposition Condition: Stable Discharge Details Chief Complaint: Seizure Clinical Impression: Generalized seizure, Leukocytosis, Metabolic acidosis Primary Care Provider: Veronika Palmer ED Provider: Manav Jameson [place]burn Meds and New Rx's Prescriptions: No Action topiramate [Topamax] 200 mg tablet 200 mg PO BID Qty: 180 3RF lacosamide [Vimpat] 200 mg tablet 200 mg PO BID clonazepam 1 mg Tablet 2 mg PO QHS Qty: 60 0RF clonazepam 1 mg tablet 1 mg PO QAM Qty: 30 0RF clobazam 10 mg tablet 25 mg PO BID Patient Comments: TAKE ONE TABLET BY MOUTH TWICE A DAY citalopram 10 mg tablet 10 mg PO DAILY Patient Comments: TAKE 1 TABLET BY MOUTH EVERY DAY lamotrigine 200 mg tablet 300 mg PO BID Patient Comments: TAKE 1 AND 1/2 TABLETS BY MOUTH TWICE DAILY baclofen 10 mg tablet 10 mg PO TID PRN Patient Comments: TAKE ONE TABLET BY MOUTH THREE TIMES A DAY NEEDED hydroxyzine HCl 25 mg tablet 25 mg PO QID PRN Medical Decision Making Patient presenting to ED after generalized seizure with history of same. found him on the couch but unclear whether he fell or not. He does have history of AVM with coil. Allowed patient time to recover from Versed despite lack of gag. Had planned on placing OPA consent to CT. However, once OPA placed patient clearly began to localize and had enough of a gag that this was removed. He has since become more awake but incoherent. Attempting to get up and unable to redirect. Given 1 mg Ativan IV in order to keep calm. Will attempt CT head and cervical spine once able. Laboratory studies sent. Patient's white count is elevated to 27.7 likely stress reaction. Chemistries with bicarb of 6 and an anion gap at 30 suggesting significant time of seizing. Magnesium also elevated. Creatinine is 2.5 so we will give 2 L of LR. We will plan repeat labs after 2 L is completed. Patient received a second dose of Ativan as well as some IV acetaminophen. Eventually calm down enough to obtain imaging. There is no acute hemorrhage. There is no cervical spine fracture. Patient continues to be altered to some degree though is much more calm. Still complaining of headache so ketorolac ordered. 22:50 - patient is pretty much back to baseline in terms of mental status. Reports that he has had body aches all day but denies having fever, headache, cough, abdominal pain prior to this afternoon. Repeat white count remains elevated at 30. His chemistries are somewhat improved with a bicarb now of 14.4 and an anion gap of 16.6. Creatinine is a little better at 2.2. Potassium has decreased markedly to 2.8 and will be repleted. Magnesium is also come down still high at 3.2. Patient really does not wish to be admitted to the hospital but does understand the significance of the lab abnormalities. Agreeable to another liter of fluid, IV and p.o. potassium and repeat laboratory studies again later this morning. We will also send fluvid given the complaint of body aches. Signed out to oncoming physician Dr. Villarreal. Medical Records Medical records reviewed: Yes I reviewed the patient's medical records. Lab Data Lab results reviewed: Yes I reviewed the patient's lab results. Lab results narrative: see MDM HPI General Mode of arrival: EMS . Date/Time Provider Initiated Documentation: 01/08/23 16:54 . Limitations to Documentation: altered mental status . Information obtained by: family () . HPI Narrative: Patient arrives to the ED by EMS status post generalized seizure. Patient found seizing by , unknown for how long had been seizing prior. Patient with history of seizures on multiple medications for same. History of large AVM which has been coiled. Last seizure was sometime last year. He received 10 mg of Versed IM and 5 mg of Versed IV before the seizure stopped. He arrives here unresponsive with bilateral nasal trumpet. reports that he has not missed any medications as far as she knows. He has not been ill as of late. No drug or alcohol use other than marijuana. Related Data Home Medications Medication Instructions Recorded Confirmed topiramate 200 mg tablet (Topamax) 200 mg PO BID #180 tab-caps 03/01/18 01/08/23 lacosamide 200 mg tablet (Vimpat) 200 mg PO BID 05/07/21 01/08/23 clonazepam 1 mg tablet 1 mg PO QAM #30 tabs 12/29/21 01/08/23 clonazepam 1 mg tablet 2 mg (2 x 1 mg) PO QHS #60 tabs 12/29/21 01/08/23 clobazam 10 mg tablet 25 mg PO BID 08/15/22 01/08/23 baclofen 10 mg tablet 10 mg PO TID PRN 01/08/23 01/08/23 citalopram 10 mg tablet 10 mg PO DAILY 01/08/23 01/08/23 hydroxyzine HCl 25 mg tablet 25 mg PO QID PRN 01/08/23 01/08/23 lamotrigine 200 mg tablet 300 mg PO BID 01/08/23 01/08/23 Previous Rx's Medication Instructions Recorded topiramate 200 mg tablet (Topamax) 200 mg PO BID #180 tab-caps 03/01/18 clonazepam 1 mg tablet 1 mg PO QAM #30 tabs 12/29/21 clonazepam 1 mg tablet 2 mg (2 x 1 mg) PO QHS #60 tabs 12/29/21 Allergies Allergy/AdvReac Type Severity Reaction Status Date / Time No Known Allergies Allergy Unverified 01/08/23 16:53 General Stated Complaint: Seizure DWIGHT: 2 Review of Systems Unobtainable due to mental status PFSH All Active Problems (Updated 01/08/23 @ 22:54 by Manav Jameson MD) Metabolic acidosis (Acute) Leukocytosis (Acute) Generalized seizure (Acute) COVID-19 (Acute) AVM (arteriovenous malformation) (Acute) Closed fracture of distal clavicle (Acute 01/09/21) Kidney stone on right side (Acute) Contusion of rib on left side (Acute) Clavicle fracture (Acute) Pre-syncope (Acute) Partial symptomatic epilepsy with complex partial seizures, intractable, with status epilepticus (Acute 10/20/16) 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 and with status migrainosus (Acute 08/13/16) Chronic daily headache (Acute 08/13/16) AVM (arteriovenous malformation) brain (Acute) Medical History Anxiety Seizure disorder Cerebral AVM Surgical History S/P coil embolization of cerebral aneurysm Social History Smoking/Tobacco Use Status: Former Tobacco Use Smoking risk assessment performed?: Yes Alcohol Intake: never Drug use: Daily Substance use type: marijuana Current gender identity: male Do you feel safe at home: Yes Do you feel safe in your relationship?: Yes Exam Narrative Exam Narrative: Const: WDWN male unresponive with no gag HEENT: NC/AT. Normal facial exam. Eyes: Normal conjunctiva and sclera. Eyes deviated to left, PERRL Neck: Supple. Trachea midline. Lungs: Normal respiratory effort. Lungs are clear. Cor: RRR. Good radial pulses. GI: Soft/ND. Neuro: Unresponsive with no gag reflex and eyes deviated left but he is moving all extremities. Ext: No C/C/E. Skin: Warm and dry without rash. Course Vital Signs Vital signs: Vital Signs Temperature 98.8 F 01/08/23 16:44 Pulse 104 H 01/08/23 16:44 Respiratory Rate 26 H 01/08/23 16:44 Blood Pressure 192/80 H 01/08/23 16:44 Pulse Oximetry 97 01/08/23 16:44 Temperature 98.8 F 01/08/23 16:44 Temperature Source Skin 01/08/23 16:44 Pulse 104 H 01/08/23 16:44 Respiratory Rate 26 H 01/08/23 16:44 Blood Pressure 192/80 H 01/08/23 16:44 Blood Pressure Position Supine 01/08/23 16:44 Pulse Oximetry 97 01/08/23 16:44 Oxygen Delivery Method Nasal Cannula 01/08/23 16:44 Oxygen Flow Rate 3.5 01/08/23 16:44 Critical Care Time Critical Care Time Critical Care Time: Yes Total Critical Care Time: 60 Attestation: Upon my evaluation, this patient had a high probability of imminent or life- threatening deterioration, which required my direct attention, intervention, and personal management. I have personally provided 60 minutes of critical care time exclusive of time spent on separately billable procedures. Time includes review of laboratory data, radiology results, discussion with consultants, and monitoring for potential decompensation. Interventions were performed as documented above.
[2023-01-08 17:04] LABS: HCT 48.2 % (40.0-50.0); HGB 15.4 g/dL (13.5-17.5); MCV 94 fL (80-95); MPV 11.1 fL (8.0-11.0); Platelet Count 364 10^3/uL (130-400); RBC 5.14 10^6/uL (4.36-5.78); RDW 13.3 % (11.8-14.1); RDW-SD 46.5 fL
[2023-01-08 17:19] LABS: ALT 71 U/L (16-63); AST 79 U/L (15-37); Albumin 4.3 g/dL (3.4-5.0); Alkaline Phosphatase 177 U/L (46-116); Anion Gap 30.4 mmol/L (3-11); BUN 11 mg/dL (7-18); Bilirubin, Total 0.3 mg/dL (0.2-1.0); CO2 5.6 mmol/L (21.0-32.0); CREATININE 2.5 mg/dL (0.70-1.30); Calcium 9.4 mg/dL (8.5-10.1); Chloride 103 mmol/L (98-107); Estimated GFR 34.15 (mL/min/1.73m2); Glucose 256 mg/dL (74-106); Potassium 4.4 mmol/L (3.5-5.1); Sodium 139 mmol/L (136-145); Total Protein 8.1 g/dL (6.4-8.2)
[2023-01-08 17:20] LABS: Absolute Lymphocyte Count 11.08 10^3/uL (1.2-3.4); Absolute Monocyte Count 1.11 10^3/uL (0.1-0.8); Absolute Neutrophil Count 14.13 10^3/uL (1.2-6.7); Atypical Lymphocytes % 3; Bands % 2
[2023-01-08 17:21] LABS: Absolute Eosinophil Count 1.11 10^3/uL (0.0-0.7)
[2023-01-08 17:22] LABS: Diff Comment Diff Reviewed; Magnesium 4.3 mg/dL (1.8-2.4); Myelocytes % 1; RBC Morphology Normal
[2023-01-08] MEDS: LORazepam 2 MG/ML VIAL (17:29)
[2023-01-08] MEDS: LORazepam 2 MG/ML VIAL 1 MG IVP (17:47)
[2023-01-08] MEDS: Lactated Ringers 2,000 ML 1000 ML IV (17:48)
--- NOTE | 2023-01-08 18:38 | NUR.NOTE ---
Nursing Note: patient continues to be agitated on an off. Patient is awake at this time kees saying it hurts but unable to vocalized what is hurting . also stating cant do this anymore whhile trying to get out of bed
[2023-01-08] MEDS: ACETAMINOPHEN 1,000 MG/100 ML BTL 400 MG IVPB (19:00)
--- NOTE | 2023-01-08 20:26 | DI.VRAD_ITS ---
PROCEDURE INFORMATION: Exam: CT Head Without Contrast Exam date and time: 01/08/2023 6:08 PM Age: 32 years old Clinical indication: Altered mental status/memory loss and other: Seizure; Prior surgery; Surgery date: 6+ months; Surgery type: Unknown when surg; Additional info: Seizure/altered TECHNIQUE: Imaging protocol: Computed tomography of the head without contrast. COMPARISON: CT BRAIN CTA 12/28/2021 7:46 PM FINDINGS: Brain: Prominent metallic artifact in the right frontal region and medial right temporal lobe consistent with history of previous AVM coiling. This is causing significant artifact. No acute cerebral, brainstem, or cerebellar pathology is evident. No intracranial hemorrhage identified. There are some slightly hyperdense right frontal extra-axial serpiginous foci which are likely prominent vascular structures related to this previous AVM. Additional prominent cerebral veins are seen in the lateral parietal region. These are also evident 12/28/2021. Cerebral ventricles: No ventriculomegaly. Paranasal sinuses: Small right maxillary sinus air-fluid level. This is a new finding. Mastoid air cells: Visualized mastoid air cells are well aerated. Bones/joints: Mastoid bones are well aerated. Soft tissues: Unremarkable. IMPRESSION: 1. No intracranial hemorrhage. 2. No skull fracture. 3. Prominent area of metal embolization coils in the low right frontal lobe and medial right temporal lobe region. Consistent with history stating AVM treatment. There are some persistent prominent cerebral veins in the right frontal and lateral parietal region. PROCEDURE INFORMATION: Exam: CT Maxillofacial Without Contrast Exam date and time: 01/08/2023 6:08 PM Age: 32 years old Clinical indication: Altered mental status/memory loss and other: Seizure; Prior surgery; Surgery date: 6+ months; Surgery type: Unknown when surg; Additional info: Seizure/altered TECHNIQUE: Imaging protocol: Computed tomography of the face without contrast. COMPARISON: CT BRAIN CTA 12/28/2021 7:46 PM FINDINGS: Orbital cavities: Ocular globes and intraorbital contents are unremarkable. Bones/joints: No facial bone fracture evident. Paranasal sinuses: Nonspecific right maxillary sinus air-fluid level. Small mucous retention cyst in the right maxillary sinus as well. Soft tissues: Unremarkable. IMPRESSION: 1. No facial bone fracture. 2. Nonspecific right maxillary sinus air-fluid level. No associated skeletal trauma. Consider sinusitis. PROCEDURE INFORMATION: Exam: CT Cervical Spine Without Contrast Exam date and time: 01/08/2023 6:08 PM Age: 32 years old Clinical indication: Altered mental status/memory loss and other: Seizure; Prior surgery; Surgery date: 6+ months; Surgery type: Unknown when surg; Additional info: Seizure/altered TECHNIQUE: Imaging protocol: Computed tomography of the cervical spine without contrast. COMPARISON: CT brain neck CTA 04/02/2018 3:38 PM FINDINGS: Bones/joints: No acute fracture. Normal alignment. No significant disc bulge or herniation. No severe spinal canal stenosis. No significant neural foraminal narrowing. Lungs: Lung apices are normal. Soft tissues: Unremarkable. IMPRESSION: 1. No acute findings. 2. No fracture or dislocation. 3. Mild motion artifact degradation of image quality. Dictated and Authenticated by: Ayo Temple MD. Ordering:ARTEM Em MD
[2023-01-08] MEDS: Ketorolac 15 MG/ML VIAL IVP (21:21)
--- NOTE | 2023-01-08 21:32 | NUR.NOTE ---
Nursing Note: patient laying on stretcher calm at this time. Able to form full sentences. C/O generalized body ache. Provider aware, meds given as ordered.
[2023-01-08 22:02] LABS: HCT 41.4 % (40.0-50.0); HGB 14.6 g/dL (13.5-17.5); MCHC 35.3 % (32.0-36.0); MCV 85 fL (80-95); MPV 10.4 fL (8.0-11.0); Platelet Count 285 10^3/uL (130-400); RBC 4.87 10^6/uL (4.36-5.78); RDW 13.1 % (11.8-14.1)
[2023-01-08 22:12] LABS: WBC 30.01 10^3/uL (4.4-10.8)
[2023-01-08 22:26] LABS: Anion Gap 16.6 mmol/L (3-11); BUN 18 mg/dL (7-18); CO2 14.4 mmol/L (21.0-32.0); CREATININE 2.2 mg/dL (0.70-1.30); Calcium 8.5 mg/dL (8.5-10.1); Chloride 106 mmol/L (98-107); Estimated GFR 39.81 (mL/min/1.73m2); Glucose 121 mg/dL (74-106); Magnesium 3.2 mg/dL (1.8-2.4); Sodium 137 mmol/L (136-145)
[2023-01-08 22:31] LABS: Potassium 2.8 mmol/L (3.5-5.1)
[2023-01-08] MEDS: Potassium Chloride 20 MEQ TABCR PO (23:00)
[2023-01-08 23:09] LABS: Creatine Kinase > 10000 U/L (39-308)
[2023-01-08] MEDS: POTASSIUM CHLORIDE 10 MEQ/100 ML BAG 100 MEQ IVPB (23:14)
[2023-01-08] MEDS: Lactated Ringers 1,000 ML 1000 ML IV (23:15)
[2023-01-08] MEDS: levETIRAcetam 2,000 MG in Normal Saline 100 ML 400 MG IVPB (23:50)
[2023-01-09] VITALS (66 sets, daily range): BP systolic 94–143; BP diastolic 59–75; PULSE 65–105; RESP 16–34; TEMP 36.6–38; O2SAT 95–99
--- NOTE | 2023-01-09 | DI.RAD_ITS ---
Exam(s) XR PORTABLE CHEST AP EXAM: XR PORTABLE CHEST AP CLINICAL HISTORY: concern for aspiration event TECHNIQUE: 2D digital imaging was performed. COMPARISON: CR,XR XR RIBS LT W PA LAT CHEST from 08/01/2020 FINDINGS: Leads overlie the chest. LUNGS: Clear. No pleural abnormality seen. HEART: Normal size. AORTA: Normal diameter. BONES: Unremarkable for age. Soft tissues: Unremarkable. IMPRESSION: No acute findings. DATA REPOSITORY: RADIATION DOSE DELIVERED:
[2023-01-09 00:16] LABS: COVID-19 PCR Negative (Negative); Influenza A PCR Negative (Negative); Influenza B PCR Negative (Negative); RSV PCR Negative (Negative)
[2023-01-09 00:25] LABS: Source Nasopharynx
[2023-01-09] MEDS: SODIUM BICARBONATE 150 MEQ in DEXTROSE 5%-WATER 850 ML IV ×2 (00:25→13:39)
[2023-01-09] MEDS: POTASSIUM CHLORIDE 10 MEQ/100 ML BAG 100 MEQ IVPB (00:25)
--- NOTE | 2023-01-09 00:50 | W.PM.HP.N ---
Date of service: 01/09/23 Time of Service: 00:50 Assessment and Plan Assessment and plan (1) Generalized seizure: Status: Acute Assessment and plan: Seizure, secondary to non-compliance due to lack of insurance. Has been loaded with Keppra, will simply resume usual regimen. Rhabdomyolysis due to presumed prolonged period of seizure activity, with signs of NOAH (improving). Will continue aggressive hydration ( I think saline will be adequate at this point), monitoring of renal function, potassium replacement and trending electrolyte abnormalities and acidosis (presumed lactic acidosis due to seizure). The leukocytosis is likely stress related, no evidence of infectious process, but will monitor closely; I see no need for antibiotics at present. Seizure: resume usual meds Rhabdo: IVF, check U/A, monitor Creat Electrolytes/acidosis: replace K, monitor K, Mg and HCO3 Leukocytosis: trend, monitor clinically History of Present Illness History of Present Illness Chief Complaint: seizure Narrative: 32 male with h/o seizure disorder, cerebral AVM s/p coiling -- states he has missed doses of his meds recently due to lack of insurance. Was found down today by brought to ER. In ER initial findings of note for patient being unresponsive, white count 27, HCO3 6, AG 30, Mg 4.3, CPK > 10,000 and Creat 2.5. Head CT negative. Patient loaded with 2 gm Keppra, fluid resuscitation with 2L saline and since on HCO3 infusion at 150/hr. Mental status has since returned to baseline. Patient c/o diffuse myalgias and weakness. Repeat labs show white count 30, Creat 2.2, K 2.8, Mg 3.2, HCO3 14 and AG 16. I was asked to evaluate for admission. Review of Systems Narrative: per HPI PFSH All Active Problems Metabolic acidosis (Acute) Leukocytosis (Acute) Generalized seizure (Acute) COVID-19 (Acute) AVM (arteriovenous malformation) (Acute) Closed fracture of distal clavicle (Acute 01/09/21) Kidney stone on right side (Acute) Contusion of rib on left side (Acute) Clavicle fracture (Acute) Pre-syncope (Acute) Partial symptomatic epilepsy with complex partial seizures, intractable, with status epilepticus (Acute 10/20/16) 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 and with status migrainosus (Acute 08/13/16) Chronic daily headache (Acute 08/13/16) AVM (arteriovenous malformation) brain (Acute) Medical History Anxiety Seizure disorder Cerebral AVM Surgical History S/P coil embolization of cerebral aneurysm Social History Smoking/Tobacco Use Status: Former Tobacco Use Smoking risk assessment performed?: Yes Alcohol Intake: never Drug use: Daily Substance use type: marijuana Current gender identity: male Do you feel safe at home: Yes Do you feel safe in your relationship?: Yes Meds Allergies and Home Medications Allergies Allergy/AdvReac Type Severity Reaction Status Date / Time No Known Allergies Allergy Unverified 01/08/23 16:53 Home Medications Medication Instructions Recorded Confirmed Type topiramate 200 mg tablet (Topamax) 200 mg PO BID #180 tab-caps 03/01/18 01/08/23 Rx lacosamide 200 mg tablet (Vimpat) 200 mg PO BID 05/07/21 01/08/23 History clonazepam 1 mg tablet 1 mg PO QAM #30 tabs 12/29/21 01/08/23 Rx clonazepam 1 mg tablet 2 mg (2 x 1 mg) PO QHS #60 tabs 12/29/21 01/08/23 Rx clobazam 10 mg tablet 25 mg PO BID 08/15/22 01/08/23 History baclofen 10 mg tablet 10 mg PO TID PRN 01/08/23 01/08/23 History citalopram 10 mg tablet 10 mg PO DAILY 01/08/23 01/08/23 History hydroxyzine HCl 25 mg tablet 25 mg PO QID PRN 01/08/23 01/08/23 History lamotrigine 200 mg tablet 300 mg PO BID 01/08/23 01/08/23 History Exam Narrative Exam Narrative: 121/72, 95, 37.1, 24, 98% RA. HEENT atraumatic; neck supple; lungs clear; heart RRR; abdomen soft and NT; extremities w/o edema; neuro Ox3, lucid, strength 4+/5 Results Labs 01/08/23 21:55 01/08/23 21:55 Labs: Laboratory Results - last 24 hr 01/08/23 01/08/23 01/08/23 16:55 21:55 23:35 WBC 27.70 H* 30.01 H* RBC 5.14 4.87 Hgb 15.4 14.6 Hct 48.2 41.4 MCV 94 85 D MCH 30.0 30.0 MCHC 32.0 35.3 D RDW 13.3 13.1 Plt Count 364 285 MPV 11.1 H 10.4 Immature Gran % See Differential Neutrophils % 49.0 Band Neutrophils % 2 Lymphocytes % 37.0 Atypical Lymphs % 3 Monocytes % 4.0 Eosinophils % 4.0 Basophils % 0.0 Myelocytes % 1 Nucleated RBC % 0.0 Absolute Neutrophils 14.13 H Absolute Lymphocytes 11.08 H Absolute Monocytes 1.11 H Absolute Eosinophils 1.11 H Absolute Basophils 0.00 RBC Morphology Normal Sodium 139 137 Potassium 4.4 2.8 L* D Chloride 103 106 Carbon Dioxide 5.6 L 14.4 L Anion Gap 30.4 H 16.6 H BUN 11 18 Creatinine 2.5 H 2.2 H Est GFR (CKD-EPI 2020) 34.15 39.81 Glucose 256 H 121 H Calcium 9.4 8.5 Magnesium 4.3 H* 3.2 H Total Bilirubin 0.3 AST 79 H ALT 71 H Alkaline Phosphatase 177 H Creatine Kinase > 06817 H Total Protein 8.1 Albumin 4.3 COVID-19 Source Nasopharynx SARS-CoV-2 (PCR) Negative Influenza Type A (PCR) Negative Influenza Type B (PCR) Negative RSV (PCR) Negative Last Vital Signs Temp 37.1 C 01/08/23 16:44 Pulse 95 H 01/08/23 22:16 Resp 24 01/09/23 00:20 BP 121/72 01/08/23 22:16 Pulse Ox 98 01/09/23 00:00 Time Spent Time spent with Patient: 55-74 minutes Time was spent: preparing to see the patient(eg.review tests), obtaining and/or reviewing separately otained hiistory, ordering medications,tests, procedures, referring, communicating with other health hospice spiritual care coordinator and indepentently interpreting results
[2023-01-09 01:10] LABS: Bilirubin Negative (Negative); Blood Large (Negative); Clarity Clear (Clear); Glucose 100 mg/dL (Negative); Ketones Negative (Negative); Leukocyte Esterase Negative (Negative); Nitrite Negative (Negative); Specific Gravity 1.025 (1.005-1.025); Urobilinogen 0.2 mg/dL (Up to 0.2); pH 5.5 (5-8)
--- NOTE | 2023-01-09 01:11 | NUR.NOTE ---
R forearm IV,charted by previous nurse is not in R forearm but in L forearm.Nursing Note:
[2023-01-09 01:20] LABS: Bacteria Rare HPF (Negative); C & S Indicated? No; Casts Negative LPF (Negative); Crystals Negative HPF (Negative); Epithelial Cells Negative HPF (Negative); Mucus Negative (Negative); WBC Negative HPF (0-5)
[2023-01-09] MEDS: POTASSIUM CHLORIDE/0.9% NACL 1,000 ML 150 MEQ IV (02:30)
[2023-01-09] MEDS: clonazePAM 1 MG TAB 2 MG PO ×2 (03:10→21:55)
[2023-01-09] MEDS: Baclofen 10 MG TAB PO ×2 (03:14→19:53)
[2023-01-09] MEDS: oxyCODONE 5 MG TAB PO ×3 (03:14→19:53)
--- NOTE | 2023-01-09 04:05 | ED.PROG_ITS ---
Date of service: 01/09/23 Time of Service: 04:05 Medical Decision Making Patient was signed out to me by my colleague Dr. Jameson. Please refer to his HPI, physical exam, assessment plan. At time of signout we are awaiting acceptance for admission. I did give him 2 g of Keppra. His urine was being alkalinized by bicarb drip, and he remained stable. [facility] did not have available beds. We did contact the hospitalist at [facility] and Dr. Jean Baptiste agrees with the plan for admission. I have extensively reviewed the treatment plan with the patient. I have addressed all patient concerns at this time. I have also discussed the plan with the admitting physician and they agree with the current assessment and plan and have agreed to assume responsibility for the patient. All parties demonstrate verbal understanding and agreement with our assessment and plan at this time. The documentation in this chart was dictated using Directworks dictation software. Please excuse any dictation errors. Sign Out Sign Out Data: Sign Out Comment: Patient presented with seizure. Initial laboratory studies suggested a prolonged seizure. Expected improvement with repeat labs, however, patient continues to have anion gap, NOAH, leukocytosis. CPK was added onto the second set of labs and is greater than 10,000. Patient ordered for another liter of LR and then will be switched to a bicarb infusion. Call placed to [facility] for transfer as there are no ICU beds here. Patient signed out to Dr. Villarreal. Last updated by Manav Jameson MD at 01/08/23 23:25 Discharge Plan Disposition Condition: Stable Discharge Details Chief Complaint: Seizure Clinical Impression: Generalized seizure, Leukocytosis, Metabolic acidosis Admit Date/Time: 01/09/23 01:13 Admit Provider: Abraham Jean Baptiste Attending Provider: Abraham Jean Baptiste Primary Care Provider: Veronika Palmer ED Provider: Yovani Villarreal Discharge Data Discharge Date/Time-TO BE ENTERED AT DEPARTURE: 01/09/23 02:45
[2023-01-09 06:44] LABS: HCT 39.5 % (40.0-50.0); HGB 13.8 g/dL (13.5-17.5); MCH 29.9 pg (27.0-33.0); MCHC 34.9 % (32.0-36.0); MCV 86 fL (80-95); MPV 11.2 fL (8.0-11.0); Platelet Count 242 10^3/uL (130-400); RBC 4.62 10^6/uL (4.36-5.78); RDW 12.7 % (11.8-14.1); RDW-SD 39.6 fL; WBC 24.17 10^3/uL (4.4-10.8)
[2023-01-09 06:46] LABS: Lab Add On Test DONE
[2023-01-09 07:12] LABS: Anion Gap 14.2 mmol/L (3-11); BUN 27 mg/dL (7-18); CO2 15.8 mmol/L (21.0-32.0); CREATININE 2.5 mg/dL (0.70-1.30); Calcium 8.4 mg/dL (8.5-10.1); Chloride 103 mmol/L (98-107); Estimated GFR 34.15 (mL/min/1.73m2); Glucose 127 mg/dL (74-106); Sodium 133 mmol/L (136-145)
[2023-01-09 07:14] LABS: Potassium 2.9 mmol/L (3.5-5.1)
[2023-01-09 07:38] LABS: Creatine Kinase > 10000 U/L (39-308)
[2023-01-09] MEDS: lamoTRIgine 100 MG TAB 300 MG PO ×2 (08:35→19:54)
[2023-01-09] MEDS: Lacosamide 100 MG TAB 200 MG PO ×2 (08:36→19:53)
[2023-01-09] MEDS: Citalopram 10 MG TAB PO (08:36)
[2023-01-09] MEDS: clonazePAM 1 MG TAB PO (08:36)
[2023-01-09] MEDS: POTASSIUM CHLORIDE 20 MEQ/100 ML BAG 50 MEQ IVPB (08:37)
[2023-01-09] MEDS: Normal Saline Flush 10 ML SYR IVP ×4 (08:38→18:41)
[2023-01-09 08:53] LABS: Lab Add On Test COMPLETED
--- NOTE | 2023-01-09 09:20 | INITIAL_ITS ---
Date of service: 01/09/23 Time of Service: 09:20 Care Management Initial Assmt Initial Assessment REASON FOR HOSPITALIZATION:: seizures PREVIOUS FUNCTIONAL STATUS/SOCIAL/FAMILY SUPPORTS:: Ronen lives in [place] in a single family home with his Jessica. They have no children. Ronen is disabled and receives SSDI. He is independent at baseline and does not receive any community services. CURRENT FUNCTIONAL STATUS:: Ronen was sitting up in bed visiting with his father and brother when CM met with him. He was pleasant and agreeable to conversation. Ronen informed CM that his biggest problem at the moment is not having any insurance to cover medications. He stated that he and his make too much money to qualify for Medicaid. CM will send a referral to [facility] for assistance with the insurance and will contact his PCP office in [place] on Wednesday for additional support with the process. Ronen was hospitalized yesterday following a seizure. He has a known seizure disorder but has not been taking his medication because he does not have a drug plan. His medications cost thousands of dollars per month, according to his father. ADVANCE DIRECTIVES:: none on file Has patient been provided with info about the portal/API?: Yes Did the patient sign up for the portal?: Yes CODE STATUS:: Full Code INSURANCE COVERAGE / FINANCIAL ISSUES:: Medicare CURRENT HOME/COMMUNITY SERVICES/EQUIPMENT:: none PRIMARY CARE PHYSICIAN:: Veronika Palmer POTENTIAL DISCHARGE NEEDS:: Follow up with PCP and possibly neurology PATIENT/FAMILY EDUCATION NEEDS:: Review of discharge instructions, medications, limitations, follow up plan, discuss [employer] TRANSPORTATION:: via private vehicle PLAN:: Anticipate Zhang will be discharged home with no new services. He will be referred to [employer] for assistance with insurance for medications, possibly Medicaid. Zhang will follow up with his community providers and plan of care and transport with family. PFSH All Active Problems (Updated 01/09/23 @ 14:39 by Rissa Pop MD) Hypokalemia (Acute) Discharge planning issues (Acute) DVT prophylaxis (Acute) Leukocytosis (Acute) Acute kidney injury (Acute) Rhabdomyolysis (Acute) Metabolic acidosis (Acute) Generalized seizure (Acute) COVID-19 (Acute) AVM (arteriovenous malformation) (Acute) Closed fracture of distal clavicle (Acute 01/09/21) Kidney stone on right side (Acute) Contusion of rib on left side (Acute) Clavicle fracture (Acute) Pre-syncope (Acute) Partial symptomatic epilepsy with complex partial seizures, intractable, with status epilepticus (Acute 10/20/16) 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 and with status migrainosus (Acute 08/13/16) Chronic daily headache (Acute 08/13/16) AVM (arteriovenous malformation) brain (Acute) Medical History (Updated 01/09/23 @ 14:39 by Rissa Pop MD) Leukocytosis Anxiety Seizure disorder Cerebral AVM Surgical History S/P coil embolization of cerebral aneurysm Social History Smoking/Tobacco Use Status: Former Tobacco Use Smoking risk assessment performed?: Yes Alcohol Intake: never Drug use: Daily Substance use type: marijuana Housing: apartment Current gender identity: male Do you feel safe at home: Yes Do you feel safe in your relationship?: Yes
[2023-01-09 09:21] LABS: BE (Venous) -11 mmol/L (-2-3); HCO3 (Venous) 16 mmol/L (23-28); O2 Sat (Venous) 74 %; TCO2 (Venous) 15 mmol/L (24-29); pCO2 (Venous) 35 mmHg (41-51); pH (Venous) 7.27 (7.31-7.41); pO2 (Venous) 44 mmHg
[2023-01-09] MEDS: Topiramate 100 MG TAB 200 MG PO ×2 (09:24→19:53)
--- NOTE | 2023-01-09 09:24 | DI.VRAD_ITS ---
PROCEDURE INFORMATION: Exam: XR Chest Exam date and time: 01/09/2023 9:02 AM Age: 32 years old Clinical indication: Other: Concern for aspiration TECHNIQUE: Imaging protocol: Radiologic exam of the chest. Views: 1 view. COMPARISON: CR XR RIBS LT W PA LAT CHEST 08/01/2020 5:30 PM FINDINGS: Lungs: Unremarkable. No consolidation. Pleural spaces: Unremarkable. No pleural effusion. No pneumothorax. Heart/Mediastinum: Unremarkable. No cardiomegaly. Bones/joints: Unremarkable. IMPRESSION: No acute findings. Dictated and Authenticated by: Aracelis Stoddard MD. Ordering:FIOR Kwok MD
[2023-01-09 09:50] LABS: Procalcitonin 16.9 ng/mL
[2023-01-09 12:25] LABS: BE (Venous) -11 mmol/L (-2-3); HCO3 (Venous) 15 mmol/L (23-28); O2 Sat (Venous) 96 %; TCO2 (Venous) 13 mmol/L (24-29); pCO2 (Venous) 26 mmHg (41-51); pH (Venous) 7.35 (7.31-7.41); pO2 (Venous) 76 mmHg
[2023-01-09 12:55] LABS: Anion Gap 12.7 mmol/L (3-11); BUN 31 mg/dL (7-18); CO2 16.3 mmol/L (21.0-32.0); Calcium 8.1 mg/dL (8.5-10.1); Chloride 105 mmol/L (98-107); Estimated GFR 27.44 (mL/min/1.73m2); Glucose 104 mg/dL (74-106); Sodium 134 mmol/L (136-145)
[2023-01-09 13:13] LABS: Creatine Kinase > 10000 U/L (39-308)
[2023-01-09 13:16] LABS: Bilirubin Negative (Negative); Blood Large (Negative); Clarity Clear (Clear); Glucose Negative (Negative); Ketones Negative (Negative); Leukocyte Esterase Negative (Negative); Nitrite Negative (Negative); Urobilinogen 0.2 mg/dL (Up to 0.2)
[2023-01-09 13:24] LABS: Bacteria Rare HPF (Negative); C & S Indicated? No/Sq. Contamination; Casts Negative LPF (Negative); Crystals Negative HPF (Negative); Epithelial Cells Many HPF (Negative); Mucus Negative (Negative); Other Cells Mod Transitional (Negative)
[2023-01-09] MEDS: POTASSIUM CHLORIDE 20 MEQ/100 ML BAG 25 MEQ IVPB ×3 (13:26→22:17)
--- NOTE | 2023-01-09 13:41 | PGE_ITS ---
Date of Service Date of service: 01/09/23 Time of Service: 13:41 Assessment and Plan Assessment and plan (1) Status epilepticus: Status: Resolved Assessment and plan: The patient was loaded with keppra in the ED and has been seizure free since on his home maintenance medications. Consider neurology consult on Wednesday. (2) Rhabdomyolysis: Status: Acute Assessment and plan: With worsening NOAH. CPK remains >10,000. Continue forced diuresis. Continue bicarb gtt - increase rate, monitor VBG, BMPs, CPKs, Urinary pH. Consider transfer to a tertiary care facility if Cr and CPK do not improve despite bicarbonate therapy. (3) Acute kidney injury: Status: Acute Assessment and plan: With hypokalemia. Due to above - as above. Replete K. (4) Metabolic acidosis: Status: Acute Assessment and plan: In setting of NOAH, rhabdomyolysis, recent seizure. Improving. On bicarbonate therapy. Monitor serial chemistries and BMP. (5) Leukocytosis: Status: Acute Assessment and plan: Reactive due to seizure. No obvious infectious cause. Consider sinusitis. For now, will start with saline nasal spray and monitor WBC, which is already declining w/o antibiotic therapy. Procalcitonin can be elevated in setting of a seizure. (6) Seizure disorder: Assessment and plan: Continue outpatient medications. I am checking levels. I have informed care management of the difficulty affording prescriptions. (7) Hypokalemia: Status: Acute Assessment and plan: Replete, continue to monitor serial chemistries. (8) DVT prophylaxis: Status: Acute Assessment and plan: SCDs Patient is technically ambulatory, but is less ambulatory than his baseline. Will avoid chemical DVT ppx with heparin as heparin can also sometimes contribute to kidney failure. (9) Discharge planning issues: Status: Acute Assessment and plan: Full code Should kidney function continue to worsen despite bicarbonate therapy, may require transfer to a tertiary care facility for hemodialysis. Discussed with the patient, father, , and brother at the bedside. Total Critical Care Time 45 minutes. Subjective Subjective Interval history since last seen: The patient is awake and alert. Denies headache, endorses dizziness when he tries to stand up, denies CP, endorses some SOB, denies nausea. Denies headache. Endorses BLE pain. He does report nasal congestion this morning. He blew his nose in front of me, and the contents were grayish. He states he vapes and smokes canabis. He does wheeze in the morning normally. We discussed how he is wheezing now. States this has happened to him before but that he had not required HD in the past. We discussed the indications for dialysis and how we would know if it's time for transfer. He states that he ran out of his medications 2-3 days ago. His and father are at the bedside. His was not aware of this. His father confirms difficulty affording the medications. The patient is on disability. Exam Narrative Exam Narrative: General: A pleasant male laying comfortably in bed, A&Ox3, sounds congested HEENT: EOMI, MMM, tongue bites evident, no Tenderness to percussion over frontal or maxillary sinuses Heart: RRR, no m/r/g Lungs: expiratory wheezing B Abdomen: soft, nontender, nondistended Extremities: no edema Objective Last Vital Signs Temp 36.9 C 01/09/23 09:30 Pulse 77 01/09/23 09:30 Resp 18 01/09/23 09:30 BP 108/69 01/09/23 09:30 Pulse Ox 99 01/09/23 13:00 Laboratory Results - last 24 hr 01/08/23 01/08/23 01/08/23 16:55 21:55 23:35 WBC 27.70 H* 30.01 H* RBC 5.14 4.87 Hgb 15.4 14.6 Hct 48.2 41.4 MCV 94 85 D MCH 30.0 30.0 MCHC 32.0 35.3 D RDW 13.3 13.1 Plt Count 364 285 MPV 11.1 H 10.4 Immature Gran % See Differential Neutrophils % 49.0 Band Neutrophils % 2 Lymphocytes % 37.0 Atypical Lymphs % 3 Monocytes % 4.0 Eosinophils % 4.0 Basophils % 0.0 Myelocytes % 1 Nucleated RBC % 0.0 Absolute Neutrophils 14.13 H Absolute Lymphocytes 11.08 H Absolute Monocytes 1.11 H Absolute Eosinophils 1.11 H Absolute Basophils 0.00 RBC Morphology Normal VBG pH VBG pCO2 VBG pO2 VBG HCO3 VBG Total CO2 VBG O2 Saturation VBG Base Excess Sodium 139 137 Potassium 4.4 2.8 L* D Chloride 103 106 Carbon Dioxide 5.6 L 14.4 L Anion Gap 30.4 H 16.6 H BUN 11 18 Creatinine 2.5 H 2.2 H Est GFR (CKD-EPI 2020) 34.15 39.81 Glucose 256 H 121 H Calcium 9.4 8.5 Magnesium 4.3 H* 3.2 H Total Bilirubin 0.3 AST 79 H ALT 71 H Alkaline Phosphatase 177 H Creatine Kinase > 07116 H Total Protein 8.1 Albumin 4.3 Procalcitonin Urine Color Urine Clarity Urine pH Ur Specific [place] Urine Protein Urine Ketones Urine Blood Urine Nitrite Urine Bilirubin Urine Urobilinogen Ur Leukocyte Esterase Urine RBC Urine WBC Ur Epithelial Cells Urine Crystals Urine Bacteria Urine Casts Urine Mucus Urine Other Ur Culture Indicated? Urine Glucose COVID-19 Source Nasopharynx SARS-CoV-2 (PCR) Negative Influenza Type A (PCR) Negative Influenza Type B (PCR) Negative RSV (PCR) Negative Add-On Test Request 01/09/23 01/09/23 01/09/23 01:05 06:00 06:00 WBC 24.17 H RBC 4.62 Hgb 13.8 Hct 39.5 L MCV 86 MCH 29.9 MCHC 34.9 RDW 12.7 Plt Count 242 MPV 11.2 H Immature Gran % Neutrophils % Band Neutrophils % Lymphocytes % Atypical Lymphs % Monocytes % Eosinophils % Basophils % Myelocytes % Nucleated RBC % Absolute Neutrophils Absolute Lymphocytes Absolute Monocytes Absolute Eosinophils Absolute Basophils RBC Morphology VBG pH VBG pCO2 VBG pO2 VBG HCO3 VBG Total CO2 VBG O2 Saturation VBG Base Excess Sodium 133 L Potassium 2.9 L* Chloride 103 Carbon Dioxide 15.8 L Anion Gap 14.2 H BUN 27 H Creatinine 2.5 H Est GFR (CKD-EPI 2020) 34.15 Glucose 127 H Calcium 8.4 L Magnesium 3.0 H Total Bilirubin AST ALT Alkaline Phosphatase Creatine Kinase > 39615 H Total Protein Albumin Procalcitonin 16.9 Urine Color Yellow Urine Clarity Clear Urine pH 5.5 Ur Specific [place] 1.025 Urine Protein >=300 H Urine Ketones Negative Urine Blood Large H Urine Nitrite Negative Urine Bilirubin Negative Urine Urobilinogen 0.2 Ur Leukocyte Esterase Negative Urine RBC 10-20 H Urine WBC Negative Ur Epithelial Cells Negative Urine Crystals Negative Urine Bacteria Rare Urine Casts Negative Urine Mucus Negative Urine Other Ur Culture Indicated? No Urine Glucose 100 H COVID-19 Source SARS-CoV-2 (PCR) Influenza Type A (PCR) Influenza Type B (PCR) RSV (PCR) Add-On Test Request DONE COMPLETED 01/09/23 01/09/23 01/09/23 09:14 12:14 13:02 WBC RBC Hgb Hct MCV MCH MCHC RDW Plt Count MPV Immature Gran % Neutrophils % Band Neutrophils % Lymphocytes % Atypical Lymphs % Monocytes % Eosinophils % Basophils % Myelocytes % Nucleated RBC % Absolute Neutrophils Absolute Lymphocytes Absolute Monocytes Absolute Eosinophils Absolute Basophils RBC Morphology VBG pH 7.27 L 7.35 VBG pCO2 35 L 26 L VBG pO2 44 76 VBG HCO3 16 L 15 L VBG Total CO2 15 L 13 L VBG O2 Saturation 74 96 VBG Base Excess -11 L -11 L Sodium 134 L Potassium 3.0 L Chloride 105 Carbon Dioxide 16.3 L Anion Gap 12.7 H BUN 31 H Creatinine 3.0 H Est GFR (CKD-EPI 2020) 27.44 Glucose 104 Calcium 8.1 L Magnesium Total Bilirubin AST ALT Alkaline Phosphatase Creatine Kinase > 08013 H Total Protein Albumin Procalcitonin Urine Color Brown Urine Clarity Clear Urine pH 6.0 Ur Specific [place] 1.010 Urine Protein >=300 H Urine Ketones Negative Urine Blood Large H Urine Nitrite Negative Urine Bilirubin Negative Urine Urobilinogen 0.2 Ur Leukocyte Esterase Negative Urine RBC 5-10 H Urine WBC 5-10 Ur Epithelial Cells Many Urine Crystals Negative Urine Bacteria Rare Urine Casts Negative Urine Mucus Negative Urine Other Mod Transitional Ur Culture Indicated? No/Sq. Contamination Urine Glucose Negative COVID-19 Source SARS-CoV-2 (PCR) Influenza Type A (PCR) Influenza Type B (PCR) RSV (PCR) Add-On Test Request Objective Narrative Objective Narrative: CXR: No acute findings. Time Spent with Patient Time Spent with Patient: 35-49 minutes Time was spent: preparing to see the patient(eg.review tests), obtaining and/or reviewing separately otained hiistory, ordering medications,tests, procedures, referring, communicating with other health emergency care tech, indepentently interpreting results, counseling the patient and care coordination
[2023-01-09] MEDS: Albuterol HFA 8 GM 60 PUFF INH IH (14:54)
--- NOTE | 2023-01-09 16:53 | DI.RAD_ITS ---
Exam(s) XR PORTABLE CHEST AP POST LINE EXAM: XR PORTABLE CHEST AP POST LINE CLINICAL HISTORY: verify CVL placement TECHNIQUE: 2D digital imaging was performed. COMPARISON: CR,XR XR PORTABLE CHEST AP from 01/09/2023 FINDINGS: PICC line has been inserted via the right arm. The the tip lies in the lower SVC. LUNGS: Suboptimally inflated but clear. No pleural abnormality seen. HEART: Normal size. AORTA: Normal diameter. BONES: Unremarkable for age. Soft tissues: Unremarkable. IMPRESSION: Satisfactory PICC line placement DATA REPOSITORY: RADIATION DOSE DELIVERED:
[2023-01-09 17:20] LABS: BE (Venous) -13 mmol/L (-2-3); HCO3 (Venous) 14 mmol/L (23-28); O2 Sat (Venous) 87 %; TCO2 (Venous) 12 mmol/L (24-29); pCO2 (Venous) 26 mmHg (41-51); pH (Venous) 7.32 (7.31-7.41); pO2 (Venous) 52 mmHg
[2023-01-09] MEDS: Ondansetron 4 MG/2 ML VIAL IVP (17:33)
[2023-01-09 17:38] LABS: Anion Gap 13.3 mmol/L (3-11); BUN 32 mg/dL (7-18); CO2 14.7 mmol/L (21.0-32.0); Calcium 7.9 mg/dL (8.5-10.1); Chloride 105 mmol/L (98-107); Estimated GFR 22.05 (mL/min/1.73m2); Glucose 102 mg/dL (74-106); Potassium 3.3 mmol/L (3.5-5.1); Sodium 133 mmol/L (136-145)
[2023-01-09 17:40] LABS: CREATININE 3.6 mg/dL (0.70-1.30)
--- NOTE | 2023-01-09 17:44 | DI.VRAD_ITS ---
PROCEDURE INFORMATION: Exam: XR Chest Exam date and time: 01/09/2023 17:05 Age: 32 years old Clinical indication: Other: Verify cvl placement; Prior surgery; Surgery date: Post-operative (0-2 days) TECHNIQUE: Imaging protocol: Radiologic exam of the chest. Views: 1 view. COMPARISON: CR XR PORTABLE CHEST AP 01/09/2023 09:02 FINDINGS: Tubes, catheters and devices: Right arm PICC tip projecting over the SVC. Lungs: Mild vascular congestion and interstitial crowding are similar.No adriano airspace consolidation on portable imaging. Pleural spaces: No pleural effusion. No pneumothorax. Heart/Mediastinum: No cardiomegaly. Bones/joints: No acute fracture. IMPRESSION: Right arm PICC tip projecting over the SVC. Dictated and Authenticated by: Gina Villafuerte MD. Ordering:FIOR Kwok MD
[2023-01-09 17:47] LABS: Troponin I 1248 ng/L (<or=60)
[2023-01-09 18:23] LABS: Bilirubin Negative (Negative); Blood Large (Negative); Clarity Sl Cloudy (Clear); Glucose Negative (Negative); Ketones Negative (Negative); Leukocyte Esterase Negative (Negative); Nitrite Negative (Negative); Urobilinogen 0.2 mg/dL (Up to 0.2)
[2023-01-09 18:27] LABS: Lab Add On Test DONE
[2023-01-09 18:37] LABS: Bacteria Rare HPF (Negative); C & S Indicated? No; Crystals Negative HPF (Negative); Epithelial Cells Many HPF (Negative); Mucus Trace (Negative); Other Cells Few Transitional (Negative)
[2023-01-09] MEDS: Furosemide 20 MG/2 ML VIAL IVP (18:41)
[2023-01-09 19:21] LABS: Creatine Kinase > 10000 U/L (39-308)
[2023-01-09] MEDS: Acetaminophen 500 MG TAB 1000 MG PO (20:01)
[2023-01-09 22:05] LABS: BE (Venous) -11 mmol/L (-2-3); HCO3 (Venous) 14 mmol/L (23-28); O2 Sat (Venous) 96 %; TCO2 (Venous) 13 mmol/L (24-29); pCO2 (Venous) 25 mmHg (41-51); pH (Venous) 7.36 (7.31-7.41); pO2 (Venous) 72 mmHg
[2023-01-09 22:37] LABS: Anion Gap 10.4 mmol/L (3-11); BUN 33 mg/dL (7-18); CO2 15.6 mmol/L (21.0-32.0); Chloride 106 mmol/L (98-107); Estimated GFR 20.03 (mL/min/1.73m2); Glucose 113 mg/dL (74-106); Potassium 4.3 mmol/L (3.5-5.1); Sodium 132 mmol/L (136-145)
[2023-01-09 22:46] LABS: CREATININE 3.9 mg/dL (0.70-1.30)
[2023-01-09 23:00] LABS: Creatine Kinase > 10000 U/L (39-308)
[2023-01-09 23:13] LABS: Bilirubin Negative (Negative); Blood Large (Negative); Clarity Clear (Clear); Glucose Negative (Negative); Ketones Negative (Negative); Leukocyte Esterase Negative (Negative); Nitrite Negative (Negative); Urobilinogen 0.2 mg/dL (Up to 0.2); pH 5.5 (5-8)
[2023-01-09 23:19] LABS: Bacteria Few HPF (Negative); C & S Indicated? No; Casts Negative LPF (Negative); Crystals Negative HPF (Negative); Epithelial Cells Few HPF (Negative); Mucus Negative (Negative); Other Cells Few Renal (Negative); WBC 0-2 HPF (0-5)
--- NOTE | 2023-01-09 23:48 | NUR.NOTE ---
Nursing Note:2344 Patient had Sodium Bicarbonate running at 150mL/hr when I arrived on shift. When we checo blood for labs at 2200 d/c fluids. Resumed ad 150mL/hr. 2300 charge informed about change in rate of sodium bicarb to 200mL/hr at 1300. Increased rate to 200mL/hr at that time. Infused fluids are at 250ml remaining in bag at this time. Will update to show correct values in the MAR if possible.
[2023-01-10] VITALS (7 sets, daily range): BP systolic 112–132; BP diastolic 65–76; PULSE 77–85; RESP 16–19; TEMP 36.1–38; O2SAT 91–97
--- NOTE | 2023-01-10 | DI.RAD_ITS ---
Exam(s) XR PORTABLE CHEST AP EXAM: XR PORTABLE CHEST AP CLINICAL HISTORY: fever, cough TECHNIQUE: 2D digital imaging was performed. COMPARISON: CR,XR XR PORTABLE CHEST AP POST LINE from 01/09/2023 FINDINGS: There has been no change in the positioning of the PICC line. Multiple leads are coiled over the lo wer chest. LUNGS: Clear. No pleural abnormality seen. HEART: Normal size. AORTA: Normal diameter. BONES: Unremarkable for age. Soft tissues: Unremarkable. IMPRESSION: No acute findings. DATA REPOSITORY: RADIATION DOSE DELIVERED:
[2023-01-10] MEDS: SODIUM BICARBONATE 150 MEQ in DEXTROSE 5%-WATER 850 ML 200 MEQ IV ×2 (00:30→05:05)
[2023-01-10 02:24] LABS: BE (Venous) -6 mmol/L (-2-3); HCO3 (Venous) 19 mmol/L (23-28); O2 Sat (Venous) 97 %; TCO2 (Venous) 17 mmol/L (24-29); pCO2 (Venous) 32 mmHg (41-51); pH (Venous) 7.38 (7.31-7.41); pO2 (Venous) 80 mmHg
[2023-01-10 02:50] LABS: Anion Gap 9.6 mmol/L (3-11); BUN 34 mg/dL (7-18); CO2 20.4 mmol/L (21.0-32.0); Calcium 7.8 mg/dL (8.5-10.1); Chloride 105 mmol/L (98-107); Estimated GFR 17.81 (mL/min/1.73m2); Glucose 110 mg/dL (74-106); Potassium 3.6 mmol/L (3.5-5.1); Sodium 135 mmol/L (136-145)
[2023-01-10 02:51] LABS: CREATININE 4.3 mg/dL (0.70-1.30); Creatine Kinase > 10000 U/L (39-308)
[2023-01-10 03:12] LABS: Bilirubin Negative (Negative); Blood Large (Negative); Clarity Clear (Clear); Glucose Negative (Negative); Ketones Negative (Negative); Leukocyte Esterase Negative (Negative); Nitrite Negative (Negative); Urobilinogen 0.2 mg/dL (Up to 0.2)
[2023-01-10 03:14] LABS: Crystals Negative HPF (Negative); Epithelial Cells Negative HPF (Negative); Other Cells Few Renal (Negative); WBC Negative HPF (0-5)
[2023-01-10 03:15] LABS: Bacteria Rare HPF (Negative); C & S Indicated? No; Casts Negative LPF (Negative); Mucus Negative (Negative)
[2023-01-10 06:19] LABS: BE (Venous) -2 mmol/L (-2-3); HCO3 (Venous) 22 mmol/L (23-28); O2 Sat (Venous) 96 %; TCO2 (Venous) 20 mmol/L (24-29); pCO2 (Venous) 33 mmHg (41-51); pH (Venous) 7.43 (7.31-7.41); pO2 (Venous) 73 mmHg
[2023-01-10 06:22] LABS: Abs Immature Grans 0.06 10^3/uL (0.0-0.06); Absolute Basophil Count 0.07 10^3/uL (0.0-0.2); Absolute Eosinophil Count 0.25 10^3/uL (0.0-0.7); Absolute Lymphocyte Count 1.06 10^3/uL (1.2-3.4); Basophils % 0.6; HCT 36.5 % (40.0-50.0); HGB 12.6 g/dL (13.5-17.5); Immature Grans % 0.5; Lymphocytes % 8.6; MCH 29.6 pg (27.0-33.0); MCHC 34.5 % (32.0-36.0); MCV 86 fL (80-95); MPV 11.2 fL (8.0-11.0); Monocytes % 7.3; Platelet Count 176 10^3/uL (130-400); RBC 4.26 10^6/uL (4.36-5.78); RDW 12.9 % (11.8-14.1); RDW-SD 40.2 fL; WBC 12.38 10^3/uL (4.4-10.8)
[2023-01-10 06:29] LABS: Absolute Neutrophil Count 10.03 10^3/uL (1.2-6.7)
[2023-01-10 06:57] LABS: Anion Gap 7.9 mmol/L (3-11); BUN 34 mg/dL (7-18); CO2 23.1 mmol/L (21.0-32.0); Calcium 7.7 mg/dL (8.5-10.1); Chloride 105 mmol/L (98-107); Estimated GFR 16.01 (mL/min/1.73m2); Glucose 110 mg/dL (74-106); Magnesium 2.4 mg/dL (1.8-2.4); Potassium 3.8 mmol/L (3.5-5.1); Sodium 136 mmol/L (136-145)
[2023-01-10 06:59] LABS: Creatine Kinase > 10000 U/L (39-308)
[2023-01-10 07:00] LABS: CREATININE 4.7 mg/dL (0.70-1.30)
[2023-01-10 07:03] LABS: Bilirubin Negative (Negative); Blood Large (Negative); Clarity Clear (Clear); Glucose Negative (Negative); Ketones Negative (Negative); Leukocyte Esterase Negative (Negative); Nitrite Negative (Negative); Urobilinogen 0.2 mg/dL (Up to 0.2)
[2023-01-10 07:04] LABS: Bacteria Rare HPF (Negative); C & S Indicated? No; Casts Negative LPF (Negative); Crystals Negative HPF (Negative); Epithelial Cells Negative HPF (Negative); Mucus Negative (Negative); WBC Negative HPF (0-5)
[2023-01-10] MEDS: Lactated Ringers 1,000 ML 200 ML IV ×3 (08:19→21:57)
[2023-01-10] MEDS: Lacosamide 100 MG TAB 200 MG PO (08:37)
[2023-01-10] MEDS: clonazePAM 1 MG TAB PO (08:38)
[2023-01-10] MEDS: Citalopram 10 MG TAB PO (08:38)
[2023-01-10] MEDS: Topiramate 100 MG TAB 200 MG PO (08:38)
[2023-01-10] MEDS: lamoTRIgine 100 MG TAB 300 MG PO ×2 (08:43→20:09)
[2023-01-10] MEDS: Furosemide 20 MG/2 ML VIAL IVP (09:05)
[2023-01-10] MEDS: Ondansetron 4 MG/2 ML VIAL IVP (09:45)
[2023-01-10] MEDS: Benzocaine/Menthol LOZG 15/BOX 1 EACH SUC (09:46)
[2023-01-10] MEDS: oxyCODONE 5 MG TAB PO (11:21)
[2023-01-10] MEDS: Acetaminophen 500 MG TAB 1000 MG PO ×2 (11:22→18:28)
[2023-01-10 12:45] LABS: BE (Venous) -2 mmol/L (-2-3); HCO3 (Venous) 23 mmol/L (23-28); O2 Sat (Venous) 96 %; TCO2 (Venous) 20 mmol/L (24-29); pCO2 (Venous) 36 mmHg (41-51); pH (Venous) 7.41 (7.31-7.41); pO2 (Venous) 76 mmHg
[2023-01-10 13:38] LABS: Anion Gap 10.1 mmol/L (3-11); BUN 35 mg/dL (7-18); CO2 21.9 mmol/L (21.0-32.0); Calcium 7.9 mg/dL (8.5-10.1); Chloride 103 mmol/L (98-107); Estimated GFR 14.18 (mL/min/1.73m2); Glucose 115 mg/dL (74-106); Potassium 3.1 mmol/L (3.5-5.1); Sodium 135 mmol/L (136-145)
[2023-01-10 13:39] LABS: Creatine Kinase > 10000 U/L (39-308)
[2023-01-10 13:40] LABS: CREATININE 5.2 mg/dL (0.70-1.30)
[2023-01-10 13:47] LABS: COVID-19 PCR Negative (Negative); Influenza A PCR Negative (Negative); Influenza B PCR Negative (Negative); RSV PCR Negative (Negative); Source Nasopharynx
--- NOTE | 2023-01-10 14:57 | W.PM.PROGNOT ---
Date of Service Date of service: 01/10/23 Time of Service: 14:59 Assessment and Plan Assessment and plan (1) Status epilepticus: Status: Resolved Assessment and plan: The patient was loaded with keppra in the ED and has been seizure free since on his home maintenance medications. We did have to adjust doses on medications today due to his renal function. Obtain a neurology consult tomorrow. (2) Rhabdomyolysis: Status: Acute Assessment and plan: With worsening NOAH. CPK remains >10,000. Continue forced diuresis. Bicarbonate drip no longer able to be continued. Not meeting criteria for acute hemodialysis today, per [facility] nephrology, since he has a good UOP. Continue aggressive IVF. (3) Acute kidney injury: Status: Acute Assessment and plan: With hypokalemia. Due to above - as above. Replete K. (4) Metabolic acidosis: Status: Acute Assessment and plan: In setting of NOAH, rhabdomyolysis, recent seizure. Resolved. Monitor now off of the bicarbonate therapy. Monitor serial chemistries. (5) Leukocytosis: Status: Acute Assessment and plan: Reactive due to seizure. Febrile today, though leucocytosis is actually better. We obtained blood cultures, repeated CXR. UA negative. FLUVID negative. Rapid strep negative. I am repeating procalcitonin. Consider empiric abx. (6) Seizure disorder: Assessment and plan: Continue outpatient medications. I am checking levels. I have informed care management of the difficulty affording prescriptions. Consult neurology. (7) Hypokalemia: Status: Acute Assessment and plan: Replete, continue to monitor serial chemistries. (8) DVT prophylaxis: Status: Acute Assessment and plan: SCDs Patient is technically ambulatory, but is less ambulatory than his baseline. Will avoid chemical DVT ppx with heparin as heparin can also sometimes contribute to kidney failure. (9) Discharge planning issues: Status: Acute Assessment and plan: Full code Should kidney function continue to worsen and UOP drop off, may require transfer to a tertiary care facility for hemodialysis. Subjective Subjective Interval history since last seen: Mr Voss had some nausea last night but he was not nauseated this morning. No dizziness, CP. Does report a sore throat (rapid strep negative), some SOB and a cough (nonproductive). No n/v. Febrile to 38.0. UOP 3050 cc today so far (only 2763 cc's in documented). Bicarbonate drip was turned off this am due to bicarb level being 23.1 on am chemistry. CPK is still >10,000. Cr up to 4.7. Discussed case with the patient with my recommendation for transfer for an evaluation for HD. He agreed. Spoke with [facility]: no beds there or at the [facility]. Spoke with the patient again: instead of [facility], he and his felt comfortable with [facility]. Spoke with [facility]: no beds on main campus - only a bed at a [facility] would potentially open up this afternoon. The patient was not interested in that transfer and requested [facility] instead. Spoke with [facility]: only open to emergent transfers. Discussed the case with [facility] nephrology: Dr Abbasi feels the patient does not need emergent dialysis, that she would continue IVF +/- Furosemide if the patient gets fluid overloaded. She would not do anything differently us at this time. Emergent dialysis would only be considered if the patient stopped making urine. We were advised to call back should the situation change. I discussed this with the patient and he felt comfortable staying at our facility. He is s/p PICC line yesterday. Exam Narrative Exam Narrative: General: A pleasant male laying comfortably in bed, A&Ox3, sounds Less congested HEENT: EOMI, MMM, does have some mild pharyngeal erythema, tongue bites evident Heart: RRR, no m/r/g Lungs: expiratory wheezing B - improved from yesterday, worse on the L Abdomen: soft, nontender, nondistended Extremities: no edema; LUE PICC line site - c/d/i Objective Last Vital Signs Temp 38.0 C H 01/10/23 11:30 Pulse 77 01/10/23 11:30 Resp 19 01/10/23 11:30 BP 120/75 01/10/23 11:30 Pulse Ox 96 01/10/23 11:30 Laboratory Results - last 24 hr 01/09/23 01/09/23 01/09/23 12:14 17:13 17:52 WBC RBC Hgb Hct MCV MCH MCHC RDW Plt Count MPV Immature Gran % Neutrophils % Lymphocytes % Monocytes % Eosinophils % Basophils % Nucleated RBC % Absolute Neutrophils Absolute Lymphocytes Absolute Monocytes Absolute Eosinophils Absolute Basophils VBG pH 7.32 VBG pCO2 26 L VBG pO2 52 VBG HCO3 14 L VBG Total CO2 12 L VBG O2 Saturation 87 VBG Base Excess -13 L Sodium 133 L Potassium 3.3 L Chloride 105 Carbon Dioxide 14.7 L Anion Gap 13.3 H BUN 32 H Creatinine 3.6 H* Est GFR (CKD-EPI 2020) 22.05 Glucose 102 Calcium 7.9 L Magnesium Creatine Kinase > 23251 H Troponin I 1248 H* Urine Color Cancelled Urine Clarity Cancelled Urine pH Cancelled Ur Specific [place] Cancelled Urine Protein Cancelled Urine Ketones Cancelled Urine Blood Cancelled Urine Nitrite Cancelled Urine Bilirubin Cancelled Urine Urobilinogen Cancelled Ur Leukocyte Esterase Cancelled Urine RBC Urine WBC Ur Epithelial Cells Urine Crystals Urine Bacteria Urine Casts Urine Mucus Urine Other Ur Culture Indicated? Urine Glucose Cancelled COVID-19 Source SARS-CoV-2 (PCR) Influenza Type A (PCR) Influenza Type B (PCR) RSV (PCR) Add-On Test Request DONE 01/09/23 01/09/23 01/09/23 17:55 22:00 23:00 WBC RBC Hgb Hct MCV MCH MCHC RDW Plt Count MPV Immature Gran % Neutrophils % Lymphocytes % Monocytes % Eosinophils % Basophils % Nucleated RBC % Absolute Neutrophils Absolute Lymphocytes Absolute Monocytes Absolute Eosinophils Absolute Basophils VBG pH 7.36 VBG pCO2 25 L VBG pO2 72 VBG HCO3 14 L VBG Total CO2 13 L VBG O2 Saturation 96 VBG Base Excess -11 L Sodium 132 L Potassium 4.3 D Chloride 106 Carbon Dioxide 15.6 L Anion Gap 10.4 BUN 33 H Creatinine 3.9 H* Est GFR (CKD-EPI 2020) 20.03 Glucose 113 H Calcium 8.0 L Magnesium Creatine Kinase > 51001 H Troponin I Urine Color [place] Yellow Urine Clarity Sl Cloudy Clear Urine pH 6.0 5.5 Ur Specific [place] 1.010 1.010 Urine Protein 100 H 100 H Urine Ketones Negative Negative Urine Blood Large H Large H Urine Nitrite Negative Negative Urine Bilirubin Negative Negative Urine Urobilinogen 0.2 0.2 Ur Leukocyte Esterase Negative Negative Urine RBC 10-20 H 5-10 H Urine WBC 3-5 0-2 Ur Epithelial Cells Many Few Urine Crystals Negative Negative Urine Bacteria Rare Few Urine Casts Negative Urine Mucus Trace Negative Urine Other Few Transitional Few Renal Ur Culture Indicated? No No Urine Glucose Negative Negative COVID-19 Source SARS-CoV-2 (PCR) Influenza Type A (PCR) Influenza Type B (PCR) RSV (PCR) Add-On Test Request 01/10/23 01/10/23 01/10/23 02:15 06:00 06:49 WBC 12.38 H RBC 4.26 L Hgb 12.6 L Hct 36.5 L MCV 86 MCH 29.6 MCHC 34.5 RDW 12.9 Plt Count 176 MPV 11.2 H Immature Gran % 0.5 Neutrophils % 81.0 Lymphocytes % 8.6 Monocytes % 7.3 Eosinophils % 2.0 Basophils % 0.6 Nucleated RBC % 0.0 Absolute Neutrophils 10.03 H Absolute Lymphocytes 1.06 L Absolute Monocytes 0.90 H Absolute Eosinophils 0.25 Absolute Basophils 0.07 VBG pH 7.38 7.43 H VBG pCO2 32 L 33 L VBG pO2 80 73 VBG HCO3 19 L 22 L VBG Total CO2 17 L 20 L VBG O2 Saturation 97 96 VBG Base Excess -6 L -2 Sodium 135 L 136 Potassium 3.6 3.8 Chloride 105 105 Carbon Dioxide 20.4 L 23.1 Anion Gap 9.6 7.9 BUN 34 H 34 H Creatinine 4.3 H* 4.7 H* Est GFR (CKD-EPI 2020) 17.81 16.01 Glucose 110 H 110 H Calcium 7.8 L 7.7 L Magnesium 2.4 Creatine Kinase > 16622 H > 41226 H Troponin I Urine Color Yellow Yellow Urine Clarity Clear Clear Urine pH 6.0 7.0 Ur Specific [place] 1.010 1.020 Urine Protein 100 H 30 H Urine Ketones Negative Negative Urine Blood Large H Large H Urine Nitrite Negative Negative Urine Bilirubin Negative Negative Urine Urobilinogen 0.2 0.2 Ur Leukocyte Esterase Negative Negative Urine RBC 5-10 H 5-10 H Urine WBC Negative Negative Ur Epithelial Cells Negative Negative Urine Crystals Negative Negative Urine Bacteria Rare Rare Urine Casts Negative Negative Urine Mucus Negative Negative Urine Other Few Renal Ur Culture Indicated? No No Urine Glucose Negative Negative COVID-19 Source SARS-CoV-2 (PCR) Influenza Type A (PCR) Influenza Type B (PCR) RSV (PCR) Add-On Test Request 01/10/23 01/10/23 01/10/23 12:15 12:30 13:05 WBC RBC Hgb Hct MCV MCH MCHC RDW Plt Count MPV Immature Gran % Neutrophils % Lymphocytes % Monocytes % Eosinophils % Basophils % Nucleated RBC % Absolute Neutrophils Absolute Lymphocytes Absolute Monocytes Absolute Eosinophils Absolute Basophils VBG pH 7.41 VBG pCO2 36 L VBG pO2 76 VBG HCO3 23 VBG Total CO2 20 L VBG O2 Saturation 96 VBG Base Excess -2 Sodium Cancelled 135 L Potassium Cancelled 3.1 L Chloride Cancelled 103 Carbon Dioxide Cancelled 21.9 Anion Gap Cancelled 10.1 BUN Cancelled 35 H Creatinine Cancelled 5.2 H* Est GFR (CKD-EPI 2020) Cancelled 14.18 Glucose Cancelled 115 H Calcium Cancelled 7.9 L Magnesium Creatine Kinase Cancelled > 13414 H Troponin I Urine Color Urine Clarity Urine pH Ur Specific [place] Urine Protein Urine Ketones Urine Blood Urine Nitrite Urine Bilirubin Urine Urobilinogen Ur Leukocyte Esterase Urine RBC Urine WBC Ur Epithelial Cells Urine Crystals Urine Bacteria Urine Casts Urine Mucus Urine Other Ur Culture Indicated? Urine Glucose COVID-19 Source Nasopharynx SARS-CoV-2 (PCR) Negative Influenza Type A (PCR) Negative Influenza Type B (PCR) Negative RSV (PCR) Negative Add-On Test Request Objective Narrative Objective Narrative: CXR: official read pending. Normal chest, per my read. Time Spent with Patient Time Spent with Patient: >50 minutes Time was spent: preparing to see the patient(eg.review tests), obtaining and/or reviewing separately otained hiistory, ordering medications,tests, procedures, referring, communicating with other health child care centre manager, indepentently interpreting results, counseling the patient and care coordination
--- NOTE | 2023-01-10 15:15 | DI.VRAD_ITS ---
PROCEDURE INFORMATION: Exam: XR Chest Exam date and time: 01/10/2023 1:58 PM Age: 32 years old Clinical indication: Cough and fever TECHNIQUE: Imaging protocol: Radiologic exam of the chest. Views: 1 view. COMPARISON: CR XR PORTABLE CHEST AP POST LINE 01/09/2023 5:05 PM FINDINGS: Tubes, catheters and devices: A right peripherally inserted central venous catheter lies with its tip in the superior vena cava.. Lungs: Unremarkable. No consolidation. Pleural spaces: Unremarkable. No pleural effusion. No pneumothorax. Heart/Mediastinum: Unremarkable. No cardiomegaly. Bones/joints: Unremarkable. IMPRESSION: A right peripherally inserted central venous catheter lies with its tip in the superior vena cava.. No focal consolidation Dictated and Authenticated by: Juan Pablo Pollock MD. Ordering:FIOR Kwok MD
[2023-01-10] MEDS: POTASSIUM CHLORIDE 20 MEQ/100 ML BAG 50 MEQ IVPB (15:46)
[2023-01-10 16:01] LABS: Procalcitonin 15.7 ng/mL
[2023-01-10] MEDS: Nicotine 2 MG GUM CH (17:41)
[2023-01-10 18:02] LABS: Lab Add On Test DONE
[2023-01-10] MEDS: oxyCODONE 5 MG TAB 2.5 MG PO (18:27)
[2023-01-10 19:23] LABS: Anion Gap 8.5 mmol/L (3-11); BUN 37 mg/dL (7-18); CO2 24.5 mmol/L (21.0-32.0); Calcium 8.1 mg/dL (8.5-10.1); Chloride 102 mmol/L (98-107); Estimated GFR 13.26 (mL/min/1.73m2); Glucose 108 mg/dL (74-106); Potassium 3.3 mmol/L (3.5-5.1); Sodium 135 mmol/L (136-145)
[2023-01-10 19:24] LABS: CREATININE 5.5 mg/dL (0.70-1.30)
[2023-01-10 19:25] LABS: Creatine Kinase > 10000 U/L (39-308)
[2023-01-10] MEDS: Topiramate 100 MG TAB PO (20:09)
[2023-01-10] MEDS: Lacosamide 100 MG TAB PO (20:10)
[2023-01-10] MEDS: clonazePAM 1 MG TAB 2 MG PO (22:10)
[2023-01-10 22:42] LABS: Anion Gap 10.6 mmol/L (3-11); BUN 32 mg/dL (7-18); CO2 20.4 mmol/L (21.0-32.0); Calcium 7.7 mg/dL (8.5-10.1); Chloride 105 mmol/L (98-107); Estimated GFR 16.01 (mL/min/1.73m2); Glucose 95 mg/dL (74-106); Potassium 3.3 mmol/L (3.5-5.1); Sodium 136 mmol/L (136-145)
[2023-01-10 22:48] LABS: CREATININE 4.7 mg/dL (0.70-1.30)
[2023-01-10 23:03] LABS: Creatine Kinase > 10000 U/L (39-308)
[2023-01-11] VITALS (7 sets, daily range): BP systolic 113–133; BP diastolic 72–78; PULSE 75–90; RESP 16–18; TEMP 36.1–38.1; O2SAT 94–97
[2023-01-11] MEDS: Lactated Ringers 1,000 ML 200 ML IV ×4 (02:13→23:02)
[2023-01-11 03:03] LABS: Abs Immature Grans 0.05 10^3/uL (0.0-0.06); Absolute Basophil Count 0.04 10^3/uL (0.0-0.2); Absolute Eosinophil Count 0.34 10^3/uL (0.0-0.7); Absolute Lymphocyte Count 1.15 10^3/uL (1.2-3.4); Absolute Monocyte Count 0.71 10^3/uL (0.1-0.8); Absolute Neutrophil Count 6.75 10^3/uL (1.2-6.7); Basophils % 0.4; Eosinophils % 3.8; HGB 9.9 g/dL (13.5-17.5); Immature Grans % 0.6; Lymphocytes % 12.7; MCH 30.2 pg (27.0-33.0); MCHC 35.4 % (32.0-36.0); MCV 85 fL (80-95); MPV 11.4 fL (8.0-11.0); Monocytes % 7.9; Neutrophils % 74.6; Platelet Count 127 10^3/uL (130-400); RBC 3.28 10^6/uL (4.36-5.78); RDW 13.2 % (11.8-14.1); RDW-SD 41.1 fL; WBC 9.04 10^3/uL (4.4-10.8)
[2023-01-11 03:29] LABS: Anion Gap 11.8 mmol/L (3-11); BUN 32 mg/dL (7-18); CO2 20.2 mmol/L (21.0-32.0); Calcium 7.6 mg/dL (8.5-10.1); Chloride 106 mmol/L (98-107); Estimated GFR 16.01 (mL/min/1.73m2); Glucose 93 mg/dL (74-106); Magnesium 1.7 mg/dL (1.8-2.4); Potassium 3.5 mmol/L (3.5-5.1); Sodium 138 mmol/L (136-145)
[2023-01-11 03:38] LABS: CREATININE 4.7 mg/dL (0.70-1.30)
[2023-01-11 03:49] LABS: Creatine Kinase > 10000 U/L (39-308)
[2023-01-11 06:27] LABS: Anion Gap 9.4 mmol/L (3-11); BUN 32 mg/dL (7-18); CO2 20.6 mmol/L (21.0-32.0); Calcium 7.6 mg/dL (8.5-10.1); Chloride 106 mmol/L (98-107); Estimated GFR 15.23 (mL/min/1.73m2); Glucose 81 mg/dL (74-106); Potassium 3.5 mmol/L (3.5-5.1); Sodium 136 mmol/L (136-145)
[2023-01-11 06:35] LABS: CREATININE 4.9 mg/dL (0.70-1.30)
[2023-01-11] MEDS: Topiramate 100 MG TAB PO ×2 (08:34→20:03)
[2023-01-11] MEDS: Nicotine 2 MG GUM CH (08:34)
[2023-01-11] MEDS: Citalopram 10 MG TAB PO (08:34)
[2023-01-11] MEDS: clonazePAM 1 MG TAB PO ×2 (08:34→09:34)
[2023-01-11] MEDS: lamoTRIgine 100 MG TAB 300 MG PO ×2 (08:35→20:02)
[2023-01-11] MEDS: Lacosamide 100 MG TAB 200 MG PO (08:35)
--- NOTE | 2023-01-11 08:45 | RT.EKG_ITS ---
APPROVED REPORT Exam: Resting ECG Reason for Exam: chest discomfort Patient Location: I HR:82 bpm ECG Measurements Heart Rate 82 AXIS AR 146 P 51 QRSd 112 QRS 78 QT 366 T 24 QTc 428 Conclusion Sinus rhythm...normal P axis, V-rate 50- 99 Incomplete right bundle branch block...QRSd >112, terminal axis(90,270)
[2023-01-11] MEDS: hydrOXYzine HCL 25 MG TAB PO (09:33)
--- NOTE | 2023-01-11 09:50 | PDOC.CMPRO ---
Date of service: 01/11/23 Time of Service: 09:50 Care Management Progress Note Progress Note Text Progress Note Text: S/O:Ronen was lying in bed when CM met with him. He stated that he continues to feel well and has had no seizures. He did state that something odd happened with his vision this morning where he experienced double vision for a period. He informed CM that he has experienced that before and a seizure followed, but no seizure followed today. Ronen still has no drug coverage for his prescriptions. CM contacted [employer] to see if he is eligible for any prescription drug plans. They suggested a referral to [facility] [place] [facility] to get a part D medicare plan. They explained that he may be eligible for [employer] which can cover the premium but he needs Part D first. JUAN sent the referral and informed Ronen to expect a call for [facility] sometime this week. A: Ronen is a 32 year old man admitted with seizures P:Anticipate Ronen will be discharged home with no new services. A referral has been sent to [facility] for assistance with insurance for medications, medicare Part D. Ronen will follow up with his community providers and plan of care and transport with family.
[2023-01-11] MEDS: MAGNESIUM SULFATE 2 GM/50 ML BAG IVPB (10:20)
[2023-01-11 10:25] LABS: NT-proBNP 1775 pg/mL (<300)
[2023-01-11 10:28] LABS: Troponin I 73 ng/L (<or=60)
[2023-01-11] MEDS: DOXYCYCLINE 100 MG in Normal Saline 100 ML IVPB ×2 (11:06→20:03)
[2023-01-11] MEDS: cefTRIAXone 2 GM/50 ML BAG IVPB ×2 (13:10→20:03)
--- NOTE | 2023-01-11 14:50 | W.PM.PROGNOT ---
Date of Service Date of service: 01/11/23 Time of Service: 09:30 Assessment and Plan Assessment and plan (1) Status epilepticus: Status: Resolved Assessment and plan: The patient was loaded with keppra in the ED and has been seizure free since on his home maintenance medications. Today he had aura as he gets prior to seizures. He states that keppra makes him very sick (nausea, headache). He was given a dose of clonazepam and hydroxyzine as per his usual home routine. Neurology is consulted. (2) Rhabdomyolysis: Status: Acute Assessment and plan: NOAH finally started to improve. Off of bicarb drip. Will attempt to match ins and outs. He is net 2 L negative today - will give a bolus of 1L of LR right now to ensure that he does not get fluid overloaded prior to the 2nd L. Continue MIVF. Trend chemistries and CPK. CPK remains >10,000. Continue forced diuresis. Not meeting criteria for acute hemodialysis today, per [facility] nephrology, since he has a good UOP. Continue aggressive IVF. (3) Acute kidney injury: Status: Acute Assessment and plan: With hypokalemia. Due to above - as above. Replete K. (4) Acute bronchitis: Status: Acute Assessment and plan: Started on empiric doxycycline/ceftriaxone. Monitor WBC, procalcitonin. (5) Metabolic acidosis: Status: Acute Assessment and plan: In setting of NOAH, rhabdomyolysis, recent seizure. Resolved. Monitor now off of the bicarbonate therapy. Monitor serial chemistries. (6) Leukocytosis: Status: Acute Assessment and plan: Reactive due to seizure. We did initiate antibiotics for a bronchitis today, which could be contributing. We obtained blood cultures, repeated CXR. UA negative. FLUVID negative. Rapid strep negative. (7) Seizure disorder: Assessment and plan: Continue outpatient medications. Levels are pending. I have informed care management of the difficulty affording prescriptions. Await neurology consult. (8) Hypokalemia: Status: Resolved Assessment and plan: Resolved. MOnitor serial chemistries. (9) DVT prophylaxis: Status: Acute Assessment and plan: SCDs Patient is technically ambulatory, but is less ambulatory than his baseline. Will avoid chemical DVT ppx with heparin as heparin can also sometimes contribute to kidney failure. (10) Discharge planning issues: Status: Acute Assessment and plan: Full code Should kidney function continue to worsen and UOP drop off, may require transfer to a tertiary care facility for hemodialysis. Subjective Subjective Interval history since last seen: Overall feels better - has more energy today. Reported chest tightness. Denies dizziness, CP, reports some SOB, denies n/v. He reported having double vision which is his aura prior to having a seizure, he stated. Usually he takes 1 mg of clonazepam and hydroxyzine 25 mg when that happens and it helps. Exam Narrative Exam Narrative: General: A pleasant male laying comfortably in bed, A&Ox3, looks better HEENT: EOMI, MMM Heart: RRR, no m/r/g Lungs: improved expiratory wheezing B Abdomen: soft, nontender, nondistended Extremities: no edema; LUE PICC line site - c/d/i Objective Last Vital Signs Temp 37.5 C 01/11/23 11:44 Pulse 84 01/11/23 11:44 Resp 16 01/11/23 11:44 BP 133/78 01/11/23 11:44 Pulse Ox 97 01/11/23 11:44 Laboratory Results - last 24 hr 01/10/23 01/10/23 01/10/23 13:05 17:09 18:33 WBC RBC Hgb Hct MCV MCH MCHC RDW Plt Count MPV Immature Gran % Neutrophils % Lymphocytes % Monocytes % Eosinophils % Basophils % Nucleated RBC % Absolute Neutrophils Absolute Lymphocytes Absolute Monocytes Absolute Eosinophils Absolute Basophils Sodium Cancelled 135 L Potassium Cancelled 3.3 L Chloride Cancelled 102 Carbon Dioxide Cancelled 24.5 Anion Gap Cancelled 8.5 BUN Cancelled 37 H Creatinine Cancelled 5.5 H* Est GFR (CKD-EPI 2020) Cancelled 13.26 Glucose Cancelled 108 H Calcium Cancelled 8.1 L Magnesium Creatine Kinase Cancelled > 87488 H Troponin I NT-Pro-B Natriuret Pep Procalcitonin 15.7 Add-On Test Request DONE 01/10/23 01/11/23 01/11/23 22:10 02:55 05:35 WBC 9.04 RBC 3.28 L Hgb 9.9 L D Hct 28.0 L MCV 85 MCH 30.2 MCHC 35.4 RDW 13.2 Plt Count 127 L MPV 11.4 H Immature Gran % 0.6 Neutrophils % 74.6 Lymphocytes % 12.7 Monocytes % 7.9 Eosinophils % 3.8 Basophils % 0.4 Nucleated RBC % 0.0 Absolute Neutrophils 6.75 H Absolute Lymphocytes 1.15 L Absolute Monocytes 0.71 Absolute Eosinophils 0.34 Absolute Basophils 0.04 Sodium 136 138 Cancelled Potassium 3.3 L 3.5 Cancelled Chloride 105 106 Cancelled Carbon Dioxide 20.4 L 20.2 L Cancelled Anion Gap 10.6 11.8 H Cancelled BUN 32 H 32 H Cancelled Creatinine 4.7 H* 4.7 H* Cancelled Est GFR (CKD-EPI 2020) 16.01 16.01 Cancelled Glucose 95 93 Cancelled Calcium 7.7 L 7.6 L Cancelled Magnesium 1.7 L Creatine Kinase > 76195 H > 15413 H Troponin I NT-Pro-B Natriuret Pep Procalcitonin Add-On Test Request 01/11/23 01/11/23 06:00 09:45 WBC RBC Hgb Hct MCV MCH MCHC RDW Plt Count MPV Immature Gran % Neutrophils % Lymphocytes % Monocytes % Eosinophils % Basophils % Nucleated RBC % Absolute Neutrophils Absolute Lymphocytes Absolute Monocytes Absolute Eosinophils Absolute Basophils Sodium 136 Potassium 3.5 Chloride 106 Carbon Dioxide 20.6 L Anion Gap 9.4 BUN 32 H Creatinine 4.9 H* Est GFR (CKD-EPI 2020) 15.23 Glucose 81 Calcium 7.6 L Magnesium Creatine Kinase Troponin I 73 H* NT-Pro-B Natriuret Pep 1775 H Procalcitonin Add-On Test Request Time Spent with Patient Time Spent with Patient: 35-49 minutes Time was spent: preparing to see the patient(eg.review tests), obtaining and/or reviewing separately otained hiistory, ordering medications,tests, procedures, referring, communicating with other health post acute care registered nurse, indepentently interpreting results, counseling the patient and care coordination
[2023-01-11] MEDS: Acetaminophen 500 MG TAB 1000 MG PO (15:39)
[2023-01-11] MEDS: Lactated Ringers 1,000 ML 1000 ML IV ×2 (15:40→17:25)
[2023-01-11 16:29] LABS: Lamotrigine 3.9 mcg/mL (3.0-15.0)
[2023-01-11 16:42] LABS: Anion Gap 8.3 mmol/L (3-11); BUN 36 mg/dL (7-18); CO2 23.7 mmol/L (21.0-32.0); Calcium 8.1 mg/dL (8.5-10.1); Chloride 107 mmol/L (98-107); Estimated GFR 11.05 (mL/min/1.73m2); Glucose 148 mg/dL (74-106); Potassium 3.4 mmol/L (3.5-5.1); Sodium 139 mmol/L (136-145)
[2023-01-11 16:47] LABS: CREATININE 6.4 mg/dL (0.70-1.30)
[2023-01-11 16:49] LABS: Troponin I 61 ng/L (<or=60)
[2023-01-11 17:16] LABS: Creatine Kinase > 10000 U/L (39-308)
[2023-01-11] MEDS: Potassium Chloride 20 MEQ TABCR PO (17:48)
[2023-01-11 17:58] LABS: Bilirubin Negative (Negative); Blood Large (Negative); Clarity Clear (Clear); Glucose Negative (Negative); Ketones Negative (Negative); Leukocyte Esterase Negative (Negative); Nitrite Negative (Negative); Specific Gravity 1.015 (1.005-1.025); pH 7.5 (5-8)
[2023-01-11 18:06] LABS: Bacteria Rare HPF (Negative); Epithelial Cells Rare HPF (Negative)
[2023-01-11 18:07] LABS: C & S Indicated? Yes; Casts 0-2 Coarse Granular LPF (Negative); Crystals Negative HPF (Negative); Mucus Trace (Negative)
[2023-01-11 18:43] LABS: Anion Gap 6.5 mmol/L (3-11); BUN 34 mg/dL (7-18); CO2 23.5 mmol/L (21.0-32.0); Calcium 8.1 mg/dL (8.5-10.1); Chloride 107 mmol/L (98-107); Estimated GFR 11.94 (mL/min/1.73m2); Glucose 124 mg/dL (74-106); Potassium 3.8 mmol/L (3.5-5.1); Sodium 137 mmol/L (136-145)
[2023-01-11] MEDS: clonazePAM 1 MG TAB 2 MG PO (20:02)
[2023-01-11] MEDS: Lacosamide 100 MG TAB PO (20:03)
[2023-01-11] MEDS: Ondansetron 4 MG/2 ML VIAL IVP (20:18)
[2023-01-11 20:27] LABS: Topiramate 6.6 mcg/mL
--- NOTE | 2023-01-11 21:00 | NUR.NOTE ---
Nursing Note:patient stated that he would like to the doctors here to get in contact with his neurologist [facility], michele rosado, to explain his recent admission and treatments
[2023-01-12] VITALS (8 sets, daily range): BP systolic 128–135; BP diastolic 73–86; PULSE 39–94; RESP 12–19; TEMP 36.8–38.1; O2SAT 94–98
--- NOTE | 2023-01-12 | DI.RAD_ITS ---
Exam(s) XR HIP PELVIS ADULT BL EXAM: XR HIP PELVIS ADULT BL CLINICAL HISTORY: B hip pain, history of stress fractures. TECHNIQUE: 2D digital imaging was performed of the pelvis and bilateral hips. Five images were obta ined. AP pelvis and lateral views of both hips were obtained. COMPARISON: No exams were available for comparison FINDINGS: BONES: No acute fracture is present. No bony destructive lesion is seen. JOINTS: No dislocation present. SOFT TISSUE: Normal. IMPRESSION: Unrmarkable radiographs of bilat hips. Unremarkable radiographs of the pelvis DATA REPOSITORY: RADIATION DOSE DELIVERED:
--- NOTE | 2023-01-12 | DI.US_ITS ---
Exam(s) US EXTREMITY VENOUS BI EXAM: US EXTREMITY VENOUS BI CLINICAL HISTORY: BLE pain, concern for a DVT. TECHNIQUE: Bilateral lower extremity venous ultrasound performed using grayscale, color-flow, and sp ectral Doppler analysis. COMPARISON: No exams were available for comparison FINDINGS: The right common femoral, femoral and popliteal veins demonstrate normal compressibility, augmentatio n, and color Doppler. The posterior tibial and peroneal veins are patent. The saphenofemoral junctio n is unremarkable. There is no evidence of a Bustos's cyst. The soft tissues are unremarkable. The left common femoral, femoral and popliteal veins demonstrate normal compressibility, augmentation , and color Doppler. The posterior tibial and peroneal veins are patent. The saphenofemoral junction is unremarkable. There is no evidence of a Bustos's cyst. The soft tissues are unremarkable. IMPRESSION: 1. No evidence of a right lower extremity DVT. 2. No evidence of a left lower extremity DVT. DATA REPOSITORY:
[2023-01-12] MEDS: Lactated Ringers 1,000 ML 200 ML IV ×4 (04:11→23:02)
[2023-01-12 07:36] LABS: Abs Immature Grans 0.03 10^3/uL (0.0-0.06); Absolute Basophil Count 0.04 10^3/uL (0.0-0.2); Absolute Eosinophil Count 0.48 10^3/uL (0.0-0.7); Absolute Lymphocyte Count 0.99 10^3/uL (1.2-3.4); Absolute Monocyte Count 1.18 10^3/uL (0.1-0.8); Absolute Neutrophil Count 6.57 10^3/uL (1.2-6.7); Basophils % 0.4; Eosinophils % 5.2; HCT 29.1 % (40.0-50.0); Immature Grans % 0.3; Lymphocytes % 10.7; MCH 30.1 pg (27.0-33.0); MCHC 34.4 % (32.0-36.0); MCV 88 fL (80-95); MPV 11.6 fL (8.0-11.0); Monocytes % 12.7; Neutrophils % 70.7; Platelet Count 155 10^3/uL (130-400); RBC 3.32 10^6/uL (4.36-5.78); RDW 13.5 % (11.8-14.1); RDW-SD 43.1 fL; WBC 9.29 10^3/uL (4.4-10.8)
[2023-01-12] MEDS: Citalopram 10 MG TAB PO (07:41)
[2023-01-12] MEDS: Topiramate 100 MG TAB PO ×2 (07:41→20:06)
[2023-01-12] MEDS: lamoTRIgine 100 MG TAB 300 MG PO ×2 (07:41→20:06)
[2023-01-12] MEDS: Normal Saline Flush 10 ML SYR IVP ×6 (07:42→17:44)
[2023-01-12] MEDS: clonazePAM 1 MG TAB PO (07:42)
[2023-01-12] MEDS: Lacosamide 100 MG TAB 200 MG PO (07:42)
[2023-01-12] MEDS: Acetaminophen 500 MG TAB 1000 MG PO (07:56)
[2023-01-12 08:12] LABS: Anion Gap 8.2 mmol/L (3-11); BUN 31 mg/dL (7-18); CO2 21.8 mmol/L (21.0-32.0); Calcium 8.1 mg/dL (8.5-10.1); Chloride 111 mmol/L (98-107); Estimated GFR 12.98 (mL/min/1.73m2); Glucose 116 mg/dL (74-106); Potassium 3.9 mmol/L (3.5-5.1); Sodium 141 mmol/L (136-145)
[2023-01-12] MEDS: hydrOXYzine HCL 25 MG TAB PO (08:13)
[2023-01-12 08:18] LABS: CREATININE 5.6 mg/dL (0.70-1.30)
[2023-01-12 08:24] LABS: Creatine Kinase > 10000 U/L (39-308)
[2023-01-12] MEDS: Lactated Ringers 1,000 ML 1000 ML IV (09:23)
[2023-01-12] MEDS: cefTRIAXone 2 GM/50 ML BAG IVPB ×2 (09:59→23:02)
[2023-01-12] MEDS: Normal Saline 500 ML 100 ML IV (09:59)
[2023-01-12 10:32] LABS: Lacosamide <0.5 mcg/mL (1.0 - 10.0)
--- NOTE | 2023-01-12 11:20 | CMPROGNOTE_ITS ---
Date of service: 01/12/23 Time of Service: 11:20 Care Management Progress Note Progress Note Text Progress Note Text: S/O: Ronen was sleeping when CM attempted to visit with him. Per provider, he is able to take in fluids, and he remains on IV fluids to treat rhabdomyolysis. His BUN and creatnine remain elevated. He is being closely monitored. CM will continue to follow. A: Ronen is a 32 year old man admitted with seizures P:Anticipate Ronen will be discharged home with no new services. A referral has been sent to [facility] for assistance with insurance for medications, medicare Part D. Ronen will follow up with his community providers and plan of care and transport with family.
[2023-01-12] MEDS: Nicotine 2 MG GUM CH (11:49)
[2023-01-12] MEDS: DOXYCYCLINE 100 MG in Normal Saline 100 ML IVPB ×2 (11:50→23:01)
[2023-01-12 12:41] LABS: Anion Gap 7.6 mmol/L (3-11); BUN 31 mg/dL (7-18); CO2 23.4 mmol/L (21.0-32.0); Calcium 8.4 mg/dL (8.5-10.1); Chloride 110 mmol/L (98-107); Estimated GFR 12.44 (mL/min/1.73m2); Glucose 99 mg/dL (74-106); Potassium 3.8 mmol/L (3.5-5.1); Sodium 141 mmol/L (136-145)
[2023-01-12 12:43] LABS: CREATININE 5.8 mg/dL (0.70-1.30)
[2023-01-12 14:32] LABS: Anion Gap 7.7 mmol/L (3-11); BUN 31 mg/dL (7-18); CO2 23.3 mmol/L (21.0-32.0); Calcium 8.3 mg/dL (8.5-10.1); Chloride 111 mmol/L (98-107); Glucose 151 mg/dL (74-106); Potassium 3.6 mmol/L (3.5-5.1); Sodium 142 mmol/L (136-145)
[2023-01-12 14:37] LABS: CREATININE 5.7 mg/dL (0.70-1.30)
[2023-01-12 16:14] LABS: Lab Add On Test DONE
[2023-01-12 16:25] LABS: PHOSPHORUS 3.6 mg/dL (2.6-4.7)
[2023-01-12] MEDS: oxyCODONE 5 MG TAB 2.5 MG PO (20:06)
[2023-01-12] MEDS: clonazePAM 1 MG TAB 2 MG PO (20:06)
[2023-01-12] MEDS: Lacosamide 100 MG TAB PO (20:07)
--- NOTE | 2023-01-12 20:15 | W.PM.PROGNOT ---
Date of Service Date of service: 01/12/23 Time of Service: 17:00 Assessment and Plan Assessment and plan (1) Status epilepticus: Status: Resolved Assessment and plan: The patient was loaded with keppra in the ED and has been seizure free since on his home maintenance medications. Continue renally dosed lacosamide, topamax, as well as lamictal and clonazepam. 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 He states that keppra makes him very sick (nausea, headache). See discussion above with [facility] neurology. (2) Rhabdomyolysis: Status: Acute Assessment and plan: Cr is a little better this afternoon. Continue to match ins/outs/Continue forced diuresis. Will attempt to match ins and outs. Continue MIVF. Trend chemistries and CPK. CPK remains >10,000. Not meeting criteria for acute hemodialysis today, per [facility] nephrology and, today, per [facility] nephrology, since he has a good UOP. (3) Acute kidney injury: Status: Acute Assessment and plan: With occasional hypokalemia. Due to above - as above. Replete K as needed. (4) Acute bronchitis: Status: Acute Assessment and plan: Continue empiric doxycycline/ceftriaxone. Monitor WBC, procalcitonin. (5) Metabolic acidosis: Status: Acute Assessment and plan: In setting of NOAH, rhabdomyolysis, recent seizure. Resolved. Monitor now off of the bicarbonate therapy. Monitor serial chemistries. (6) Leukocytosis: Status: Acute Assessment and plan: Reactive due to seizure. Resolved. We did initiate antibiotics for a bronchitis, which could be contributing. Blood cx negative. Repeat CXR was neg. UA negative. FLUVID negative. Rapid strep negative. (7) Seizure disorder: Assessment and plan: As above care management is addressing insurance coverage with the patient. (8) Hypokalemia: Status: Resolved Assessment and plan: Resolved. MOnitor serial chemistries. (9) DVT prophylaxis: Status: Acute Assessment and plan: SCDs Consider sc heparin (10) Discharge planning issues: Status: Acute Assessment and plan: Full code Should kidney function continue to worsen and UOP drop off, may require transfer to a tertiary care facility for hemodialysis. Subjective Subjective Interval history since last seen: Denies dizziness, CP, complains of some pleuritic chest pain this morning and B hip pain. States he has a h/o stress fractures in his B hips in the past which were not treated. No n/v. Appetite good. Would like to shower and to walk around. I discussed the case with [facility] neurology who recommended no changes to the current medications and adjusting the doses to his outpatient regimen as the kidney function permits. The patient also has a h/o nonepileptic seizures which is the indication for the combination of hydroxyzine and clonazepam. I also discussed the case with [facility] nephrology who also did not recommend any changes to our current management of the rhabdomyolysis. The patient did talk to someone on this admission already about lack of medical insurance converage. Exam Narrative Exam Narrative: General: A pleasant male laying comfortably in bed, A&Ox3, looks better to me, still sounds congested HEENT: EOMI, MMM Heart: RRR, no m/r/g Lungs: CTAB today Abdomen: soft, nontender, nondistended Extremities: no edema; LUE PICC line site - c/d/i Objective Last Vital Signs Temp 36.8 C 01/12/23 15:37 Pulse 80 01/12/23 15:37 Resp 12 01/12/23 15:37 BP 129/76 01/12/23 15:37 Pulse Ox 97 01/12/23 15:37 Laboratory Results - last 24 hr 01/09/23 01/12/23 01/12/23 06:00 06:45 12:13 WBC 9.29 RBC 3.32 L Hgb 10.0 L Hct 29.1 L MCV 88 MCH 30.1 MCHC 34.4 RDW 13.5 Plt Count 155 MPV 11.6 H Immature Gran % 0.3 Neutrophils % 70.7 Lymphocytes % 10.7 Monocytes % 12.7 Eosinophils % 5.2 Basophils % 0.4 Nucleated RBC % 0.0 Absolute Neutrophils 6.57 Absolute Lymphocytes 0.99 L Absolute Monocytes 1.18 H Absolute Eosinophils 0.48 Absolute Basophils 0.04 Sodium 141 141 Potassium 3.9 3.8 Chloride 111 H 110 H Carbon Dioxide 21.8 23.4 Anion Gap 8.2 7.6 BUN 31 H 31 H Creatinine 5.6 H* 5.8 H* Est GFR (CKD-EPI 2020) 12.98 12.44 Glucose 116 H 99 Calcium 8.1 L 8.4 L Phosphorus Magnesium 2.0 Creatine Kinase > 84049 H Lacosamide Level <0.5 L Topiramate 6.6 Add-On Test Request 01/12/23 01/12/23 14:02 16:13 WBC RBC Hgb Hct MCV MCH MCHC RDW Plt Count MPV Immature Gran % Neutrophils % Lymphocytes % Monocytes % Eosinophils % Basophils % Nucleated RBC % Absolute Neutrophils Absolute Lymphocytes Absolute Monocytes Absolute Eosinophils Absolute Basophils Sodium 142 Potassium 3.6 Chloride 111 H Carbon Dioxide 23.3 Anion Gap 7.7 BUN 31 H Creatinine 5.7 H* Est GFR (CKD-EPI 2020) 12.70 Glucose 151 H Calcium 8.3 L Phosphorus 3.6 Magnesium Creatine Kinase Lacosamide Level Topiramate Add-On Test Request DONE Objective Narrative Objective Narrative: Venous dopplers BLEs: 1. No evidence of a right lower extremity DVT. 2. No evidence of a left lower extremity DVT. XR B hips/pelvis: Unrmarkable radiographs of bilat hips. Unremarkable radiographs of the pelvis Time Spent with Patient Time Spent with Patient: 35-49 minutes Time was spent: preparing to see the patient(eg.review tests), obtaining and/or reviewing separately otained hiistory, ordering medications,tests, procedures, referring, communicating with other health health care analyst, indepentently interpreting results, counseling the patient and care coordination
[2023-01-12 21:15] LABS: Anion Gap 6.4 mmol/L (3-11); BUN 29 mg/dL (7-18); CO2 24.6 mmol/L (21.0-32.0); Calcium 8.4 mg/dL (8.5-10.1); Chloride 109 mmol/L (98-107); Estimated GFR 13.26 (mL/min/1.73m2); Glucose 108 mg/dL (74-106); PHOSPHORUS 3.7 mg/dL (2.6-4.7); Potassium 3.7 mmol/L (3.5-5.1); Sodium 140 mmol/L (136-145)
[2023-01-12 21:18] LABS: CREATININE 5.5 mg/dL (0.70-1.30)
[2023-01-13 03:25] VITALS: BP 119/76; PULSE 86; RESP 18; TEMP 37.9; O2SAT 97
[2023-01-13] MEDS: Acetaminophen 500 MG TAB 1000 MG PO ×2 (03:28→19:32)
[2023-01-13] MEDS: Lactated Ringers 1,000 ML 200 ML IV ×4 (04:12→22:57)
[2023-01-13 06:06] LABS: Abs Immature Grans 0.03 10^3/uL (0.0-0.06); Absolute Basophil Count 0.07 10^3/uL (0.0-0.2); Absolute Eosinophil Count 0.67 10^3/uL (0.0-0.7); Absolute Lymphocyte Count 1.53 10^3/uL (1.2-3.4); Absolute Monocyte Count 1.42 10^3/uL (0.1-0.8); Absolute Neutrophil Count 5.83 10^3/uL (1.2-6.7); Basophils % 0.7; HCT 30.3 % (40.0-50.0); HGB 10.3 g/dL (13.5-17.5); Immature Grans % 0.3; MCH 30.2 pg (27.0-33.0); MCV 89 fL (80-95); MPV 11.5 fL (8.0-11.0); Monocytes % 14.9; Neutrophils % 61.1; Platelet Count 190 10^3/uL (130-400); RBC 3.41 10^6/uL (4.36-5.78); RDW 13.8 % (11.8-14.1); WBC 9.55 10^3/uL (4.4-10.8)
[2023-01-13 06:57] LABS: Anion Gap 7.5 mmol/L (3-11); BUN 24 mg/dL (7-18); CO2 24.5 mmol/L (21.0-32.0); Calcium 8.5 mg/dL (8.5-10.1); Chloride 110 mmol/L (98-107); Estimated GFR 14.18 (mL/min/1.73m2); Glucose 95 mg/dL (74-106); Magnesium 1.8 mg/dL (1.8-2.4); PHOSPHORUS 3.9 mg/dL (2.6-4.7); Potassium 3.8 mmol/L (3.5-5.1); Sodium 142 mmol/L (136-145)
[2023-01-13 07:04] LABS: CREATININE 5.2 mg/dL (0.70-1.30)
[2023-01-13 07:14] LABS: Creatine Kinase > 10000 U/L (39-308)
[2023-01-13 07:48] VITALS: O2SAT 97
[2023-01-13] MEDS: Lacosamide 100 MG TAB 200 MG PO (08:07)
[2023-01-13] MEDS: Citalopram 10 MG TAB PO (08:07)
[2023-01-13] MEDS: clonazePAM 1 MG TAB PO (08:08)
[2023-01-13] MEDS: Topiramate 100 MG TAB PO ×2 (08:08→19:32)
[2023-01-13] MEDS: lamoTRIgine 100 MG TAB 300 MG PO ×2 (08:08→19:32)
[2023-01-13 08:24] LABS: Lab Add On Test DONE
[2023-01-13 08:35] VITALS: BP 120/75; PULSE 80; RESP 19; TEMP 36.7; O2SAT 97
[2023-01-13 09:42] LABS: Bilirubin Negative (Negative); Blood Large (Negative); Clarity Clear (Clear); Glucose Negative (Negative); Ketones Negative (Negative); Leukocyte Esterase Negative (Negative); Nitrite Negative (Negative); Specific Gravity 1.015 (1.005-1.025); Urobilinogen 0.2 mg/dL (Up to 0.2); pH 7.5 (5-8)
[2023-01-13 09:51] LABS: Bacteria Negative HPF (Negative); C & S Indicated? No; Casts Negative LPF (Negative); Crystals Negative HPF (Negative); Epithelial Cells Rare HPF (Negative); Mucus Negative (Negative); WBC 0-2 HPF (0-5)
[2023-01-13] MEDS: cefTRIAXone 2 GM/50 ML BAG IVPB ×2 (10:13→22:41)
--- NOTE | 2023-01-13 10:28 | PDOC.CMPRO ---
Date of service: 01/13/23 Time of Service: 10:28 Care Management Progress Note Progress Note Text Progress Note Text: S/O: Ronen was sitting up in bed when CM met with him. He looked much more awake and engaged than previously. He informed CM that he is feeling a lot better. His creatinine has been slowly trending down however his CK remains >10,000. He is receiving IV fluids and taking as much po liquids as he can to maintain hydration. A referral was sent to [facility] [place] [facility] for assistance with obtaining Medicare part D to help defray his medication expenses. No response has been received as yet. A: Ronen is a 32 year old man admitted with seizures P:Anticipate Ronen will be discharged home with no new services. A referral has been sent to [facility] for assistance with insurance for medications, Medicare Part D. Ronen will follow up with his community providers and plan of care and transport with family.
[2023-01-13] MEDS: Nicotine 2 MG GUM CH ×3 (10:42→19:33)
[2023-01-13] MEDS: Ondansetron 4 MG/2 ML VIAL IVP (11:41)
[2023-01-13 11:57] LABS: Source Nasal/Nares
[2023-01-13] MEDS: DOXYCYCLINE 100 MG in Normal Saline 100 ML IVPB ×2 (12:28→22:45)
[2023-01-13 12:30] LABS: COVID-19 PCR Negative (Negative)
[2023-01-13 14:48] LABS: Creatine Kinase > 10000 U/L (39-308)
[2023-01-13] MEDS: Nicotine 14 MG/24 HR PATCH TD (15:58)
[2023-01-13 16:15] VITALS: BP 118/83; PULSE 82; RESP 20; TEMP 37.6; O2SAT 96
[2023-01-13 16:39] LABS: Anion Gap 7.7 mmol/L (3-11); BUN 25 mg/dL (7-18); CO2 24.3 mmol/L (21.0-32.0); Calcium 8.4 mg/dL (8.5-10.1); Chloride 109 mmol/L (98-107); Estimated GFR 16.01 (mL/min/1.73m2); Glucose 110 mg/dL (74-106); Potassium 4.1 mmol/L (3.5-5.1); Sodium 141 mmol/L (136-145)
[2023-01-13 16:41] LABS: Creatine Kinase > 10000 U/L (39-308)
[2023-01-13 16:43] LABS: CREATININE 4.7 mg/dL (0.70-1.30)
--- NOTE | 2023-01-13 17:12 | PGE_ITS ---
Date of Service Date of service: 01/13/23 Time of Service: 15:55 Assessment and Plan Assessment and plan (1) Rhabdomyolysis: Status: Acute Assessment and plan: Cr is down to 4.7 now. CPK is still >10,000. Continue aggressive IVF, matching ins/outs/Continue forced diuresis.. Not meeting criteria for acute hemodialysis today, per [facility] and per [facility] nephrology, since he has a good UOP and his electrolytes are ok. (2) Status epilepticus: Status: Resolved Assessment and plan: The patient was loaded with keppra in the ED and has been seizure free since on his home maintenance medications. Continue renally dosed lacosamide, topamax, as well as lamictal and clonazepam. 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 He states that keppra makes him very sick (nausea, headache). Discussed w/ [facility] neurology. (3) Acute kidney injury: Status: Acute Assessment and plan: With occasional hypokalemia. Due to above - as above. Replete K as needed. (4) Acute bronchitis: Status: Suspected Assessment and plan: Continue empiric doxycycline/ceftriaxone. Overall, the fever curve appears better. Monitor WBC, procalcitonin. I suspect that this is what fever is being caused by. (5) Metabolic acidosis: Status: Acute Assessment and plan: In setting of NOAH, rhabdomyolysis, recent seizure. Resolved. Monitor now off of the bicarbonate therapy. Monitor serial chemistries. (6) Leukocytosis: Status: Resolved Assessment and plan: Reactive due to seizure. Resolved. We did initiate antibiotics for a bronchitis, which could be contributing. Blood cx negative. Repeat CXR was neg. UA negative. FLUVID negative. Rapid strep negative. (7) Seizure disorder: Assessment and plan: As above care management is addressing insurance coverage with the patient. (8) Hypokalemia: Status: Resolved Assessment and plan: Resolved. MOnitor serial chemistries. (9) DVT prophylaxis: Status: Acute Assessment and plan: Start SC heparin (10) Discharge planning issues: Status: Acute Assessment and plan: Full code Should kidney function continue to worsen and UOP drop off, may require transfer to a tertiary care facility for hemodialysis. Subjective Subjective Interval history since last seen: Mr Voss is feeling withdrawal from nicotine. Denied dizzines, CP, SOB, n. Appetite is better. Still feels congested. Exam Narrative Exam Narrative: General: A pleasant male laying comfortably in bed, A&Ox3, looks better, still sounds congested, more anxious today HEENT: EOMI, MMM Heart: RRR, no m/r/g Lungs: CTAB Abdomen: soft, nontender, nondistended Extremities: no edema; LUE PICC line site - c/d/i Objective Last Vital Signs Temp 37.6 C H 01/13/23 16:15 Pulse 82 01/13/23 16:15 Resp 20 01/13/23 16:15 BP 118/83 01/13/23 16:15 Pulse Ox 96 01/13/23 16:15 Laboratory Results - last 24 hr 01/12/23 01/13/23 01/13/23 20:51 05:45 05:45 WBC 9.55 RBC 3.41 L Hgb 10.3 L Hct 30.3 L MCV 89 MCH 30.2 MCHC 34.0 RDW 13.8 Plt Count 190 MPV 11.5 H Immature Gran % 0.3 Neutrophils % 61.1 Lymphocytes % 16.0 Monocytes % 14.9 Eosinophils % 7.0 Basophils % 0.7 Nucleated RBC % 0.0 Absolute Neutrophils 5.83 Absolute Lymphocytes 1.53 Absolute Monocytes 1.42 H Absolute Eosinophils 0.67 Absolute Basophils 0.07 Sodium 140 142 Potassium 3.7 3.8 Chloride 109 H 110 H Carbon Dioxide 24.6 24.5 Anion Gap 6.4 7.5 BUN 29 H 24 H Creatinine 5.5 H* 5.2 H* Est GFR (CKD-EPI 2020) 13.26 14.18 Glucose 108 H 95 Calcium 8.4 L 8.5 Phosphorus 3.7 3.9 Cancelled Magnesium 1.8 Creatine Kinase > 76954 H C-Reactive Protein 5.40 H Urine Color Urine Clarity Urine pH Ur Specific [place] Urine Protein Urine Ketones Urine Blood Urine Nitrite Urine Bilirubin Urine Urobilinogen Ur Leukocyte Esterase Urine RBC Urine WBC Ur Epithelial Cells Urine Crystals Urine Bacteria Urine Casts Urine Mucus Ur Culture Indicated? Urine Glucose COVID-19 Source SARS-CoV-2 (PCR) Add-On Test Request DONE 01/13/23 01/13/23 01/13/23 09:15 11:35 13:50 WBC RBC Hgb Hct MCV MCH MCHC RDW Plt Count MPV Immature Gran % Neutrophils % Lymphocytes % Monocytes % Eosinophils % Basophils % Nucleated RBC % Absolute Neutrophils Absolute Lymphocytes Absolute Monocytes Absolute Eosinophils Absolute Basophils Sodium Potassium Chloride Carbon Dioxide Anion Gap BUN Creatinine Est GFR (CKD-EPI 2020) Glucose Calcium Phosphorus Magnesium Creatine Kinase > 99776 H C-Reactive Protein Urine Color Yellow Urine Clarity Clear Urine pH 7.5 Ur Specific [place] 1.015 Urine Protein Negative Urine Ketones Negative Urine Blood Large H Urine Nitrite Negative Urine Bilirubin Negative Urine Urobilinogen 0.2 Ur Leukocyte Esterase Negative Urine RBC 5-10 H Urine WBC 0-2 Ur Epithelial Cells Rare Urine Crystals Negative Urine Bacteria Negative Urine Casts Negative Urine Mucus Negative Ur Culture Indicated? No Urine Glucose Negative COVID-19 Source Nasal/Nares SARS-CoV-2 (PCR) Negative Add-On Test Request 01/13/23 16:00 WBC RBC Hgb Hct MCV MCH MCHC RDW Plt Count MPV Immature Gran % Neutrophils % Lymphocytes % Monocytes % Eosinophils % Basophils % Nucleated RBC % Absolute Neutrophils Absolute Lymphocytes Absolute Monocytes Absolute Eosinophils Absolute Basophils Sodium 141 Potassium 4.1 Chloride 109 H Carbon Dioxide 24.3 Anion Gap 7.7 BUN 25 H Creatinine 4.7 H* Est GFR (CKD-EPI 2020) 16.01 Glucose 110 H Calcium 8.4 L Phosphorus Magnesium Creatine Kinase > 83703 H C-Reactive Protein Urine Color Urine Clarity Urine pH Ur Specific [place] Urine Protein Urine Ketones Urine Blood Urine Nitrite Urine Bilirubin Urine Urobilinogen Ur Leukocyte Esterase Urine RBC Urine WBC Ur Epithelial Cells Urine Crystals Urine Bacteria Urine Casts Urine Mucus Ur Culture Indicated? Urine Glucose COVID-19 Source SARS-CoV-2 (PCR) Add-On Test Request Time Spent with Patient Time Spent with Patient: 35-49 minutes Time was spent: preparing to see the patient(eg.review tests), obtaining and/or reviewing separately otained hiistory, ordering medications,tests, procedures, referring, communicating with other health manager managed care, indepentently interpreting results, counseling the patient and care coordination
[2023-01-13] MEDS: Heparin 5,000 UNITS/ML VIAL 5000 UNITS SC (17:53)
[2023-01-13] MEDS: Lacosamide 100 MG TAB PO (19:33)
[2023-01-13 20:01] VITALS: BP 131/78; PULSE 95; RESP 20; TEMP 38.2; O2SAT 96
[2023-01-13] MEDS: clonazePAM 1 MG TAB 2 MG PO (22:46)
[2023-01-13 23:24] VITALS: BP 132/81; PULSE 85; RESP 20; TEMP 37.1; O2SAT 97
[2023-01-14 03:42] VITALS: BP 114/68; PULSE 95; RESP 20; TEMP 36.9; O2SAT 95
[2023-01-14] MEDS: Lactated Ringers 1,000 ML 200 ML IV ×2 (04:21→11:08)
[2023-01-14] MEDS: Heparin 5,000 UNITS/ML VIAL 5000 UNITS SC ×2 (05:31→17:14)
[2023-01-14 06:58] LABS: Abs Immature Grans 0.03 10^3/uL (0.0-0.06); Absolute Basophil Count 0.07 10^3/uL (0.0-0.2); Absolute Eosinophil Count 0.88 10^3/uL (0.0-0.7); Absolute Neutrophil Count 5.68 10^3/uL (1.2-6.7); Basophils % 0.7; Eosinophils % 8.9; HCT 32.5 % (40.0-50.0); HGB 10.8 g/dL (13.5-17.5); Immature Grans % 0.3; Lymphocytes % 18.3; MCH 29.8 pg (27.0-33.0); MCHC 33.2 % (32.0-36.0); MCV 90 fL (80-95); MPV 11.9 fL (8.0-11.0); Monocytes % 14.2; Neutrophils % 57.6; Platelet Count 224 10^3/uL (130-400); RBC 3.62 10^6/uL (4.36-5.78); RDW 13.9 % (11.8-14.1); RDW-SD 45.1 fL; WBC 9.86 10^3/uL (4.4-10.8)
[2023-01-14 07:11] VITALS: BP 127/67; PULSE 87; RESP 22; TEMP 37.2; O2SAT 94
[2023-01-14] MEDS: lamoTRIgine 100 MG TAB 300 MG PO ×2 (07:23→20:21)
[2023-01-14] MEDS: Acetaminophen 500 MG TAB 1000 MG PO ×2 (07:23→20:20)
[2023-01-14] MEDS: clonazePAM 1 MG TAB PO (07:24)
[2023-01-14] MEDS: Citalopram 10 MG TAB PO (07:24)
[2023-01-14] MEDS: Lacosamide 100 MG TAB 200 MG PO (07:24)
[2023-01-14] MEDS: Topiramate 100 MG TAB PO ×2 (07:24→20:20)
[2023-01-14 07:35] LABS: BUN 21 mg/dL (7-18); C-Reactive Protein 4.72 mg/dL (0.0-0.3); Calcium 8.6 mg/dL (8.5-10.1); Chloride 111 mmol/L (98-107); Estimated GFR 17.81 (mL/min/1.73m2); Glucose 93 mg/dL (74-106); Magnesium 1.6 mg/dL (1.8-2.4); Potassium 3.9 mmol/L (3.5-5.1); Sodium 144 mmol/L (136-145)
[2023-01-14 08:15] LABS: CREATININE 4.3 mg/dL (0.70-1.30); Creatine Kinase > 10000 U/L (39-308)
[2023-01-14 08:17] LABS: Procalcitonin 0.7 ng/mL
[2023-01-14] MEDS: cefTRIAXone 2 GM/50 ML BAG IVPB (10:22)
[2023-01-14] MEDS: Nicotine 14 MG/24 HR PATCH TD (10:24)
[2023-01-14] MEDS: Nicotine 2 MG GUM CH ×3 (11:05→17:23)
[2023-01-14] MEDS: MAGNESIUM SULFATE 1 GM/100 ML BAG IVPB (11:08)
[2023-01-14] MEDS: Ondansetron 4 MG/2 ML VIAL IVP (12:00)
[2023-01-14] MEDS: Normal Saline Flush 10 ML SYR IVP (12:00)
--- NOTE | 2023-01-14 12:55 | DI.RAD_ITS ---
Exam(s) XR CHEST 2V PA LATERAL EXAM: XR CHEST 2V PA LATERAL CLINICAL HISTORY: cough, fever TECHNIQUE: 2D digital imaging was performed of the chest. Two images were obtained. PA and lateral views were obtained. COMPARISON: CR,XR XR PORTABLE CHEST AP from 01/10/2023 FINDINGS: MEDIASTINUM: Normal. HEART: Normal. PULMONARY VASCULATURE: Normal. LUNGS: Clear. PLEURAL SPACE: There are small bilateral pleural effusions. No pneumothorax. BONE:Within normal limits for the patient's age. OTHER FINDINGS:The tip of the right PICC line is in good position in the superior vena cava. IMPRESSION: 1. Small bilateral pleural effusions. 2. No focal consolidating infiltrate. DATA REPOSITORY: RADIATION DOSE DELIVERED:
--- NOTE | 2023-01-14 13:10 | DI.VRAD_ITS ---
PROCEDURE INFORMATION: Exam: XR Chest Exam date and time: 01/14/2023 12:50 PM Age: 32 years old Clinical indication: Cough and fever TECHNIQUE: Imaging protocol: Radiologic exam of the chest. Views: 2 views. COMPARISON: CR XR PORTABLE CHEST AP 10/01/2023 13:58 FINDINGS: Tubes, catheters and devices: Right PICC line in place with the tip in the mid superior vena cava. Lungs: Improved lung volumes. No focal consolidation. Pleural spaces: Bilateral pleural effusions. Heart/Mediastinum: Stable cardiomediastinal silhouette. Bones/joints: Unremarkable for patient's age. IMPRESSION: 1. Bilateral pleural effusions. 2. No focal consolidation. 3. PICC line unchanged in position. Dictated and Authenticated by: Britany Gu MD. Ordering:[facility] Jeannette Phelps MD
[2023-01-14] MEDS: DOXYCYCLINE 100 MG in Normal Saline 100 ML IVPB ×2 (13:15→23:13)
[2023-01-14 15:09] VITALS: BP 149/84; PULSE 88; RESP 20; TEMP 36.9; O2SAT 98
--- NOTE | 2023-01-14 16:38 | W.PM.PROGNOT ---
Date of Service Date of service: 01/14/23 Time of Service: 16:38 Assessment and Plan Assessment and plan (1) Rhabdomyolysis: Status: Acute Assessment and plan: Cr is down to 4.3 now. CPK is still >10,000. Continue aggressive IVF, matching ins/outs/Continue forced diuresis.. Not meeting criteria for acute hemodialysis as he maintains good UOP and no hyperkalemia nor any residual severe acidosis. He had an AG metabolic acidosis on admission but responded to the bicarbonate drip for his rhabdomyolysis and no longer needs bicarbonate. Case was discussed by Dr. Donn coronado/ both [facility] and [facility] [place]. Qualifiers: Rhabdomyolysis type: non-traumatic Qualified Code(s): M62.82 - Rhabdomyolysis (2) Status epilepticus: Status: Resolved Assessment and plan: The patient was loaded with keppra in the ED and has been seizure free since on his home maintenance medications. Continue renally dosed lacosamide, topamax, as well as lamictal and clonazepam. 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 Discussion by Dr. Donn coronado/ [facility] neurology. (3) Acute kidney injury: Status: Acute Assessment and plan: With occasional hypokalemia. Due to above - as above. Replete K as needed. (4) Acute bronchitis: Status: Suspected Assessment and plan: Continue empiric doxycycline/ceftriaxone. No bronchospasms per my clinical exam. Not requiring oxygen. will finish 5th day of antibiotics tomorrow and then dc antibiotics. CXR today did not show any infiltrates. Qualifiers: Bronchitis organism: unspecified organism Qualified Code(s): J20.9 - Acute bronchitis, unspecified (5) Seizure disorder: Assessment and plan: As above care management is addressing insurance coverage with the patient. (6) DVT prophylaxis: Status: Acute Assessment and plan: Start SC heparin (7) Discharge planning issues: Status: Acute Assessment and plan: Full code At present time no need for transfer to tertiary care center. I will discuss w/ CM what if any options he has for obtaining medication coverage, so he does not run out of his AED's again. Subjective Subjective Interval history since last seen: Ronen is feeling better. Minimal temperature today at 37.2. He remains on Ceftriaxone and doxycyline for bronchitis. CXR did not show any pneumonic consolidations. He has had no seizures since admission and resumption of his multiple AED's (Klonopin, Vimpat, Lamictal and Topamax). His CK remains >10,000 and his creatinine is still elevated at 4.3 but has been coming down from high of 6.4. His urine output remains high (>14 liters yesterday). We have had to increase his iv LR to keep up with his ouput. I think once his CK has returned under 10,000 then we can back off further iv fluids. Exam Narrative Exam Narrative: Young black male sitting up in bed talking with his he is alert and oriented person place time circumstance no acute distress no respiratory discomfort. Not short of breath not coughing up any purulent sputum. Lungs are clear to auscultation Heart is regular rate and rhythm Abdomen soft and nontender Extremities without peripheral cyanosis edema. Left forearm he has a small scab over the volar surface from where prior IV had infiltrated. There is no induration no erythema no increased warmth Objective Last Vital Signs Temp 36.9 C 01/14/23 15:09 Pulse 88 01/14/23 15:09 Resp 20 01/14/23 15:09 BP 149/84 H 01/14/23 15:09 Pulse Ox 98 01/14/23 15:09 Laboratory Results - last 24 hr 01/13/23 01/14/23 16:00 05:30 WBC 9.86 RBC 3.62 L Hgb 10.8 L Hct 32.5 L MCV 90 MCH 29.8 MCHC 33.2 RDW 13.9 Plt Count 224 MPV 11.9 H Immature Gran % 0.3 Neutrophils % 57.6 Lymphocytes % 18.3 Monocytes % 14.2 Eosinophils % 8.9 Basophils % 0.7 Nucleated RBC % 0.0 Absolute Neutrophils 5.68 Absolute Lymphocytes 1.80 Absolute Monocytes 1.40 H Absolute Eosinophils 0.88 H Absolute Basophils 0.07 Sodium 141 144 Potassium 4.1 3.9 Chloride 109 H 111 H Carbon Dioxide 24.3 25.0 Anion Gap 7.7 8.0 BUN 25 H 21 H Creatinine 4.7 H* 4.3 H* Est GFR (CKD-EPI 2020) 16.01 17.81 Glucose 110 H 93 Calcium 8.4 L 8.6 Magnesium 1.6 L Creatine Kinase > 80224 H > 32980 H C-Reactive Protein 4.72 H Procalcitonin 0.7 Time Spent with Patient Time Spent with Patient: 35-49 minutes Time was spent: preparing to see the patient(eg.review tests), ordering medications,tests, procedures, indepentently interpreting results, counseling the patient and care coordination
[2023-01-14] MEDS: Lactated Ringers 1,000 ML 250 ML IV ×2 (17:22→21:40)
[2023-01-14 19:43] VITALS: BP 143/80; PULSE 92; RESP 18; TEMP 37.7; O2SAT 95
[2023-01-14] MEDS: clonazePAM 1 MG TAB 2 MG PO (20:20)
[2023-01-14] MEDS: Lacosamide 100 MG TAB PO (20:21)
[2023-01-15] MEDS: Lactated Ringers 1,000 ML 250 ML IV ×4 (02:46→15:43)
[2023-01-15 02:49] VITALS: BP 126/68; PULSE 80; RESP 16; TEMP 36.8; O2SAT 96
[2023-01-15] MEDS: Heparin 5,000 UNITS/ML VIAL 5000 UNITS SC ×2 (05:47→18:05)
[2023-01-15 07:01] LABS: Abs Immature Grans 0.09 10^3/uL (0.0-0.06); Absolute Basophil Count 0.08 10^3/uL (0.0-0.2); Absolute Eosinophil Count 0.89 10^3/uL (0.0-0.7); Absolute Lymphocyte Count 1.69 10^3/uL (1.2-3.4); Absolute Monocyte Count 1.28 10^3/uL (0.1-0.8); Absolute Neutrophil Count 6.13 10^3/uL (1.2-6.7); Basophils % 0.8; Eosinophils % 8.8; HCT 32.5 % (40.0-50.0); Immature Grans % 0.9; Lymphocytes % 16.6; MCH 30.1 pg (27.0-33.0); MCHC 33.8 % (32.0-36.0); MCV 89 fL (80-95); MPV 11.8 fL (8.0-11.0); Monocytes % 12.6; Neutrophils % 60.3; Platelet Count 256 10^3/uL (130-400); RBC 3.65 10^6/uL (4.36-5.78); RDW-SD 45.4 fL; WBC 10.16 10^3/uL (4.4-10.8)
[2023-01-15 07:39] LABS: Anion Gap 7.1 mmol/L (3-11); BUN 20 mg/dL (7-18); C-Reactive Protein 3.96 mg/dL (0.0-0.3); CO2 23.9 mmol/L (21.0-32.0); CREATININE 3.4 mg/dL (0.70-1.30); Calcium 8.8 mg/dL (8.5-10.1); Chloride 111 mmol/L (98-107); Estimated GFR 23.61 (mL/min/1.73m2); Glucose 93 mg/dL (74-106); Magnesium 1.5 mg/dL (1.8-2.4); Potassium 4.2 mmol/L (3.5-5.1); Sodium 142 mmol/L (136-145)
[2023-01-15 07:44] LABS: Creatine Kinase 6568 U/L (39-308)
[2023-01-15] MEDS: clonazePAM 1 MG TAB PO (08:12)
[2023-01-15] MEDS: Citalopram 10 MG TAB PO (08:12)
[2023-01-15] MEDS: lamoTRIgine 100 MG TAB 300 MG PO ×2 (08:13→19:46)
[2023-01-15] MEDS: Nicotine 14 MG/24 HR PATCH TD (08:13)
[2023-01-15] MEDS: Topiramate 100 MG TAB PO ×2 (08:14→19:45)
[2023-01-15] MEDS: Lacosamide 100 MG TAB 200 MG PO ×2 (08:14→19:46)
[2023-01-15 08:21] VITALS: BP 142/76; PULSE 87; RESP 18; TEMP 37.5; O2SAT 94
--- NOTE | 2023-01-15 09:43 | NUR.NOTE ---
Patient wraps Picc line in preparation to take a shower.Nursing Note:
[2023-01-15] MEDS: cefTRIAXone 2 GM/50 ML BAG IVPB (10:10)
[2023-01-15] MEDS: MAGNESIUM SULFATE 2 GM/50 ML BAG IVPB (11:24)
[2023-01-15] MEDS: DOXYCYCLINE 100 MG in Normal Saline 100 ML IVPB ×2 (11:33→23:50)
--- NOTE | 2023-01-15 13:59 | CHAPLAIN ---
Ronen was sitting on top of his bed visiting with family members when I stopped in. I explained my role and offered support. Ronen was pleasant, but not interested in further conversation at this time.
--- NOTE | 2023-01-15 14:46 | PGE_ITS ---
Date of Service Date of service: 01/15/23 Time of Service: 14:46 Assessment and Plan Assessment and plan (1) Rhabdomyolysis: Status: Acute Assessment and plan: Cr is down to 3.4 now. CPK down to 6500 Continue aggressive IVF, matching ins/outs/Continue forced diuresis.. Continue daily monitoring of labs. Once his CK is under 1000 and his creatinine is under 3 I think he could be discharged home. Professional time spent interviewing and examining patient, discussion of goals of care with hospital team (care management, nursing and consulting professionals) was 30 minutes. Qualifiers: Rhabdomyolysis type: non-traumatic Qualified Code(s): M62.82 - Rhabdomyolysis (2) Status epilepticus: Status: Resolved Assessment and plan: The patient was loaded with keppra in the ED and has been seizure free since on his home maintenance medications. Continue renally dosed lacosamide, topamax, as well as lamictal and clonazepam. 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 Discussion by Dr. Donn coronado/ [facility] [place]. (3) Acute kidney injury: Status: Acute Assessment and plan: With occasional hypokalemia. Due to above - as above. Replete K as needed. Replete tumid needed (4) Hypomagnesemia: Status: Acute Assessment and plan: Magnesium is at 1.5. Begin oral supplementation recheck levels. (5) Acute bronchitis: Status: Suspected Assessment and plan: Continue empiric doxycycline/ceftriaxone today Will complete 5 days of doxycycline and ceftriaxone. No bronchospasms per my clinical exam. Not requiring oxygen. Qualifiers: Bronchitis organism: unspecified organism Qualified Code(s): J20.9 - Acute bronchitis, unspecified (6) Seizure disorder: Assessment and plan: As above care management is addressing insurance coverage with the patient. (7) DVT prophylaxis: Status: Acute Assessment and plan: Start SC heparin (8) Discharge planning issues: Status: Acute Assessment and plan: Full code At present time no need for transfer to tertiary care center. I will discuss w/ CM what if any options he has for obtaining medication coverage, so he does not run out of his AED's again. Subjective Subjective Patient reports: no new complaints and feels better; denies nausea or shortness of breath Exam Narrative Exam Narrative: Alert and oriented x4 Lungs: Clear to auscultation and percussion Heart: Regular rate and rhythm without murmur rub or gallop. Normal apical impulse Abdomen: Nondistended, normal bowel sounds, nontender to palpation or percussion, no organomegaly, no bruits, no palpable masses Extremities: Normal range of motion with normal strength. No peripheral cyanosis or edema. Normal pulses Objective Last Vital Signs Temp 37.5 C 01/15/23 08:21 Pulse 87 01/15/23 08:21 Resp 18 01/15/23 08:21 BP 142/76 H 01/15/23 08:21 Pulse Ox 94 01/15/23 08:21 Laboratory Results - last 24 hr 01/15/23 01/15/23 01/15/23 05:55 05:55 05:55 WBC 10.16 RBC 3.65 L Hgb 11.0 L Hct 32.5 L MCV 89 MCH 30.1 MCHC 33.8 RDW 14.0 Plt Count 256 MPV 11.8 H Immature Gran % 0.9 Neutrophils % 60.3 Lymphocytes % 16.6 Monocytes % 12.6 Eosinophils % 8.8 Basophils % 0.8 Nucleated RBC % 0.0 Absolute Neutrophils 6.13 Absolute Lymphocytes 1.69 Absolute Monocytes 1.28 H Absolute Eosinophils 0.89 H Absolute Basophils 0.08 Sodium 142 Potassium 4.2 Chloride 111 H Carbon Dioxide 23.9 Anion Gap 7.1 BUN 20 H Creatinine 3.4 H Est GFR (CKD-EPI 2020) 23.61 Glucose 93 Calcium 8.8 Magnesium 1.5 L Cancelled Creatine Kinase 6568 H C-Reactive Protein 3.96 H Cancelled Time Spent with Patient Time Spent with Patient: 25-34 minutes Time was spent: preparing to see the patient(eg.review tests), ordering medications,tests, procedures, indepentently interpreting results, counseling the patient and care coordination
[2023-01-15 15:26] VITALS: BP 142/75; PULSE 90; RESP 18; TEMP 37.2; O2SAT 98
[2023-01-15] MEDS: Normal Saline Flush 10 ML SYR IVP (19:47)
[2023-01-15] MEDS: Nicotine 2 MG GUM CH (19:56)
[2023-01-15] MEDS: clonazePAM 1 MG TAB 2 MG PO (22:29)
[2023-01-15 23:30] VITALS: BP 133/73; PULSE 96; RESP 18; TEMP 37.6; O2SAT 97
[2023-01-15] MEDS: Lactated Ringers 1,000 ML 150 ML IV (23:50)
[2023-01-15] MEDS: Magnesium Oxide 400 MG TAB 800 MG PO (23:51)
[2023-01-16] MEDS: Heparin 5,000 UNITS/ML VIAL 5000 UNITS SC (05:46)
[2023-01-16] MEDS: Lactated Ringers 1,000 ML 150 ML IV (07:18)
[2023-01-16] MEDS: Nicotine 14 MG/24 HR PATCH TD (07:34)
[2023-01-16] MEDS: clonazePAM 1 MG TAB PO (07:35)
[2023-01-16] MEDS: Magnesium Oxide 400 MG TAB PO (07:35)
[2023-01-16] MEDS: Citalopram 10 MG TAB PO (07:35)
[2023-01-16] MEDS: lamoTRIgine 100 MG TAB 300 MG PO (07:35)
[2023-01-16] MEDS: Lacosamide 100 MG TAB 200 MG PO (07:35)
[2023-01-16] MEDS: Topiramate 100 MG TAB PO (07:36)
[2023-01-16 07:40] LABS: Magnesium 1.6 mg/dL (1.8-2.4)
[2023-01-16] MEDS: Normal Saline Flush 10 ML SYR IVP (07:43)
[2023-01-16 07:53] LABS: Anion Gap 8.2 mmol/L (3-11); BUN 14 mg/dL (7-18); CO2 23.8 mmol/L (21.0-32.0); CREATININE 2.5 mg/dL (0.70-1.30); Calcium 8.9 mg/dL (8.5-10.1); Chloride 110 mmol/L (98-107); Estimated GFR 34.15 (mL/min/1.73m2); Glucose 99 mg/dL (74-106); Potassium 4.2 mmol/L (3.5-5.1); Sodium 142 mmol/L (136-145)
[2023-01-16 07:59] VITALS: BP 138/87; PULSE 94; RESP 17; TEMP 37.2; O2SAT 99
[2023-01-16 08:05] LABS: Creatine Kinase 4651 U/L (39-308)
[2023-01-16] MEDS: Nicotine 2 MG GUM CH (08:47)
[2023-01-16] MEDS: cefTRIAXone 2 GM/50 ML BAG IVPB (09:56)
[2023-01-16] MEDS: Bacitracin 1 PACKET (10:42)
--- NOTE | 2023-01-16 22:53 | W.PM.DS.N ---
Date of service: 01/16/23 Time of Service: 22:54 DS: Diagnosis Discharge Diagnosis (1) Rhabdomyolysis: Status: Acute (2) Status epilepticus: Status: Resolved (3) Acute kidney injury: Status: Acute (4) Hypomagnesemia: Status: Acute (5) Acute bronchitis: Status: Suspected (6) Seizure disorder: Discharge Plan Disposition Patient Disposition: Against Medical Advice Condition: Stable Discharge Details Reason For Visit: seizure, rhabdo Admit Date/Time: 01/09/23 01:13 Admit Provider: Abraham Jean Baptiste Attending Provider: Abraham Jean Baptiste Primary Care Provider: Veronika Palmer Hospital Course Hospital Course: 32-year-old male with a history of epileptogenic and nonepileptic genic seizure disorder, cerebral AVM status post coiling recently ran out of his antiepileptic drugs due to lack of insurance. He was found down at home by his on 01/09/2023 unresponsive. He apparently had had a seizure and was postictal. See admission H&P for details of presenting symptoms and signs as well as ED report. In summary he was found to have a leukocytosis of 27,000 he had a metabolic acidosis with an anion gap of 30 and had rhabdomyolysis with CPK greater than 10,000 and acute kidney injury with a creatinine 2.5. CT scan of his head was negative. He was loaded with Keppra 2 g and given IV fluids x2 L and was put on bicarbonate drip. He was admitted to the medical/surgical floor for antiepileptic drugs and iv fluids. Rhabdomyolysis was treated with aggressive IV fluids and a forced diuresis. Hospitalist service spoke with nephrology at [facility] as well as [facility]. Because he was making good urine output with IV fluids and his metabolic acidosis corrected he was not deemed to be a candidate for hemodialysis. Therefore he was not excepted in transfer to either tertiary care center. Were able to obtain his home antiepileptic drug regimen after consultation with neurology at [facility]. He was resumed on Topamax 100 mg twice daily, lamotrigine 300 mg twice daily, lacosamide 200 mg twice daily, and clonazepam 1 mg in the morning and 2 mg at night. He was resumed on escitalopram 10 mg daily. Hospital course was complicated by acute bronchitis for which she was treated with ceftriaxone and doxycycline x5 days. He had no further seizures. Daily labs were monitored to track his progression of his rhabdomyolysis and acute kidney injury. IV fluids were adjusted to match his urine output. He had aggressive urine output of 10 to 14 L/day. Creatine kinase remained greater than 10,000 for a prolonged period from January 09, 2023 through January 14, 2023 was only on January 15, 2023 that it came down to 6500 and on the day that he left the hospital it was 4600. Daily electrolytes and BUN and creatinine were monitored. His creatinine on admission was mildly elevated at 2.5 but then peaked to as high as 6.4 on 01/11/2023 at the time that he left the hospital his creatinine was down to 2.5. Patient had some mild hypokalemia on admission which was corrected. His lowest potassium was 3.1 at the time of discharge was normalized at 4.2. His anion gap which had been elevated on admission corrected by the next morning. Bicarbonate drip was discontinued by the next day. Unfortunately patient left the hospital AGAINST MEDICAL ADVICE on 01/15/2023 and would not wait around long enough for safe planned discharge in which follow-up labs can be ordered and discharge medications can be ordered. His vital signs were stable at the time of discharge his renal function had shown improvement in his rhabdomyolysis was resolving although not to a level that was acceptable for discharge. It is unclear as to the reason that the patient left the hospital AGAINST MEDICAL ADVICE. Word from his nurse indicated that the patient's begged him to stay but the patient refused and at this time is unclear as to his reasons for leaving the hospital. Hopefully the patient will see immediate medical follow-up for his seizure disorder. No medications were dispensed at the time of discharge. Patient remains at high risk for further seizures and worsening of his rhabdomyolysis. Home Meds and New Rx's Prescriptions: No Action topiramate [Topamax] 200 mg tablet 200 mg PO BID Qty: 180 3RF lacosamide [Vimpat] 200 mg tablet 200 mg PO BID clonazepam 1 mg Tablet 2 mg PO QHS Qty: 60 0RF clonazepam 1 mg tablet 1 mg PO QAM Qty: 30 0RF clobazam 10 mg tablet 25 mg PO BID Patient Comments: TAKE ONE TABLET BY MOUTH TWICE A DAY citalopram 10 mg tablet 10 mg PO DAILY Patient Comments: TAKE 1 TABLET BY MOUTH EVERY DAY lamotrigine 200 mg tablet 300 mg PO BID Patient Comments: TAKE 1 AND 1/2 TABLETS BY MOUTH TWICE DAILY baclofen 10 mg tablet 10 mg PO TID PRN Patient Comments: TAKE ONE TABLET BY MOUTH THREE TIMES A DAY NEEDED hydroxyzine HCl 25 mg tablet 25 mg PO QID PRN Discharge Instructions Activity:: Activity as Tolerated Equipment/Supplies:: No Equipment Needed Diet:: Normal Diet Discharge Orders Discharge Orders: Discharge Order (Routine); Ordered 01/16/23 Ordered By: Lenin Machado Discharge Data Discharge Date/Time-TO BE ENTERED AT DEPARTURE: 01/16/23 10:46 DS: Summary Time Spent with Patient providing and/or coordinating discharge services: Less than 30 minutes Status at Discharge Functional status at discharge: independent ambulation Overall status at discharge: patient is progressing back to baseline Mental Status: mental status grossly normal Speech and Movement: speech and movement normal Mood: congruent mood Affect: normal affect Exam Psych Mental Status: mental status grossly normal Speech and Movement: speech and movement normal Mood: congruent mood Affect: normal affect DS: Data Vitals/I&O Vitals and I&O: Vital Signs Temperature 37.2 C 01/16/23 07:59 Temperature Source Tympanic 01/16/23 07:59 Pulse 94 H 01/16/23 07:59 Pulse Rhythm Regular 01/16/23 10:26 Pulse 90 01/09/23 01:10 Respiratory Rate 17 01/16/23 07:59 Respiratory Effort Normal 01/16/23 10:26 Respiratory Depth Normal 01/14/23 02:12 Respiratory Pattern Normal 01/14/23 23:08 Blood Pressure 138/87 01/16/23 07:59 Blood Pressure Mean 70 01/09/23 00:33 Blood Pressure Position Supine 01/08/23 16:44 Pulse Oximetry 99 01/16/23 07:59 Respiratory End-tidal CO2 19 01/08/23 19:00 Oxygen Delivery Method Room Air 01/16/23 07:59 Oxygen Flow Rate 0 01/16/23 07:59 Pain Level 0 01/16/23 07:59 Comment nurse notified. 01/13/23 20:01 Intake & Output 01/15/23 01/16/23 01/16/23 23:59 11:59 23:59 Intake Total 2920.000 / 5894.167 1130 / 1130 Output Total 800 / 6700 1950 / 1950 Balance 2120.000 / -805.833 -820 / -820 Intake: IV 2220.000 / 5074.167 1130 / 1130 Oral 700 / 820 Output: Urine 800 / 6700 1949 Other: Urine Color Pale Pale Yellow Urine Appearance Clear Clear Comment multiple voids according to patient. Stool Characteristics Soft Brown Voiding Methods Urinal Urinal Data Completed and Pending Labs on day of discharge: Labs from last 24 hours 01/16/23 06:45 Sodium 142 Potassium 4.2 Chloride 110 H Carbon Dioxide 23.8 Anion Gap 8.2 BUN 14 Creatinine 2.5 H Est GFR (CKD-EPI 2020) 34.15 Glucose 99 Calcium 8.9 Magnesium 1.6 L Creatine Kinase 4651 H PFSH All Active Problems (Updated 01/15/23 @ 21:08 by Lenin Machado MD) Hypomagnesemia (Acute) Discharge planning issues (Acute) DVT prophylaxis (Acute) Acute kidney injury (Acute) Rhabdomyolysis (Acute) Metabolic acidosis (Acute) Generalized seizure (Acute) COVID-19 (Acute) AVM (arteriovenous malformation) (Acute) Closed fracture of distal clavicle (Acute 01/09/21) Kidney stone on right side (Acute) Contusion of rib on left side (Acute) Clavicle fracture (Acute) Pre-syncope (Acute) Partial symptomatic epilepsy with complex partial seizures, intractable, with status epilepticus (Acute 10/20/16) 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 and with status migrainosus (Acute 08/13/16) Chronic daily headache (Acute 08/13/16) AVM (arteriovenous malformation) brain (Acute) Medical History (Updated 01/15/23 @ 21:08 by Lenin Machado MD) Leukocytosis Anxiety Seizure disorder Cerebral AVM Surgical History S/P coil embolization of cerebral aneurysm Social History Smoking/Tobacco Use Status: Former Tobacco Use Smoking risk assessment performed?: Yes Alcohol Intake: never Drug use: Daily Substance use type: marijuana Housing: apartment Current gender identity: male Do you feel safe at home: Yes Do you feel safe in your relationship?: Yes Time Spent with Patient Time Spent with Patient: <45 minutes Time was spent: other (Preparing discharge summary)
== END 2023-01-16 10:46 | disposition left against medical advice (07) | DRG 101 ==
LOC: ER 01-09 01:54 → MS 01-09 09:25
PROVIDERS: Emergency Medicine; Family Medicine; Internal Medicine; Admitting Provider General Practice; Emergency Provider Student in an Organized Health Care Education/Training Program; PCP Family Medicine; Visit Provider General Practice
DX: G40.201 Localization-related (focal) (partial) symptomatic epilepsy and epileptic syndromes with complex partial seizures, not intractable, with status epilepticus (principal); M62.82 Rhabdomyolysis; N17.9 Acute kidney failure, unspecified; E87.20 Acidosis, unspecified; D72.829 Elevated white blood cell count, unspecified; E87.6 Hypokalemia; E83.42 Hypomagnesemia; J20.9 Acute bronchitis, unspecified; F12.90 Cannabis use, unspecified, uncomplicated; Z87.891 Personal history of nicotine dependence; Z91.141 Patient's other noncompliance with medication regimen due to financial hardship; N20.0 Calculus of kidney
CPT/HCPCS: 00123; 36415; 36416; 36573; 71045; 73521; 80048; 80053; 80175; 82550; 82805; 82962; 84145; 85027; 87040; 87635; 87637; 94640; 96361; 96365; 96368; 96375; 99291; 70450; 70486; 71046; 72125; 80201; 80235; 81003; 81015; 83735; 83880; 84100; 84484; 85025; 86140; 87081; 87086; 93005; 93010; 93970; 94664; 94667; 94668; 94760; 99223; 99232; 99233; 99238; J0131; J1644; J1885; J1941; J1953; J2060; J2405; J3475; J3480; J7060

== ENCOUNTER → 2023-02-19 01:26 | Outpatient (CLI) | payer MEDICARE, SELFPAY ==
--- NOTE | 2023-02-19 | DI.MRI_ITS ---
Exam(s) MR BRAIN WO/W EXAM: MR BRAIN WO/W CLINICAL HISTORY: CEREBROVASCULAR MALFORMATION, Q28.3 TECHNIQUE: Multiplanar multisequence MRI of the brain was performed. Both noninfused and contrast i nfused sequences were performed. IV Contrast injected was cc Dotarem. FINDINGS: CEREBRAL PARENCHYMA: Again noted is the large right frontal-temporal AVM which has undergone prior th erapeutic interventional coiling. There is still flow along the periphery of the AVM with dilated draining cortical veins. Drain into the superior sagittal sinus. Also some deep drainage still evident, this related to the right latera l ventricle There is no evidence of acute hemorrhage and there is no restricted diffusion to suggest acute infar ct. There is no significant focal signal abnormality in the cerebellar hemispheres nor within the rita, m idbrain, and thalami. There is no abnormal signal abnormality in the periventricular white matter. DWI: No areas of restricted diffusion to suggest acute ischemic event. SWI: No microhemorrhages evident. PITUITARY GLAND: No mass. PARANASAL SINUSES: There is significant sinus disease in the subjacent through right maxillary sinus. There is prominent unilateral circumferential mucosal thickening in the right maxillary sinus. Mil d mucosal thickening in the thumb oil air cells. Sphenoid sinuses are clear. ORBITS: No obvious abnormal findings. IMPRESSION: 1. Large right frontotemporal AVM which has undergone prior embolization. There is superficial drain age to the superior sagittal sinus via dilated superficial cortical veins. There is a smaller amount of deep venous drainage predominately along the ependymal surface of the right lateral ventricle whi ch drains into the right internal cerebral vein 2. No new abnormal signal within the adjacent brain parenchyma. DATA REPOSITORY:
--- NOTE | 2023-02-19 | DI.MRI_ITS ---
Exam(s) MR VENOUS BRAIN WO/W EXAM: MR VENOUS BRAIN WO/W CLINICAL HISTORY: CEREBROVASCULAR MALFORMATION, Q28.3 TECHNIQUE: Multiplanar multisequence MRI of the brain was performed. Both noninfused and contrast i nfused sequences were performed. IV Contrast injected was cc Dotarem. COMPARISON: MR MR BRAIN WO/W from 02/19/2023 FINDINGS: Large right frontal AVM. There has been previous embolization treatment. ARTERIAL: Internal carotid arteries are patent in the skull base and cavernous sinuses. Ophthalmic a rteries arise from the intra cavernous internal carotid arteries. There appears to be preserved godfrey ncy of the major intracranial arteries. AVM: There is a large amount of signal corresponding to the deposited embolic material from previous interventional treatment. There is no single dominant supplying artery but the AVM arises from the region of the right anterior cerebral and right middle cerebral arteries. Also in the region of the lenticulostriate arteries. There is drainage flow evident within dilated draining venous channels anteriorly and anterolaterally draining into the anterior aspect of the superior sagittal sinus. There is no evidence of venous sinus thrombosis IMPRESSION: 1. Large right frontal AVM which is been previously treated with interventional endovascular embolic therapy. Persistent flow is most probably through the right anterior cerebral artery and also from r ight middle cerebral artery and probably its lenticulostriate branches. 2. Venous drainage is predominately through superficial dilated this draining towards the superior sa gittal sinus as well as through right-sided cortical veins. There is also some deep drainage via of a vein coursing into the right lateral ventricle which drains into deep cortical vein-internal cerebr al vein. DATA REPOSITORY:
[2023-02-19 12:01] LABS: BUN 9 mg/dL (7-18); CREATININE 1.3 mg/dL (0.70-1.30); Calcium 9.4 mg/dL (8.5-10.1); Chloride 109 mmol/L (98-107); Estimated GFR 74.85 (mL/min/1.73m2); Glucose 109 mg/dL (74-106); Potassium 3.7 mmol/L (3.5-5.1); Sodium 142 mmol/L (136-145)
[2023-02-19] MEDS: Gadoterate meglumine 20 ML VIAL IVP (12:36)
--- NOTE | 2023-02-19 13:45 | DI.VRAD_ITS ---
PROCEDURE INFORMATION: Exam: MRA Head Without and With Contrast; Arteriography Exam date and time: 02/19/2023 11:39 AM Age: 32 years old Clinical indication: Condition or disease; Other: Avm - cerebrovascular malformation; Prior surgery; Surgery date: 6+ months; Surgery type: Unknown TECHNIQUE: Imaging protocol: Magnetic resonance angiography head without and with contrast. Angiographic sequences such as [id number] (TOF) or Time-resolved contrast techniques were performed. Exam focused on the arteries. Contrast material: DOTAREM; Contrast volume: 18 ml; Contrast route: INTRAVENOUS (IV); COMPARISON: CT BRAIN CTA 12/28/2021 7:46 PM FINDINGS: Preserved patency of the major intracranial arteries. Other vasculature: Arteriovenous malformation with nidus in right frontal region. Large amount embolic material corresponding to location AVM nidus from previous treatment. Dilated draining veins extending anteriorly and anterolaterally via sphenoparietal sinus with dilatation of the anterior portion the superior sagittal sinus. No single large supplying artery but there does appear to be contiguity from the anterior cerebral and middle cerebral artery on right well as lenticulostriate. No evidence venous sinus thrombosis. IMPRESSION: Previous endovascular therapy for right frontal arteriovenous malformation. Large amount of embolic material in expected location of the AVM nidus. Persistent flow through the AVM likely supplied by right anterior cerebral artery but to lesser extent middle cerebral artery and possibly lenticulostriate arteries. Persistent dilated draining veins extending anteriorly to dilated anterior portion of superior sagittal sinus as well as inferolaterally to right-sided cortical veins. Dictated and Authenticated by: Jamil Boyle MD. Ordering:FREDA Shine MD
--- NOTE | 2023-02-19 13:50 | DI.VRAD_ITS ---
Addendum created by Jamil Boyle MD on 02/19/2023 5:08:54 PM EST: THIS REPORT CONTAINS FINDINGS THAT MAY BE CRITICAL TO PATIENT CARE. The findings were verbally communicated via telephone conference with Rl Low at 5:08 PM EST on 02/19/2023. The findings were acknowledged and understood. Initial report created on 02/19/2023 1:50:04 PM EST: PROCEDURE INFORMATION: Exam: MR Head Without and With Contrast Exam date and time: 02/19/2023 11:39 AM Age: 32 years old Clinical indication: Condition or disease; Other: Avm - cerebrovascular malformation; Prior surgery; Surgery date: 6+ months; Surgery type: Unknown TECHNIQUE: Imaging protocol: Magnetic resonance imaging of the head without and with contrast. Contrast material: DOTAREM; Contrast volume: 18 ml; Contrast route: INTRAVENOUS (IV); COMPARISON: MR VENOUS BRAIN WO/W 02/19/2023 11:39 AM FINDINGS: Brain: No acute infarct. No parenchymal or extra-axial fluid collection. There is some evidence of a small amount deep venous drainage seen along the ependymal surface of the right lateral ventricle with dilatation of right thalamostriate vein right internal cerebral vein. Cerebral ventricles: See Brain finding. Bones/joints: Unremarkable. Paranasal sinuses: Opacified right maxillary antrum. Mastoid air cells: Normal as visualized. No mastoid effusion. Orbital cavities: Unremarkable. 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 Diffuse residual signal voids, component of which represent embolic material but there is also flow along the periphery of the nidus. Dilated draining cortical veins inferolaterally right hemisphere anteriorly to dilated anterior portion of superior sagittal sinus. Soft tissues: Unremarkable. IMPRESSION: Evidence of residual flow through large right frontal AVM nidus. Although this study and MRA performed contemporaneously show primarily superficial drainage, there is a small amount of deep venous drainage as described above. No abnormal signal within the adjacent brain parenchyma. Dictated and Authenticated by: Jamil Boyle MD. Ordering:FREDA Shine MD
== END ==
PROVIDERS: PCP Family Medicine; Visit Provider Neurological Surgery
DX: Q28.3 Other malformations of cerebral vessels (principal)
CPT/HCPCS: 70546; 70553; 80048

== ENCOUNTER 2024-01-06 14:46 | Emergency (ER) | payer MEDICARE, MEDICAID, SELFPAY ==
[2024-01-06 14:48] VITALS: BP 126/76; PULSE 96; RESP 15; TEMP 36.7; O2SAT 94
[2024-01-06 14:51] VITALS: BP 126/76; PULSE 96; RESP 15; TEMP 36.7; O2SAT 94
--- NOTE | 2024-01-06 15:15 | ED.GENADUL_ITS ---
Discharge Plan Disposition Patient Disposition: Home Condition: Stable Discharge Details Clinical Impression: Upper respiratory infection, AVM (arteriovenous malformation) brain, Partial symptomatic epilepsy with complex partial seizures, intractable, with status epilepticus Primary Care Provider: Veronika Palmer ED Provider: Radha De Souza Home Meds and New Rx's Prescriptions: No Action topiramate [Topamax] 200 mg tablet 200 mg PO BID Qty: 180 3RF lacosamide [Vimpat] 200 mg tablet 200 mg PO BID clonazepam 1 mg Tablet 2 mg PO QHS Qty: 60 0RF clonazepam 1 mg tablet 1 mg PO QAM Qty: 30 0RF clobazam 10 mg tablet 25 mg PO BID Patient Comments: TAKE ONE TABLET BY MOUTH TWICE A DAY citalopram 10 mg tablet 10 mg PO DAILY Patient Comments: TAKE 1 TABLET BY MOUTH EVERY DAY lamotrigine 200 mg tablet 300 mg PO BID Patient Comments: TAKE 1 AND 1/2 TABLETS BY MOUTH TWICE DAILY baclofen 10 mg tablet 10 mg PO TID PRN Patient Comments: TAKE ONE TABLET BY MOUTH THREE TIMES A DAY NEEDED hydroxyzine HCl 25 mg tablet 25 mg PO QID PRN Discharge Instructions Instructions: Viral Upper Respiratory Infection, Adult (DC) Additional Instructions: You were seen in the emergency department today for evaluation of persistent cough and bodyaches. In our department you have a full physical examination performed, had an x-ray that did not show any sign of pneumonia. It is safe for you to go home, your COVID test is pending and you will be contacted with any positive results. Unfortunately, there are no antibiotics or medications that would make the symptoms go away faster. We recommend that you continue supportive care. You can take 2 extra strength Tylenol every 6 hours as needed for fever or pain, use good hydration and nutrition, and any [id number] cough syrups or honey can be used for cough. Please continue to use your albuterol inhaler as prescribed. You need to contact your primary care provider in follow-up to discuss any symptoms that change, worsen, or persist. You can also return to the emergency department if you have any changes or concerns. Thank you for allowing us to be part of your care. HPI General Mode of arrival: ambulatory . Date/Time Provider Initiated Documentation: 01/06/24 14:53 . Limitations to Documentation: no limitations . Information obtained by: patient, family and old records reviewed . HPI Narrative: HPI: This is a 33-year-old male patient with a past medical history significant for epilepsy, migraine, and AVM, who is presenting for evaluation of cough and bodyaches. The patient reports that for the last 2 weeks, he has noted a cough that is productive of white sputum or dry. He is noted generalized achiness in his joints, increased fatigue. Has had mild sore throat, no difficulty swallowing or maintaining his p.o. intake. Denies nasal symptoms such as stuffiness or runny nose. The patient has felt warm but has not measured temperature, has been managing his symptoms at home with Tylenol. He states that he has school-aged children but has not had any known sick contacts. Patient is not experiencing any nausea or vomiting at this time, he has not had any changes to bowel or bladder habits. He has a history of asthma, uses his albuterol inhaler 2 times per day and this is unchanged from baseline. Exam: Gen: Awake and alert, in no apparent distress HEENT: Non-icteric sclera,. Posterior pharynx without erythema, exudates. No tender lymphadenopathy Neck: Supple Lungs: No apparent respiratory distress, normal respiratory effort. Lung sounds clear and equal bilaterally without wheezes, rhonchi, rales CV: Appears well perfused heart regular rate and rhythm, strong distal pulses Abdomen: Non-distended, soft, nontender MSK: Moves 4 extremities without apparent limitation in ROM Skin: Visualized skin without rashes, cyanosis. Neuro: Normal Gait, no obvious focal deficits or facial asymmetry. Speaks in full, clear sentences. Psych: Appropriate for situation. MDM: This is a 33-year-old male patient presenting for evaluation of 2 weeks of cough and bodyaches. My differential includes but is not limited to viral URI, bronchitis, pneumonia. The patient has no wheezing to significantly increased clinical concern for reactive airway disease exacerbation, and has no evidence of fluid overload on physical examination. He is maintaining his oral intake, and I have a low concern for metabolic or electrolyte derangement or dehydration. The patient is hemodynamically appropriate and currently afebrile. Will obtain a COVID and influenza swab, as well as a chest x-ray. ED Course: I independently interpreted the patient's checks x-ray, and reviewed the radiology report, which shows no focal findings such as pneumonia. COVID and influenza testing is negative. I am most concerned for a viral process, and discussed concervative management of this patient to include Tylenol, good hydration and nutrition, honey and phtj-qxh-[id number] medications for cough. He needs to follow-up with his primary care provider in the next few days to discuss this visit and any symptoms that change, worsen, or persist. At this time, the patient has had a full medical evaluation and is safe for discharge to home. They are hemodynamically stable, ambulatory, and tolerating PO. They are understanding of the follow-up plan and return precautions. They left our facility without incident. Radha De Souza MD Related Data Home Medications ?Medication ?Instructions ?Recorded ?Confirmed topiramate 200 mg tablet (Topamax) 200 mg PO BID #180 tab-caps 03/01/18 01/06/24 lacosamide 200 mg tablet (Vimpat) 200 mg PO BID 05/07/21 01/06/24 clonazepam 1 mg tablet 1 mg PO QAM #30 tabs 12/29/21 01/06/24 clonazepam 1 mg tablet 2 mg (2 x 1 mg) PO QHS #60 tabs 12/29/21 01/06/24 clobazam 10 mg tablet 25 mg PO BID 08/15/22 01/06/24 baclofen 10 mg tablet 10 mg PO TID PRN 01/08/23 01/06/24 citalopram 10 mg tablet 10 mg PO DAILY 01/08/23 01/06/24 hydroxyzine HCl 25 mg tablet 25 mg PO QID PRN 01/08/23 01/06/24 lamotrigine 200 mg tablet 300 mg PO BID 01/08/23 01/06/24 Previous Rx's ?Medication ?Instructions ?Recorded topiramate 200 mg tablet (Topamax) 200 mg PO BID #180 tab-caps 03/01/18 clonazepam 1 mg tablet 1 mg PO QAM #30 tabs 12/29/21 clonazepam 1 mg tablet 2 mg (2 x 1 mg) PO QHS #60 tabs 12/29/21 Allergies Allergy/AdvReac Type Severity Reaction Status Date / Time No Known Allergies Allergy Unverified 01/06/24 14:52 General Stated Complaint: RespSymp DWIGHT: 4 Course Vital Signs Vital signs: Vital Signs Temperature 36.7 C 01/06/24 14:48 Pulse 96 H 01/06/24 14:48 Respiratory Rate 15 01/06/24 14:48 Blood Pressure 126/76 01/06/24 14:48 Pulse Oximetry 94 01/06/24 14:48 Temperature 36.7 C 01/06/24 14:51 Temperature Source Oral 01/06/24 14:51 Pulse 96 H 01/06/24 14:51 Respiratory Rate 15 01/06/24 14:51 Respiratory Effort Normal 01/06/24 14:51 Blood Pressure 126/76 01/06/24 14:51 Blood Pressure Position Sitting 01/06/24 14:51 Pulse Oximetry 94 01/06/24 14:51 Oxygen Delivery Method Room Air 01/06/24 14:51 Oxygen Flow Rate 0 01/06/24 14:48 Medical Decision Making Quality:SDOH Health Related Social Needs: No Data to Display PFSH All Active Problems (Updated 01/06/24 @ 15:44 by Radha De Souza MD) Upper respiratory infection (Acute) Acute kidney injury (Acute) Rhabdomyolysis (Acute) Generalized seizure (Acute) COVID-19 (Acute) AVM (arteriovenous malformation) (Acute) Closed fracture of distal clavicle (Acute 01/09/21) Kidney stone on right side (Acute) Contusion of rib on left side (Acute) Clavicle fracture (Acute) Pre-syncope (Acute) Partial symptomatic epilepsy with complex partial seizures, intractable, with status epilepticus (Acute 10/20/16) 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 and with status migrainosus (Acute 08/13/16) Chronic daily headache (Acute 08/13/16) AVM (arteriovenous malformation) brain (Acute) Medical History (Updated 01/06/24 @ 15:44 by Radha De Souza MD) Leukocytosis Anxiety Seizure disorder Cerebral AVM Surgical History S/P coil embolization of cerebral aneurysm Social History Smoking/Tobacco Use Status: Former Tobacco Use Smoking risk assessment performed?: Yes Alcohol Intake: never Drug use: Daily Substance use type: marijuana Housing: apartment Current gender identity: male Do you feel safe at home: Yes Do you feel safe in your relationship?: Yes
--- NOTE | 2024-01-06 15:17 | DI.RAD_ITS ---
Exam(s) XR CHEST 2V PA LATERAL EXAM: XR CHEST 2V PA LATERAL CLINICAL HISTORY: Cough, eval pneumonia TECHNIQUE: 2D digital imaging was performed of the chest. Two images were obtained. PA and lateral views were obtained. COMPARISON: CR,XR XR CHEST 2V PA LATERAL from 01/14/2023 FINDINGS: MEDIASTINUM: Normal. HEART: Normal. PULMONARY VASCULATURE: Normal. LUNGS: No focal consolidating infiltrates. PLEURAL SPACE: No pleural effusion or pneumothorax. BONE:Within normal limits for the patient's age. OTHER FINDINGS:Normal. IMPRESSION: No acute pulmonary findings. DATA REPOSITORY: RADIATION DOSE DELIVERED:
[2024-01-06 15:40] LABS: COVID-19 PCR Negative (Negative); Influenza A PCR Negative (Negative); Influenza B PCR Negative (Negative); RSV PCR Negative (Negative)
[2024-01-06 15:43] LABS: Source Nasopharynx
== END 2024-01-06 15:54 | disposition home or self-care (01) ==
PROVIDERS: Emergency Provider Emergency Medicine; PCP Family Medicine
DX: J06.9 Acute upper respiratory infection, unspecified (principal); G40.101 Localization-related (focal) (partial) symptomatic epilepsy and epileptic syndromes with simple partial seizures, not intractable, with status epilepticus; Q28.2 Arteriovenous malformation of cerebral vessels; Z87.891 Personal history of nicotine dependence
CPT/HCPCS: 87637; 99284; 71046; 99283

== ENCOUNTER 2024-03-10 12:25 | Emergency (ER) | payer MEDICARE, MEDICAID, SELFPAY ==
[2024-03-10 12:49] VITALS: BP 122/70; PULSE 105; RESP 12; TEMP 36.7; O2SAT 96
== END 2024-03-10 13:48 | disposition left against medical advice (07) ==
PROVIDERS: PCP Family Medicine
DX: Z53.21 Procedure and treatment not carried out due to patient leaving prior to being seen by health care provider (principal)

== ENCOUNTER 2024-03-24 16:47 | Emergency (ER) | payer OTHER, MEDICARE, MEDICAID, SELFPAY ==
[2024-03-24 16:48] VITALS: BP 120/76; PULSE 81; RESP 14; TEMP 36.8; O2SAT 97
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
[2024-03-24] MEDS: Cyclobenzaprine 10 MG TAB, 3 TABS/BTL PO (17:10)
[2024-03-24 17:11] VITALS: BP 120/76; PULSE 81; RESP 14; O2SAT 97
== END 2024-03-24 17:12 | disposition home or self-care (01) ==
PROVIDERS: Emergency Provider Emergency Medicine; PCP Family Medicine
DX: S09.8XXA Other specified injuries of head, initial encounter (principal); V49.49XA Driver injured in collision with other motor vehicles in traffic accident, initial encounter; M54.2 Cervicalgia
CPT/HCPCS: 99283

== ENCOUNTER 2024-03-26 16:48 | Emergency (ER) | payer MEDICARE, MEDICAID, SELFPAY ==
[2024-03-26 16:58] VITALS: BP 117/79; PULSE 86; RESP 16; TEMP 36.2; O2SAT 95
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
[2024-03-26 18:50] LABS: HCT 43.8 % (40.0-50.0); HGB 14.5 g/dL (13.5-17.5); MCHC 33.1 % (32.0-36.0); MCV 91 fL (80-95); MPV 10.7 fL (8.0-11.0); Platelet Count 333 10^3/uL (130-400); RBC 4.83 10^6/uL (4.36-5.78); RDW 12.9 % (11.8-14.1); RDW-SD 43.3 fL; WBC 9.46 10^3/uL (4.4-10.8)
[2024-03-26 18:59] LABS: Anion Gap 10.1 mmol/L (3-11); BUN 10 mg/dL (7-18); CO2 25.9 mmol/L (21.0-32.0); CREATININE 1.3 mg/dL (0.70-1.30); Calcium 9.5 mg/dL (8.5-10.1); Chloride 106 mmol/L (98-107); Estimated GFR 74.39 (mL/min/1.73m2); Glucose 91 mg/dL (74-106); Potassium 3.3 mmol/L (3.5-5.1); Sodium 142 mmol/L (136-145)
[2024-03-26] MEDS: Normal Saline - Diluent 50 ML VIAL IJ (19:29)
[2024-03-26] MEDS: Omnipaque 350 MG/ML 100 ML BTL IJ (19:30)
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
== END 2024-03-26 21:03 | disposition left against medical advice (07) ==
PROVIDERS: Emergency Provider Nurse Practitioner Family; PCP Family Medicine
DX: S09.8XXA Other specified injuries of head, initial encounter (principal); R42 Dizziness and giddiness; V49.40XA Driver injured in collision with unspecified motor vehicles in traffic accident, initial encounter; Z53.29 Procedure and treatment not carried out because of patient's decision for other reasons
CPT/HCPCS: 36415; 70496; 70498; 80048; 85027; 99285; 99284; J3490

== ENCOUNTER 2024-04-04 14:08 | Emergency (ER) | payer MEDICARE, MEDICAID, SELFPAY ==
[2024-04-04 14:11] VITALS: BP 118/77; PULSE 96; RESP 18; TEMP 36.6; O2SAT 98
[2024-04-04 14:14] VITALS: BP 118/77; PULSE 96; RESP 18; TEMP 36.6; O2SAT 98
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
[2024-04-04 15:35] VITALS: BP 125/76; PULSE 84; RESP 16; O2SAT 100
== END 2024-04-04 15:40 | disposition home or self-care (01) ==
PROVIDERS: Emergency Provider Student in an Organized Health Care Education/Training Program; PCP Family Medicine
DX: H65.01 Acute serous otitis media, right ear (principal)
CPT/HCPCS: 99283

== ENCOUNTER 2024-04-12 17:35 | Outpatient (REF) | payer MEDICARE, MEDICAID, SELFPAY ==
--- NOTE | 2024-04-12 15:30 | SKI_PTH ---
PATIENT: Ronen Voss LOC: LOCO U#:[id number] AGE/SX: 33/M ROOM: RE04/12/[address]: Cassandra Elizabeth : 1990 BED: DIS: 04/12/2024 SPEC #: [id number] RECD: 04/13/24 12:39 STATUS: HILL RELora #: [id number] MARYSOL: 04/12/24 15:[address]: Cassandra Elizabeth DEPT: Surgical Specimen RECD BY: Uzma Headley ENTERED: 04/13/24 12:40 SP TYPE: ROBERTO GRANGER DR: Veronika Palmer Tissues: 1 - SKIN BIOPSY(SHAVE/PUNCH) Procedures: IMMUNOPEROXIDASE STAIN SKIN LEVEL 4 Comments: [id number]
== END 2024-04-12 17:36 | disposition home or self-care (01) ==
LOC: LBN 17:35
PROVIDERS: PCP Family Medicine; Visit Provider Registered Nurse Maternal Newborn
DX: L98.9 Disorder of the skin and subcutaneous tissue, unspecified (principal); H65.01 Acute serous otitis media, right ear
CPT/HCPCS: 88305; 88361

== ENCOUNTER 2024-08-30 19:22 | Outpatient (REF) | payer MEDICARE, MEDICAID, SELFPAY ==
[2024-09-10 16:04] LABS: Testosterone, Free 8.26 ng/dL (4.85-19.0)
== END 2024-08-30 19:23 | disposition home or self-care (01) ==
LOC: NCHCN 19:22
PROVIDERS: PCP Family Medicine; Visit Provider Family Medicine
DX: R45.84 Anhedonia (principal)
CPT/HCPCS: 84402; 84403

== ENCOUNTER 2024-10-09 18:00 | Outpatient (REF) | payer MEDICARE, MEDICAID, SELFPAY ==
--- NOTE | 2024-10-09 13:13 | SKI_PTH ---
PATIENT: Ronen Voss LOC: LOCO U#:[id number] AGE/SX: 34/M ROOM: RE10/09/[address]: Cassandra Elizabeth : 1990 BED: DIS: 10/09/2024 SPEC #: [id number] RECD: 10/09/24 18:27 STATUS: HILL RELora #: [id number] MARYSOL: 10/09/24 13:[address]: Cassandra Elizabeth DEPT: Surgical Specimen RECD BY: Uzma Headley ENTERED: 10/09/24 18:28 SP TYPE: ROBERTO GRANGER DR: Veronika Palmer Tissues: 1 - SKIN BIOPSY(SHAVE/PUNCH) 2 - SKIN BIOPSY(SHAVE/PUNCH) Procedures: SKIN LEVEL 4 Comments: [id number]
== END 2024-10-09 18:01 | disposition home or self-care (01) ==
LOC: LBN 18:00
PROVIDERS: PCP Family Medicine; Visit Provider Registered Nurse Maternal Newborn
DX: D10.6 Benign neoplasm of nasopharynx (principal)
CPT/HCPCS: 88305